=== PATIENT | male | born 1935 ===

== ENCOUNTER 2023-04-15 09:50 | Inpatient (IN) | payer MEDICARE, OTHER ==
--- NOTE | 2023-04-15 10:13 | ED Physician Documentation ---
PD HPI ABD PAIN - Stated complaint Stated Complaint: D/N/WEAK - Chief complaint Chief Complaint: Abd Pain - History obtained from History obtained from: Patient - History of Present Illness Timing - onset: How many days ago (2-3) Timing - duration: Days (2-3) Timing - details: Abrupt onset, Still present Quality: Cramping, Aching, Pain Location: Epigastric, Periumbilical Radiation: No: Chest, Lower back Improved by: No: Eating Worsened by: Eating. No: Moving, Breathing Associated symptoms: Nausea, Melena. No: Fever, Vomiting, Dysuria (has penaloza leg bag chronically), Near syncope / syncope (but feeling of generally weak this morning.) Similar symptoms before: Has not had sx before Recently seen: Not recently seen Review of Systems Constitutional: reports: Fatigue. denies: Fever, Chills Nose: denies: Rhinorrhea / runny nose, Congestion Cardiac: denies: Chest pain / pressure Respiratory: denies: Dyspnea, Cough GI: reports: Abdominal Pain (epigastric area), Nausea, Bloody / black stool (loose stool with dark black coloring.). denies: Vomiting, Constipation : denies: Dysuria Neurologic: reports: Generalized weakness, Near syncope (today was having lightheadedness.). denies: Syncope, Altered mental status Endocrine: denies: Easy bruising / bleeding PD PAST MEDICAL HISTORY - Past Medical History Cardiovascular: Hypertension Respiratory: None Neuro: None Endocrine/Autoimmune: None : Indwelling catheter Psych: None - Present Medications Home Medications: Ambulatory Orders Medication Instructions Recorded Confirmed Metoprolol Succinate 100 mg PO DAILY 04/15/23 04/15/23 Tamsulosin [Flomax] 0.4 mg PO DAILY 04/15/23 04/15/23 - Allergies Allergies/Adverse Reactions: Allergies Allergy/AdvReac Type Severity Reaction Status Date / Time No Known Drug Allergies Allergy Verified 04/15/23 10:13 PD ED PE NORMAL - Vitals Vital signs reviewed: Yes - General General: Alert and oriented X 3, Well developed/nourished, Other (pale) - HEENT HEENT: Pharynx benign - Neck Neck: Supple, no meningeal sign, No adenopathy - Cardiac Cardiac: RRR, No murmur - Respiratory Respiratory: No respiratory distress, Clear bilaterally - Abdomen Abdomen: Soft, Non distended, Other (Tender with some local guarding in the epigastric area. No percussion or rebound tenderness. Lower abdomen nontender. Liver does feel slightly enlarged to palpation.). No: Normal bowel sounds (decreased) - Male Male : Deferred - Rectal Rectal: Other (Dark odorous melena appearing stool at the rectum and in his underpants.) - Back Back: No CVA TTP - Derm Derm: Warm and dry. No: Normal color (pale) - Extremities Extremities: No edema, No calf tenderness / cord - Neuro Neuro: Alert and oriented X 3, No motor deficit, Normal speech Results - Vitals Vitals: Vital Signs - 24 hr 04/15/23 04/15/23 04/15/23 10:08 10:29 10:49 Temperature 36.4 C L Heart Rate 99 90 89 Respiratory 30 H 18 18 Rate Blood Pressure 60/34 L 97/55 L 81/50 L O2 Saturation 98 96 98 04/15/23 04/15/23 11:44 12:30 Temperature Heart Rate 99 104 H Respiratory 18 25 H Rate Blood Pressure 109/75 94/52 L O2 Saturation 97 97 Oxygen O2 Source Room air - Labs Labs: Microbiology 04/15/23 10:23 Occult Blood - Final Stool - Loose Consistency Laboratory Tests 04/15/23 04/15/23 04/15/23 10:16 10:16 10:16 WBC 17.0 H RBC 2.84 L Hgb 10.1 L Hct 30.8 L MCV 108.5 H MCH 35.6 H MCHC 32.8 RDW 13.6 Plt Count 249 MPV 9.2 Neut # (Auto) 13.8 H Lymph # (Auto) 0.9 L Page # (Auto) 1.9 H Eos # (Auto) 0.0 Baso # (Auto) 0.0 Absolute Nucleated RBC 0.00 Nucleated RBC % 0.0 PT 14.0 H INR 1.3 H APTT 28.0 Sodium 130 L Potassium 5.2 H Chloride 97 L Carbon Dioxide 22 Anion Gap 11.0 BUN 75 H Creatinine 1.2 Estimated GFR (MDRD) 57 L Glucose 132 H Calcium 9.6 Magnesium 1.9 Total Bilirubin 0.4 AST 14 ALT 8 L Alkaline Phosphatase 330 H B-Natriuretic Peptide Total Protein 5.2 L Albumin 2.9 L Globulin 2.3 Albumin/Globulin Ratio 1.3 Lipase 11 Carcinoembryonic Ag Free PSA % Free PSA Total PSA Nasal Adenovirus (PCR) Nasal B. parapertussis DNA (PCR) Nasal Coronavir 229E PCR Nasal Coronavir HKU1 PCR Nasal Coronavir NL63 PCR Nasal Coronavir OC43 PCR Nasal Enterovir/Rhinovir PCR Nasal Influenza B PCR Nasal Influenza A PCR Nasal Parainfluen 1 PCR Nasal Parainfluen 2 PCR Nasal Parainfluen 3 PCR Nasal Parainfluen 4 PCR Nasal RSV (PCR) Nasal B.pertussis DNA PCR Nasal C.pneumoniae (PCR) Graham Human Metapneumo PCR Nasal M.pneumoniae (PCR) Nasal SARS-CoV-2 (PCR) Ethyl Alcohol 40.3 Blood Type Blood Type Recheck Antibody Screen 04/15/23 04/15/23 04/15/23 10:16 10:16 10:16 WBC RBC Hgb Hct MCV MCH MCHC RDW Plt Count MPV Neut # (Auto) Lymph # (Auto) Page # (Auto) Eos # (Auto) Baso # (Auto) Absolute Nucleated RBC Nucleated RBC % PT INR APTT Sodium Potassium Chloride Carbon Dioxide Anion Gap BUN Creatinine Estimated GFR (MDRD) Glucose Calcium Magnesium Total Bilirubin AST ALT Alkaline Phosphatase B-Natriuretic Peptide 82 Total Protein Albumin Globulin Albumin/Globulin Ratio Lipase Carcinoembryonic Ag 32.5 Free PSA > 176.000 H % Free PSA TNP Total PSA 1240.000 H Nasal Adenovirus (PCR) Nasal B. parapertussis DNA (PCR) Nasal Coronavir 229E PCR Nasal Coronavir HKU1 PCR Nasal Coronavir NL63 PCR Nasal Coronavir OC43 PCR Nasal Enterovir/Rhinovir PCR Nasal Influenza B PCR Nasal Influenza A PCR Nasal Parainfluen 1 PCR Nasal Parainfluen 2 PCR Nasal Parainfluen 3 PCR Nasal Parainfluen 4 PCR Nasal RSV (PCR) Nasal B.pertussis DNA PCR Nasal C.pneumoniae (PCR) Graham Human Metapneumo PCR Nasal M.pneumoniae (PCR) Nasal SARS-CoV-2 (PCR) Ethyl Alcohol Blood Type Blood Type Recheck Antibody Screen 04/15/23 04/15/23 04/15/23 10:38 10:58 12:10 WBC RBC Hgb 9.3 L Hct 28.2 L MCV MCH MCHC RDW Plt Count MPV Neut # (Auto) Lymph # (Auto) Page # (Auto) Eos # (Auto) Baso # (Auto) Absolute Nucleated RBC Nucleated RBC % PT INR APTT Sodium Potassium Chloride Carbon Dioxide Anion Gap BUN Creatinine Estimated GFR (MDRD) Glucose Calcium Magnesium Total Bilirubin AST ALT Alkaline Phosphatase B-Natriuretic Peptide Total Protein Albumin Globulin Albumin/Globulin Ratio Lipase Carcinoembryonic Ag Free PSA % Free PSA Total PSA Nasal Adenovirus (PCR) NOT DETECTED Nasal B. parapertussis DNA (PCR) NOT DETECTED Nasal Coronavir 229E PCR NOT DETECTED Nasal Coronavir HKU1 PCR NOT DETECTED Nasal Coronavir NL63 PCR NOT DETECTED Nasal Coronavir OC43 PCR NOT DETECTED Nasal Enterovir/Rhinovir PCR NOT DETECTED Nasal Influenza B PCR NOT DETECTED Nasal Influenza A PCR NOT DETECTED Nasal Parainfluen 1 PCR NOT DETECTED Nasal Parainfluen 2 PCR NOT DETECTED Nasal Parainfluen 3 PCR NOT DETECTED Nasal Parainfluen 4 PCR NOT DETECTED Nasal RSV (PCR) NOT DETECTED Nasal B.pertussis DNA PCR NOT DETECTED Nasal C.pneumoniae (PCR) NOT DETECTED Graham Human Metapneumo PCR NOT DETECTED Nasal M.pneumoniae (PCR) NOT DETECTED Nasal SARS-CoV-2 (PCR) NOT DETECTED Ethyl Alcohol Blood Type O POSITIVE Blood Type Recheck Antibody Screen NEGATIVE 04/15/23 12:10 WBC RBC Hgb Hct MCV MCH MCHC RDW Plt Count MPV Neut # (Auto) Lymph # (Auto) Page # (Auto) Eos # (Auto) Baso # (Auto) Absolute Nucleated RBC Nucleated RBC % PT INR APTT Sodium Potassium Chloride Carbon Dioxide Anion Gap BUN Creatinine Estimated GFR (MDRD) Glucose Calcium Magnesium Total Bilirubin AST ALT Alkaline Phosphatase B-Natriuretic Peptide Total Protein Albumin Globulin Albumin/Globulin Ratio Lipase Carcinoembryonic Ag Free PSA % Free PSA Total PSA Nasal Adenovirus (PCR) Nasal B. parapertussis DNA (PCR) Nasal Coronavir 229E PCR Nasal Coronavir HKU1 PCR Nasal Coronavir NL63 PCR Nasal Coronavir OC43 PCR Nasal Enterovir/Rhinovir PCR Nasal Influenza B PCR Nasal Influenza A PCR Nasal Parainfluen 1 PCR Nasal Parainfluen 2 PCR Nasal Parainfluen 3 PCR Nasal Parainfluen 4 PCR Nasal RSV (PCR) Nasal B.pertussis DNA PCR Nasal C.pneumoniae (PCR) Graham Human Metapneumo PCR Nasal M.pneumoniae (PCR) Nasal SARS-CoV-2 (PCR) Ethyl Alcohol Blood Type Blood Type Recheck O POSITIVE Antibody Screen - Rads (name of study) chest xray Relevant Findings:: Prelim report reviewed, EMP independent interpretation of test (left effusion. cardiomegaly. No infiltrate per se.) Abdpelvic CT angio Relevant Findings:: Prelim report reviewed (prostate enlarged and irregular. Some wall thickening in rectal area. Bone lytic lesions spine and left 8th rib fracture. Left lower lung pneumonia versus tumor.), EMP independent interpretation of test PD Medical Decision Making - ED course Complexity details: reviewed results, re-evaluated patient (After 2 L of fluid his blood pressure is now normotensive at 109 systolic. Heart rate remains nontachycardic though he is on a beta-julianna. He is still having some moderate pain in the upper abd and I can give some medication for that at this point. His color is improve), considered differential (having initially low BP and has melena stools and epigastric pains for 2-3 days. Presume ulcer/gastritis, with GI bleed. Will get blood count, type and screen, chemistry panel. Will get CT angio of abd. ), d/w patient, d/w [employer] consultant (tomya cted dr mikie nieto, who will consult. Talked with Dr. Delgado - has GI bleed as immediate issue. Has apparent prostate issue or rectal, with spine bone mets and a lung pneumonia versus tumor. These will need evaluating. He has penaloza and Urologist at [facility]. Presume prostate biopsy outpt.) Reviewed Lab Results: Initial blood count shows a hemoglobin of 10. He does not need transfusing at this time. We will recheck it in 1 to 2 hours. ED course: BP improved to above 100 systolic with 1-2 liters NS fluid bolus. Given IV protonix. Also some pain meds IV dilaudid 0.5 mg once BP improved. His color improved from pale to better color. Initial Hgb was 10 so not needing transfusion yet. Will recheck blood count in 1-2 hours. Rectal exam was rory melena wihtout red blood. No noted mass. Sent card to lab. - Critical Care Time(min): 45 Comments: GI bleeding. Initially hypotensive. Time Includes: Direct patient care, Reassess patient, Coordinate care, Medical consult Data interpretation: Labs Procedures excluded from critical care time: EKG Departure - Departure Disposition: 66 [facility] DC/Xfer Clinical Impression: Transient hypotension, Acute GI bleeding, Enlarged prostate, Chronic indwelling Penaloza catheter, Lesion of lung, Bone lesion Condition: Serious Record reviewed to determine appropriate education?: Yes Discharge Date/Time: 04/15/23 14:06
[2023-04-15] MEDS ORDERED: SODIUM CHLORIDE 0.9% 1,000 ML IV STA ×4 (10:26→13:10)
[2023-04-15] MEDS ORDERED: PANTOPRAZOLE 40 MG VIAL IVP STA (10:27)
[2023-04-15 10:38] LABS: BASOPHILS % (AUTO) 0.2 %; HCT - HEMATOCRIT 30.8 % (42.0-52.0); HGB - HEMOGLOBIN 10.1 g/dL (14.0-18.0); LYMPHOCYTES # (AUTO) 0.9 10^3/uL (1.5-3.5); LYMPHOCYTES % (AUTO) 5.5 %; MEAN CORPUSCULAR HEMOGLOBIN 35.6 pg (27.0-31.0); MEAN CORPUSCULAR HGB CONC 32.8 g/dL (32.0-36.0); MEAN CORPUSCULAR VOLUME 108.5 fL (80.0-94.0); MEAN PLATELET VOLUME 9.2 fL (7.4-11.4); MONOCYTES # (AUTO) 1.9 10^3/uL (0.0-1.0); MONOCYTES % (AUTO) 11.3 %; NEUTROPHILS # (AUTO) 13.8 10^3/uL (1.5-6.6); NEUTROPHILS % (AUTO) 80.9 %; PLT - PLATELET COUNT 249 10^3/uL (130-450); RED BLOOD COUNT 2.84 10^6/uL (4.70-6.10); RED CELL DISTRIBUTION WIDTH 13.6 % (12.0-15.0)
[2023-04-15 10:48] LABS: ALBUMIN 2.9 g/dL (3.2-5.5); ALBUMIN/GLOBULIN RATIO 1.3 (1.0-2.2); BILIRUBIN,TOTAL 0.4 mg/dL (0.2-1.0); CALCIUM 9.6 mg/dL (8.5-10.3); CREATININE 1.2 mg/dL (0.6-1.3); ETOH - ETHANOL 40.3 mg/dL; MAGNESIUM 1.9 mg/dL (1.7-2.3); POTASSIUM 5.2 mmol/L (3.5-4.5); TOTAL PROTEIN 5.2 g/dL (6.4-8.9)
[2023-04-15 10:51] LABS: INR 1.3 (0.8-1.2)
--- NOTE | 2023-04-15 10:51 | XRAY Report ---
PROCEDURE: Chest 1 View X-Ray INDICATIONS: chest pain TECHNIQUE: One view of the chest was acquired. COMPARISON: None. FINDINGS: Surgical changes and devices: None. Lungs and pleura: No pneumothorax is seen. There is blunting of the left costophrenic angle. General ized prominence can be seen. No rory focal infiltrates are seen. Mediastinum: Mediastinal contours appear normal. Heart size is moderately enlarged. Calcification i s seen of the aortic arch. Bones and chest wall: No suspicious bony lesions. Age-appropriate degenerative changes are seen. Overlying soft tissues appear unremarkable. IMPRESSION: Cardiomegaly and interstitial prominence with a likely left-sided pleural effusion. CHF is suspected. Reviewed by: Carlos Mccarthy MD on 04/15/2023 9:49 AM AVELINA Approved by: Carlos Mccarthy MD on 04/15/2023 9:49 AM AVELINA Station ID: [id number]
[2023-04-15] MEDS ORDERED: HYDROmorphone 0.5 MG/0.5 ML SYRINGE IVP STA (11:47)
[2023-04-15 11:53] LABS: B. PARAPERTUSSIS- RESP PCR PAN NOT DETECTED; B. PERTUSSIS- RESP PCR PANEL NOT DETECTED; C. PNEUMONIAE- RESP PCR PANEL NOT DETECTED; CORONAVIRUS 229E-RESP PCR NOT DETECTED; CORONAVIRUS HKU1-RESP PCR NOT DETECTED; CORONAVIRUS NL63-RESP PCR NOT DETECTED; CORONAVIRUS OC43-RESP PCR NOT DETECTED; HUMAN METAPNEUMOVIRUS NOT DETECTED; INFLUENZA A- RESP PCR PANEL NOT DETECTED; INFLUENZA B - RESP PCR PANEL NOT DETECTED; M. PNEUMONIAE- RESP PCR PANEL NOT DETECTED; PARAINFLUENZA VIRUS 1 NOT DETECTED; PARAINFLUENZA VIRUS 2 NOT DETECTED; PARAINFLUENZA VIRUS 3 NOT DETECTED; PARAINFLUENZA VIRUS 4 NOT DETECTED; RHINOVIRUS/ENTEROVIRUS NOT DETECTED; RSV- RESP PCR PANEL NOT DETECTED; SARS-CoV-2 -RESP PCR PANEL NOT DETECTED
[2023-04-15] MEDS: MAG HYDROX/AL HYDROX/SIMETH 30 ML UDC PO STA (11:55)
[2023-04-15 12:14] LABS: HCT - HEMATOCRIT 28.2 % (42.0-52.0); HGB - HEMOGLOBIN 9.3 g/dL (14.0-18.0)
--- NOTE | 2023-04-15 12:27 | CT Report ---
PROCEDURE: ANGIO ABDOMEN/PELVIS W INDICATIONS: melena/GI bleeding CONTRAST: 100ml omni 300 TECHNIQUE: After the administration of intravenous contrast, 2.5 mm thick sections acquired from the diaphragm t o the symphysis. 10 mm maximum-intensity projection (MIP) reformats were then acquired. For radiati on dose reduction, the following was used: automated exposure control, adjustment of mA and/or kV ac cording to patient size. COMPARISON: Correlation is made with the accompanying chest radiograph. FINDINGS: Image quality: Excellent. Aorta: Atherosclerotic calcification is seen. 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 Mesenteric arteries: Celiac trunk, superior and inferior mesenteric arteries appear patent. Pelvic arteries: Generalized vascular calcification can be seen, without rory stenosis. Extravascular soft tissues: There is consolidation seen involving the left lower lobe, with internal gas and potential internal necrosis. There is a moderate to large hiatal hernia. The heart size is wi thin normal limits. Mild to moderate coronary artery calcification is seen. Heart size is normal. Li juan miguel is normal in size and enhancement. Water density anterior left renal cysts are seen. Gallbladder wall does not appear thickened. . Biliary system is non dilated. Pancreas enhances normally. No a drenal nodules. The spleen is small and irregular. Kidneys are normal in size and enhancement, withou t hydronephrosis. There is a simple left renal cysts measuring water density and 19 mm. No findings of active GI extravasation can be seen. Moderate wall thickening can be seen involving th e rectum. Non opacified bowel loops otherwise are normal in wall thickness and caliber. No free flui d or air. Diverticulosis can be seen, without rory findings of active diverticulitis. Enlarged retroperitoneal lymph nodes are seen. There is a left periaortic lymph node seen on series 2 image 35 measuring 22 x 20 mm in greatest axial dimension. Enlarged right pelvic lymph nodes are see n, including a lymph node on series 2 image 62 measuring 18 x 17 mm in greatest axial dimension. No ventral hernias. There is a mildly displaced left posterior eighth rib fracture. Remote appearing rib fractures are se en. Numerous sclerotic bony lesions are seen throughout the visualized bones. There is moderate levo convex lumbar scoliosis. There is a degree of bony fusion seen at L2-L3 level. Degenerative changes a re seen throughout. No vertebral body compression fractures. A Lopez catheter seen, which decompresses the bladder. The prostate is irregular. Mild fat-containing bilateral inguinal hernias are seen. IMPRESSION: There is moderate wall thickening seen involving the rectum. Please consider neoplasm in this patient with this given history. - Please consider lower endoscopy for further evaluation. No findings of active GI bleeding can be seen at the time of this study. Enlarged retroperitoneal and right iliac chain lymph nodes are seen, representing metastatic disease until proven otherwise. 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 There is a mildly displaced left posterior eighth rib frac ture. Remote appearing rib fractures are seen. The prostate is irregular. Please consider prostate cancer in this patient with sclerotic bony metast atic disease. 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 Left lower lobe pulmonary lesion, with internal gas and potential internal necrosis. Please consider neoplasm versus necrotizing pneumonia. Small and irregular spleen. 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 Additional findings: Moderate to large hiatal hernia Left anterior liver cysts Simple left renal cyst Diverticulosis, without findings of active diverticulitis. Levoconvex scoliosis Focal L2-L3 degenerative change with vertebral body fusion Lopez catheter Mild bilateral fat-containing inguinal hernias Reviewed by: Carlos Mccarthy MD on 04/15/2023 11:25 AM AVELINA Approved by: Carlos Mccarthy MD on 04/15/2023 11:25 AM AVELINA Station ID: [id number]
[2023-04-15] MEDS ORDERED: ACETAMINOPHEN 325 MG TABLET PO PRN (12:34)
[2023-04-15] MEDS ORDERED: ONDANSETRON 4 MG/2 ML VIAL IVP PRN (12:34)
[2023-04-15] MEDS ORDERED: ONDANSETRON ODT 4 MG TABLET TL PRN (12:34)
--- NOTE | 2023-04-15 12:42 | HISTORY & PHYSICAL EXAMINATION ---
Chief Complaint - Chief Complaint Chief Complaint: Right upper quadrant pain with weakness and diarrhea x3 days History of Present Illness - Admitted From Admitted From:: HOME - History Obtained From Records Reviewed: [facility] History obtained from: Dr. Paz, patient and son (son was on Phone) Exam Limitations: patient keeps falling asleep - History of Present Illness HPI Comment/Other: This is an 88-year-old male who lives alone in his own home. Son lives in a trailer on the same property. When I spoke to the son about dad's history, son was not able to really share very much. He says that dad is a very private person. Son does not know who dad's primary care provider is; how often is dad seen; what dad's medical problems are; or his medications. He does not take his dad to doctors visits. Dad is still independent and drives himself. The patient is very sleepy. Keeps on drifting off in my history. I have to shake his shoulder gently to wake him up. Tells me he sees the [employer] and sees Derek Henao. He has a past medical history of high blood pressure. He says he does not have any other medical problems but his son shared with me that dad had ulcers in his stomach in the past. The only other problem is has is a chronic indwelling Lopez catheter. But patient or son cannot tell me why he has an indwelling Lopez catheter. Patient just says "I cannot pee". When I ask the patient if he has a problem with a large prostate or history of prostate cancer, he says not that he is aware of. He still dresses himself, feeds himself. Drives his car to appointments or to the recycling center with his wine bottles. Son goes to the grocery store for him. According to son tara, 5 years ago patient began drinking heavily. The patient himself denies alcohol abuse. But he used to drink socially. With his . She would control his drinking but only serving him wine when she wanted him to drink. Or she would dilute his glass with ice. When she , he took it very hard and was drinking upwards of 4 to 8 glasses of wine a day. He was started around 3 in the afternoon. Take a break with dinner and TV watching. But then go back to drinking toward the end of his TV watching as he went to bed. He fell several times because he was inebriated. After 3 years he stopped drinking that much. 1 fall really scared him and embarrassed him because he broke a rib. He had to call his son to come get him. Son noticed that after that, he still drank but less so. Anywhere from 1 glass of wine to 3 glasses of wine in the afternoon. 5 weeks ago the patient started developing right rib cage pain. It felt a lot like a rib fracture that he had before. Pretty much that is when he started slowing down. The rib was really hurting him. He was taking Tylenol. Drinking wine to control the pain. He was not taking Motrin, Aleve, ibuprofen etc. The son had some leftover oxycodone and gave his dad 2 tablets and he has been using his son's oxycodone and the alcohol to control his pain. A year ago he was hospitalized at [facility] for urinary tract infection. He was in the hospital for 10 days. He recovered but ever since then he has had a Lopez catheter. He and his son described a procedure where they "stuck something in his lung to see what was behind the left side". But not much more was remembered. After that, he goes every month to get his Lopez change. At the [employer] [facility] with Dr. Derek Henao. Patient describes being "okay" with appetite. No unexpected weight loss. No fevers, chills, sweats. He wears glasses, and may have early cataracts. He is slightly deaf. He coughs every single day and brings up clear phlegm. Denies hemoptysis. He is always short of breath. But he does not wear oxygen. The shortness of breath is mainly when he tries to stand for too long or walk for too long. He does not define what "too long is". He denies chest pain, pleuritic chest pain, orthopnea other than the RL rib cage popping rib pain. Ankles are occasionally swollen but that is not new. He denies any abdominal pain or GI complaints until this last week. He noticed that he was having increasing bowel movements. Sometimes they were black, sometimes they were brown. In contrast to his son's history, he states that he drinks on a daily basis, but only 1 large glass of wine a day. He denies nonsteroidal therapy. He started smoking at the age of 18 and smoked until the age of 62. He denies current smoking. He does not remember having a colonoscopy. He has diffuse bony pain. Back has become more painful is lower T spine and L spine over the last few months. Hips and knees very stiff. In the last few weeks, he has noticed that his right lower rib cage is popping. Every time he takes a deep breath it is a sharp stabbing pain. He has fallen 3 times in the last 6 months because he has been losing his balance. Once he sat down but missed the chair and ended up on the floor. He was not inebriated with that. He denies memory loss, syncope, seizures. He lost his balance because "I am getting old, why do you think?". No new skin lesions. Denies suicidal ideation. Denies depression. In the last 24 to 48 hours the bowel movements have come with increasing frequency and more liquid in consistency. He is starting to become incontinent. He became weak, uncoordinated. Did not have any appetite. When he started feeling like he was having abdominal pain and he was brought in. The abdominal pain is in the upper abdomen, epigastric. Periumbilical. Nonradiating. Took away his appetite. But no emesis or vomiting of blood. In the ER temperature was 36.4. Heart rate 99. Blood pressure 60/34. Respirations 30. 98% on room air. He says abdominal pain was 8 out of a 10. He was alert and oriented and well-nourished well-developed but pale. He is lips had purpleish black discoloration that wipes off. He said that is from his daily wine. He had a soft, nondistended abdomen. Tender with some local guarding in the epigastric area. Lower abdomen was nontender. Liver felt slightly enlarged. On rectal exam he had a dark malodorous melena at the rectum and on his underpants. Hemoglobin was 10.1. White cell count 17. Platelet 249. Sodium 130, potassium 5.2. BUN 75. Creatinine 1.2. Glucose 132. Bili and liver enzymes were normal. Alk phos elevated at 330. Total protein is 5.2. Albumin 2.9. Alcohol was 40. Chest x-ray had cardiomegaly and interstitial prominence with a left-sided pleural effusion. CHF is suspected. Abdomen and pelvis CT angiogram had consolidation involving the left lower lobe with gas and potential internal necrosis. Moderate to large hiatal hernia. Moderate coronary artery calcification. Heart size normal. Bladder density left renal cyst seen. No adrenal nodules. Spleen small and irregular. No findings of active GI extravasation is seen. He has moderate wall thickening involving the rectum. No free fluid or air. Diverticulosis without diverticulitis. Enlarged retroperitoneal lymph nodes. Enlarged periaortic. Enlarged pelvic nodes. A mildly displaced left posterior eighth rib fracture. Other remote rib. Fractures are seen. Numerous sclerotic bony lesions throughout the visualized bones. Moderate levoconvex lumbar scoliosis. Lopez in place. Mild fat- containing bilateral inguinal hernias. The overall picture is enlarged nodes representing metastatic disease, sclerotic bony metastatic disease, one displaced left posterior rib fracture with other rib fractures. An irregular prostate. 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 There is a left lower lobe pulmonary lesion with internal gas and potential necrosis. Consider neoplasm versus necrotizing pneumonia. The patient was discussed with the ER provider. And I initially placed him in observation status thinking he was a simple GI bleed. The case had also been discussed with general surgery for possible endoscopy. I now realize that this patient is a much more complicated medical history with possible complication of tumor, possible future alcohol withdrawal, AND GI bleed. I may end up changing him to inpatient status sooner rather than later. History - Past Medical History Cardiovascular: reports: Hypertension Respiratory: reports: COPD Neuro: reports: Other (falls at home) Endocrine/Autoimmune: reports: None GI: reports: None : reports: Benign prostate hypertrophy, Indwelling catheter HEENT: reports: Chronic vision loss Psych: reports: None Musculoskeletal: reports: Osteoarthritis, Scoliosis, Chronic back pain Derm: reports: None MRSA Hx?: No - Family & Social History Family History Comment/Other: Mom and dad of heart disease respectively at the age of 78 and 80. 2 brothers are . 1 of prostate cancer. He does not know what the second 1 of. His sister is healthy. 2 sons. Both healthy. 1 daughter? is healthy. Living arrangement: At home Living Situation: Alone (Son lives on same property in his own trailer) Social History Notes: Born in [place]. Ended up at [facility] because his dad was in the [employer]. 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 Started smoking at the age of 18 and smoked until the age of 62. Sometimes 2 packs/day. Does not feel he has an alcohol problem. Does not really share with me how much he drinks on direct questioning. is for 5 years. Lives in his own home. Son has a separate trailer on the property nearby.. - Substance History Use: Uses substance without health or social issues: Alcohol Abuse: Recurrent use of substance despite neg consequences: Alcohol Dependence: Experiences withdrawal or developed tolerances: NONE - POLST Patient has POLST: No POLST Status: DNR Meds/Allgy - Home Medications Home Medications: Ambulatory Orders Medication Instructions Recorded Confirmed Metoprolol Succinate 100 mg PO DAILY 04/15/23 04/15/23 Tamsulosin [Flomax] 0.4 mg PO DAILY 04/15/23 04/15/23 - Allergies Allergies/Adverse Reactions: Allergies Allergy/AdvReac Type Severity Reaction Status Date / Time No Known Drug Allergies Allergy Verified 04/15/23 10:13 Review of Systems - Other Findings Other Findings: 13 point review of systems completed and noted in HPI Prior Level of Functionality: Still drives. Rarely. Maybe once or twice a month to get himself to his appointments. Son does the rest with regards to grocery shopping. Still dresses himself, cooks for himself, bathe without assistance. All of this until 2 weeks ago when he started getting weak for unknown reasons. About the same time as when his black stool started. Exam - Vital Signs Reviewed Vital Signs: Yes Vital Signs: Vital Signs x48h Temp Pulse Resp BP Pulse Ox 04/15/23 12:30 104 H 25 H 94/52 L 97 04/15/23 11:44 99 18 109/75 97 04/15/23 10:49 89 18 81/50 L 98 04/15/23 10:29 90 18 97/55 L 96 04/15/23 10:08 36.4 C L 99 30 H 60/34 L 98 - Physical Exam General Appearance: positive: Moderate distress (Some rib retraction, and use of abdominal wall musculature to breathe), Lethargic (Keeps on falling asleep in midsentence. Knows where he is and not understanding why he is here.He knows the date. Eyes close at half mast and not completely.) Eyes Bilateral: positive: PERRL, Other (Left lid drags lower than right lid) ENT: positive: Dry mucous membranes, Other (Blackish purple wine stains on his lower lips) Neck: positive: No JVD, Other (Shotty adenopathy and no stiffness) Respiratory: positive: Other (Tachypnea, appears to be in respiratory distress but denies it. Very quiet lung sounds with prolonged and exhalation phase but no wheezing, rales or rhonchi) Cardiovascular: positive: Regular rate & rhythm, Tachycardia, Systolic murmur Peripheral Pulses: positive: 1+ Abdomen: positive: Nml bowel sounds, Tenderness (Periumbilical and epigastric, mild. No rebound or guarding), Hepatomegaly Rectal: positive: Stool - heme POS, Other (Melanotic black stool at rectal vault and on underwear. Already tested and fecal occult blood positive) Skin: positive: Warm, Dry Extremities: positive: Full ROM, Pedal edema Neurologic/Psychiatric: positive: Oriented x3 (But going in and out of of either consciousness or falling asleep), CN's nml (2-12), Motor nml Conclusion/Plan - Problem List (1) Melena Conclusion/Plan: No previous history of colonoscopy. Patient states he drinks wine on a daily basis but protested is only 1 glass a day. MCV is 108. Differential diagnosis includes upper or lower GI bleed. Because of the possible drinking history he may have alcoholic gastritis. He may have peptic ulcer disease (Especially in view of the fact that he has a previous history of ulcer disease). He may have esophageal varices. There is also the question of the rectal anatomic abnormality seen on CT scan that may end up being prostate cancer. But he would be at risk for colorectal cancer. Plan: Observation status at this time but patient is getting more obtunded and anemic And hypotensive so I will change him to inpatient status Surgery consult for EGD and flex sig Serial hemograms and transfuse below 8 Give normal saline 1 L bolus (2) Acute blood loss anemia Conclusion/Plan: Start Protonix IV push daily Clear liquids until midnight and then make n.p.o. for endoscopy Enema for flex sig tomorrow Check serial hemograms every 6-8 hours and transfuse if below 8, Type and screen PRBC Surgery consult (3) Enlarged prostate Conclusion/Plan: Both the patient and his son state that he has no history of prostate cancer. Yet CT confirms a large prostate. He has a chronic indwelling Lopez catheter. I checked a PSA and his total PSA is 1240. Free PSA is greater than 176. CEA is 32.5. He has multiple bony sclerotic lesions compatible with diffuse metastatic disease. He has a broken rib. And he has possible tumor necrosis in the left upper lobe. Putting it altogether my suspicion is that of metastatic prostate cancer. Plan: I am going to ask [facility] to send me a copy of the admission history and physical and discharge summary from a year ago where he was hospitalized for a UTI. That is when he ended up with a chronic indwelling Lopez catheter. The son describes some type of biopsy procedure of the lung and I am hoping the discharge summary will give me some information there. I have shared my thought process with both the son and the patient. They are both shocked. They feel like they have been completely sideswipe. They never saw this coming. (4) Chronic indwelling Lopez catheter Conclusion/Plan: He reports going [facility] [place] [employer] [facility] to get changed once a month. He sees Dr. Derek Henao. The leg bag is very, very, very foul-smelling. We will provide him with a new 1 and I believe he is already had his Lopez changed out in the ER and I will verify that. I have also asked for records from [facility] to be sent to me to include admission history and physical and discharge summary from a year ago (5) Do not resuscitate status Conclusion/Plan: I asked the patient that if his heart were to stop or his lungs were to stop, did he want me to do all aggressive measures to keep him alive? Did he want me to intubate him and support him with a breathing machine and did he want me to do chest compressions? His answer was immediate and a No. He does not want to be resuscitated. But if he needs antibiotics or blood products or surgery he would like to be considered for those if they could improve the quality of his life. (6) COPD (chronic obstructive pulmonary disease) Conclusion/Plan: He has a widened AP diameter. Is a neck smoker. Has a prolonged and exhalation phase. No outright wheezing. But he is short of breath. I am a little bit alarmed about the tachypnea and the use of abdominal muscles to breathe. I ordered a blood gas and his pH is 7.435, PCO2 34, PO2 64.1. He is on room air. No acidosis and mild alkalosis. PO2 is greater than 60 so does not need o xygen. I was afraid that he was getting hypercapnic and that is why the sleepiness. He tells me he is just exhausted. I will order as needed DuoNeb Qualifiers: COPD type: unspecified COPD Qualified Code(s): J44.9 - Chronic obstructive pulmonary disease, unspecified (7) Macrocytosis Conclusion/Plan: I do not have any old records to see if his anemia is old. How long is his macrocytosis been present? But with wine stains on his lips, and an MCV of 108, and his stated history of an alcohol level of 40 today, with a past history of abuse, I have to suspect current alcohol abuse. I asked the patient point blank if he drank too much and he said no. But he was very cagey about how much he did drink and really could not give me a direct answer. I asked him to be clear with me because I worry about alcohol withdrawal. He said he is never gone through withdrawal. And it should not be a worry during this admission. However his son gave me a different story. Plan: Banana bag He is currently very sleepy. Not agitated. Not hypertensive. But I would start CIWA protocol if he starts getting anxious or irritable (8) Hyperkalemia Conclusion/Plan: Repeat potassium. He is not in acute renal failure. He is not on spironolactone. He is not on an CJ inhibitor. This may be simple cell lysis. - Lab Results Lab results reviewed: Yes Fish Bones: 04/15/23 12:10 04/15/23 10:16 - Diagnostic Imaging Results Diagnostic Imaging Results: positive: Final report reviewed Core Measures - Anticipated LOS I expect patient to be DC'd or transferred within 96 hours.: Yes - DVT/VTE - Prophylaxis VTE/DVT Device ordered at admit?: Yes
[2023-04-15] MEDS: oxyCODONE 5 MG TABLET PO PRN (12:53)
[2023-04-15] MEDS ORDERED: SODIUM CHLORIDE 0.9% 1,000 ML IV SCH (13:00)
--- NOTE | 2023-04-15 13:38 | PHARMACY PROGRESS NOTE ---
- Best Possible Medication History Admit Date and Time: 04/15/23 1234 Processed by: Nursing As the person ultimately responsible for medication therapy, providers are able to order a medication from an existing home medication list in [facility] via the "Reconcile Routine" prior to Confirmation of that medication by client technical support associate. Such practice is discouraged except when the physician, in their clinical judgment, deems that a medical need exists for a medication without regard to previous use.
--- NOTE | 2023-04-15 14:13 | CONSULTATION NOTE ---
Surgery Consult - Admit Date Hospital Admission Date: 04/15/23 - Consult Date Consult Date: 04/15/23 Requesting Provider: Dr. Delgado - Home Meds/Allergies Home Medications: Patient History Medication Instructions Recorded Confirmed Metoprolol Succinate 100 mg PO DAILY 04/15/23 04/15/23 Tamsulosin [Flomax] 0.4 mg PO DAILY 04/15/23 04/15/23 Allergies/Adverse Reactions: Allergies Allergy/AdvReac Type Severity Reaction Status Date / Time No Known Drug Allergies Allergy Verified 04/15/23 10:13 - Vital Signs Vital Signs: Last Vital Signs Temp 97.5 F L 04/15/23 13:17 Pulse 107 H 04/15/23 13:17 Resp 27 H 04/15/23 13:17 BP 110/59 L 04/15/23 13:17 Pulse Ox 98 04/15/23 13:17 O2 Flow Rate Intake & Output: Intake & Output 04/12/23 04/13/23 04/14/23 04/15/23 23:59 23:59 23:59 23:59 Intake Total 3000 Output Total 700 Balance 2300 - Lab Results Result Diagrams: 04/15/23 12:10 04/15/23 10:16 - Consultation Note Consultation Note: General Surgery Consultation Note Assessment: 1) Anemia, suspect due to recent UGI bleed; The melena suggests a likely UGI source 2) Abnormal prostate, sclerotic bone mets, and retroperitoneal and iliac lymphadenopathy on CT scan, suspicious for prostate neoplasm with mets 3) LLL necrosis on CT - etiology unknown 4) History of PUD (1950's) 5) Hyperkalemia 6) Frailty 7) Protein/calorie malnutrition Recommendation: 1) IV fluids 2) IV PPI, oral mylanta prn 3) May have clears; NPO after midnight. 4) Serial H&H, transfuse as indicated 5) EGD and flexible sigmoidoscopy tomorrow. Fleets enema tonight and tomorrow morning. 6) PSA 7) Obtain more information regarding past medical history especially regarding treatment of previous prostate disease. <><><><><><><><><><> Reason for Consultation Melena, anemia Chief Complaint Fatigue, weakness, SOB HPI Mathieu is an 88 year old male who hasn't been feeling well for several weeks. He has lost his appetite and has occasional RUQ discomfort. He tried using Tylenol for the abdominal pain and this helped. Three days ago he became very weak and fatigued. Walking about his home was exhausting and brought on SOB. He started to pass black, liquid stool and experienced dizziness. His son brought him into the ED today where he was found to have melena and anemia. He was admitted to the Medical Hospitalist Service and I was asked to assist in his evaluation and management. Benitez had a prior episode of melena in the 1950's that he thinks was due to a stomach ulcer. He has not been on antacid medication recently and denies the use of ASA or NSAID's. He has never had a colonoscopy and denies a FH of intestinal malignancy. He denies hematemesis, coffee-ground emesis, or hematochezia. Benitez does admit to a dry, non-productive cough that has been present for several weeks. He denies fevers or chills. Past Medical History PUD by history. There are no medical records that document prior treatment. Treated at [facility] one year ago for infection (? doesn't know why). Also doesn't know why bladder catheter was placed. Past Surgical History Right shoulder surgery, age 14, (fracture) T&A Family History Negative for colorectal issues [place] Current Home Medications Metoprolol Tamsulosin Allergies None ROS Pertinent positives Anorexia, melena, RUQ pain, diarrhea, dry, productive cough All other reviewed systems negative Physical Examination Vital Signs: T 97.5, P 107, BP 110/59, RR 27, O2sat 98% (RA) BMI: 27 GENERAL APPEARANCE: Normal development, normal body habitus PSYCHIATRIC: AAO; Comfortable EYES: Pupils equal, round and reactive to light, sclera anicteric EARS, NOSE, MOUTH, THROAT: Hearing normal, Oral mucous membranes moist and without lesions; NECK: No crepitus, lymphadenopathy, or thyromegaly LUNGS: Clear to auscultation without wheezing; No use of accessory muscles to breathe; No pain with deep breath CARDIOVASCULAR: Heart-NSR without murmurs; Palpable carotid arteries - no bruits; ABD: Soft, distended but soft and no tenderness; no ventral hernia; No palpable mass LYMPHATIC: Neck, Axillae, Groin: No palpable adenopathy GENITALIA- Lopez catheter in place RECTAL: Normal sphincter tone, Black stool, Prostate enlarged and firm, No palpable intra-luminal rectal mass on digital exam Labs Hgb 9.3, Hct 28.2, Plt 249K INR 1.3 T.P 5.2; Alb 2.9; ALK Phos 330 Imaging CXR - Poor visualization of the LLL with non-visualization of the left hemidiaphragm CTA ABD/Pelvis - Rectal fullness, enlarged pelvic and retroperitoneal lymph nodes, irregular prostate gland with calcifications, sclerotic bone lesions consistent with mets, multiple old rib fractures, diverticulosis, hiatal hernia, Consolidated left lower lobe of the lung with associated gas (necrosis), No CTA evidence of an active GI bleed All images were personally reviewed by me for this encounter. Sawyer West MD, [facility] General Surgery Service [phone]
[2023-04-15] MEDS: PANTOPRAZOLE 40 MG VIAL IVP SCH (14:38)
[2023-04-15] MEDS ORDERED: SODIUM CHLORIDE 0.9% 1,000 ML IV ONE (15:45)
[2023-04-15 15:54] LABS: ABG PH 7.44 (7.35-7.45)
[2023-04-15 15:55] LABS: ABG BASE EXCESS -1.5 mmol/L (-2.0-3.0); ABG HCO3 22.3 mmol/L (22.0-26.0); ABG OXYGEN SATURATION 92 % (94-98); ABG PCO2 34 mmHg (34-45); ABG PO2 64 mmHg (80-100); ABG TCO2 23.4 MMOL/L (21.0-29.0); ALLEN TEST POSITIVE
[2023-04-15] MEDS: SODIUM CHLORIDE FLUSH 0.9% 10 ML SYRINGE IVP SCH (16:14)
[2023-04-15 16:17] LABS: HCT - HEMATOCRIT 25.9 % (42.0-52.0); HGB - HEMOGLOBIN 8.6 g/dL (14.0-18.0); MEAN CORPUSCULAR HEMOGLOBIN 36.3 pg (27.0-31.0); MEAN CORPUSCULAR HGB CONC 33.2 g/dL (32.0-36.0); MEAN CORPUSCULAR VOLUME 109.3 fL (80.0-94.0); MEAN PLATELET VOLUME 9.2 fL (7.4-11.4); RED BLOOD COUNT 2.37 10^6/uL (4.70-6.10); RED CELL DISTRIBUTION WIDTH 13.9 % (12.0-15.0); WHITE BLOOD COUNT 14.8 x10^3/uL (4.8-10.8)
[2023-04-15] MEDS ORDERED: ZINC OXIDE 20% OINT 30 GM TUBE TOP PRN (16:17)
[2023-04-15] MEDS ORDERED: iohexoL-300 100 ML VIAL IVP ONE (19:23)
[2023-04-15] MEDS: METOPROLOL TARTRATE 25 MG TABLET PO SCH (20:27)
[2023-04-15] MEDS: TAMSULOSIN 0.4 MG CAPSULE PO SCH (20:28)
[2023-04-15 22:16] LABS: HCT - HEMATOCRIT 25.5 % (42.0-52.0); HGB - HEMOGLOBIN 8.3 g/dL (14.0-18.0); MEAN CORPUSCULAR HEMOGLOBIN 35.9 pg (27.0-31.0); MEAN CORPUSCULAR HGB CONC 32.5 g/dL (32.0-36.0); MEAN CORPUSCULAR VOLUME 110.4 fL (80.0-94.0); MEAN PLATELET VOLUME 9.2 fL (7.4-11.4); RED BLOOD COUNT 2.31 10^6/uL (4.70-6.10); RED CELL DISTRIBUTION WIDTH 13.8 % (12.0-15.0); WHITE BLOOD COUNT 13.9 x10^3/uL (4.8-10.8)
[2023-04-16] MEDS: SODIUM CHLORIDE FLUSH 0.9% 10 ML SYRINGE IVP SCH ×4 (00:27→23:38)
[2023-04-16 05:23] LABS: BASOPHILS % (AUTO) 0.2 %; EOSINOPHILS % (AUTO) 0.2 %; HCT - HEMATOCRIT 24.7 % (42.0-52.0); HGB - HEMOGLOBIN 7.9 g/dL (14.0-18.0); LYMPHOCYTES # (AUTO) 0.7 10^3/uL (1.5-3.5); LYMPHOCYTES % (AUTO) 5.6 %; MEAN CORPUSCULAR HEMOGLOBIN 35.4 pg (27.0-31.0); MEAN CORPUSCULAR VOLUME 110.8 fL (80.0-94.0); MEAN PLATELET VOLUME 9.4 fL (7.4-11.4); MONOCYTES # (AUTO) 1.6 10^3/uL (0.0-1.0); MONOCYTES % (AUTO) 12.3 %; NEUTROPHILS # (AUTO) 10.5 10^3/uL (1.5-6.6); NEUTROPHILS % (AUTO) 80.1 %; NRBC ABSOLUTE COUNT (AUTO) 0.03 x10^3/uL; NUCLEATED RED BLOOD CELLS AUTO 0.2 /100WBC; PLT - PLATELET COUNT 199 10^3/uL (130-450); RED BLOOD COUNT 2.23 10^6/uL (4.70-6.10); RED CELL DISTRIBUTION WIDTH 14.1 % (12.0-15.0); WHITE BLOOD COUNT 13.2 x10^3/uL (4.8-10.8)
[2023-04-16 05:32] LABS: SLIDE REVIEW? Indicated
[2023-04-16 05:46] LABS: CALCIUM 9.2 mg/dL (8.5-10.3); CREATININE 0.8 mg/dL (0.6-1.3); POTASSIUM 4.2 mmol/L (3.5-4.5)
[2023-04-16 05:54] LABS: PLATELET ESTIMATE, MANUAL NORMAL (130-450,000) (NORMAL); PLATELET MORPHOLOGY NORMAL APPEARANCE (NORMAL)
[2023-04-16 05:55] LABS: RBC MORPHOLOGY (MULTIPLE) 1+ MACROCYTOSIS (NORMAL); WBC MORPHOLOGY (MULTIPLE) NORMAL APPEARANCE (NORMAL)
[2023-04-16] MEDS: PANTOPRAZOLE 40 MG VIAL IVP SCH (06:25)
[2023-04-16] MEDS ORDERED: SALINE ENEMA 133 ML BOTTLE RC SCH (07:00)
[2023-04-16] MEDS ORDERED: IPRATROPIUM/ALBUTEROL 3 ML NEB INH PRN (07:56)
--- NOTE | 2023-04-16 08:02 | ANESTHESIA ---
Pre-Anesthesia VS, & Labs - Diagnosis anemia - Procedure EGDm flex sig Vital Signs: Temp Pulse Resp BP Pulse Ox O2 Flow Rate 36.5 C 111 H 28 H 96/51 L 94 04/16/23 05:08 04/16/23 05:08 04/16/23 05:08 04/16/23 05:08 04/16/23 05:08 Height: 5 ft 10 in Weight (kg): 84 kg Body Mass Index: 26.5 BMI Classification: Overweight - NPO >8 hours - Lab Results Current Lab Results: Laboratory Tests 04/16/23 04:57: Sodium 134 L, Potassium 4.2, Chloride 105, Carbon Dioxide 25, Anion Gap 4.0 L, BUN 50 H, Creatinine 0.8, Estimated GFR (MDRD) 92, Glucose 116 H, Calcium 9.2 04/16/23 04:57: WBC 13.2 H, RBC 2.23 L, Hgb 7.9 L, Hct 24.7 L, MCV 110.8 H, MCH 35.4 H, MCHC 32.0, RDW 14.1, Plt Count 199, MPV 9.4, Neut # (Auto) 10.5 H, Lymph # (Auto) 0.7 L, Teller # (Auto) 1.6 H, Eos # (Auto) 0.0, Baso # (Auto) 0.0, Absolute Nucleated RBC 0.03, Nucleated RBC % 0.2, Manual Slide Review Indicated, WBC Morphology NORMAL APPEARANCE, Platelet Estimate NORMAL (130-450,000), Platelet Morphology NORMAL APPEARANCE, RBC Morph Micro Appear 1+ MACROCYTOSIS 04/15/23 22:10: WBC 13.9 H, RBC 2.31 L, Hgb 8.3 L, Hct 25.5 L, MCV 110.4 H, MCH 35.9 H, MCHC 32.5, RDW 13.8, Plt Count 205, MPV 9.2 04/15/23 16:06: WBC 14.8 H, RBC 2.37 L, Hgb 8.6 L, Hct 25.9 L, MCV 109.3 H, MCH 36.3 H, MCHC 33.2, RDW 13.9, Plt Count 207, MPV 9.2 04/15/23 15:45: Bld Gas Analysis Time 1555, Sample Site RIGHT RADIAL, ABG pH 7.44, ABG pCO2 34, ABG pO2 64 L, ABG HCO3 22.3, ABG Total CO2 23.4, ABG O2 Saturation 92 L, ABG Base Excess -1.5, [place] Test POSITIVE, Room Air YES 04/15/23 12:10: Blood Type Recheck O POSITIVE 04/15/23 12:10: Hgb 9.3 L, Hct 28.2 L 04/15/23 10:38: Blood Type O POSITIVE, Antibody Screen NEGATIVE 04/15/23 10:16: Free PSA > 176.000 H, % Free PSA TNP, Total PSA 1240.000 H 04/15/23 10:16: Carcinoembryonic Ag 32.5 04/15/23 10:16: B-Natriuretic Peptide 82 04/15/23 10:16: Sodium 130 L, Potassium 5.2 H, Chloride 97 L, Carbon Dioxide 22, Anion Gap 11.0, BUN 75 H, Creatinine 1.2, Estimated GFR (MDRD) 57 L, Glucose 132 H, Calcium 9.6, Magnesium 1.9, Total Bilirubin 0.4, AST 14, ALT 8 L, Alkaline Phosphatase 330 H, Total Protein 5.2 L, Albumin 2.9 L, Globulin 2.3, Albumin/Globulin Ratio 1.3, Lipase 11, Ethyl Alcohol 40.3 04/15/23 10:16: PT 14.0 H, INR 1.3 H, APTT 28.0 04/15/23 10:16: WBC 17.0 H, RBC 2.84 L, Hgb 10.1 L, Hct 30.8 L, MCV 108.5 H, MCH 35.6 H, MCHC 32.8, RDW 13.6, Plt Count 249, MPV 9.2, Neut # (Auto) 13.8 H, Lymph # (Auto) 0.9 L, Teller # (Auto) 1.9 H, Eos # (Auto) 0.0, Baso # (Auto) 0.0, Absolute Nucleated RBC 0.00, Nucleated RBC % 0.0 Fish Bones: 04/16/23 04:57 04/16/23 04:57 Home Medications and Allergies Home Medications: Ambulatory Orders Metoprolol Succinate 100 mg PO DAILY 04/15/23 Tamsulosin [Flomax] 0.4 mg PO DAILY 04/15/23 Active Medications Acetaminophen (Acetaminophen 325 Mg Tablet) 650 mg PO Q4HR PRN PRN Reason: Pain 1 to 4, or Fever Last Admin: 04/15/23 12:53 Dose: 650 mg Albuterol/Ipratropium (Ipratropium/Albuterol 3 Ml Neb) 3 ml INH RTQID PRN PRN Reason: Shortness of Air/Wheezing Multivitamins 10 ml/ Thiamine HCl 100 mg/ Magnesium Sulfate 2 gm/ Folic Acid 1 mg/ Sodium Chloride 1,015.2 mls @ 100 mls/hr IV DAILY [facility] Methylprednisolone (Methylprednisolone Succinate 40 Mg/Ml Vial) 40 mg IVP TID [facility] Metoprolol Tartrate (Metoprolol Tartrate 25 Mg Tablet) 25 mg PO BID [facility] Last Admin: 04/15/23 20:27 Dose: Not Given Multi-Ingredient Ointment (Zinc Oxide 20% Oint 30 Gm Tube) 1 applic TOP PRN PRN PRN Reason: Skin Care Ondansetron HCl (Ondansetron Odt 4 Mg Tablet) 4 mg TL Q6HR PRN PRN Reason: Nausea / Vomiting Ondansetron HCl (Ondansetron 4 Mg/2 Ml Vial) 4 mg IVP Q6HR PRN PRN Reason: Nausea / Vomiting Oxycodone HCl (Oxycodone 5 Mg Tablet) 5 mg PO Q4HR PRN PRN Reason: Pain 5 to 7 Last Admin: 04/15/23 12:53 Dose: 5 mg Pantoprazole Sodium (Pantoprazole 40 Mg Vial) 40 mg IVP QDAC [facility] Last Admin: 04/16/23 06:25 Dose: 40 mg Sodium Biphosphate/Sodium Phosphate (Saline Enema 133 Ml Bottle) 133 ml RC ONCE [facility] Stop: 04/16/23 09:00 Last Admin: 04/16/23 06:38 Dose: 133 ml Sodium Chloride (Sodium Chloride Flush 0.9% 10 Ml Syringe) 10 ml IVP PRN PRN PRN Reason: NEEDED PER PROVIDER ORDERS Sodium Chloride (Sodium Chloride Flush 0.9% 10 Ml Syringe) 10 ml IVP 0100,0900,1700 [facility] Last Admin: 04/16/23 00:27 Dose: 10 ml Tamsulosin HCl (Tamsulosin 0.4 Mg Capsule) 0.4 mg PO QPM [facility] Last Admin: 04/15/23 20:28 Dose: 0.4 mg Metoprolol Succinate 100 mg PO DAILY 04/15/23 Tamsulosin [Flomax] 0.4 mg PO DAILY 04/15/23 Allergies/Adverse Reactions: Allergies Allergy/AdvReac Type Severity Reaction Status Date / Time No Known Drug Allergies Allergy Verified 04/15/23 10:13 Anes History & Medical History - Anesthetic History Anesthesia Complications: reports: No previous complications Family history of Anesthesia Complications: Denies Family history of Malignant Hyperthermia: Denies - Medical History Cardiovascular: reports: Hypertension Pulmonary: reports: COPD, Shortness of breath, Other Gastrointestinal: reports: GI bleed Urinary: reports: Benign prostate hypertrophy, Indwelling catheter Neuro: reports: None Musculoskeletal: reports: Osteoarthritis, Scoliosis, Chronic back pain Endocrine/Autoimmune: reports: None Skin: reports: None Smoking Status: Former smoker Psychosocial: reports: Alcohol (heavy ETOH) Exam General: Alert, Moderate distress Dental: Poor dentition Mouth Openin Fingerbreadth Neck Mobility: Normal Mallampati classification: II Thyromental Distance: 4-6 cm Respiratory: Accessory muscle use, Rhonchi, Wheezing, Expiration Cardiovascular: Regular rate Plan Anesthesia Type: General, Total IV Consent for Procedure(s) Verified and Reviewed: Yes Code Status: Attempt Resuscitation ASA classification: 4-Incapacitating disease Is this case an emergency?: No
[2023-04-16] MEDS: methylPREDNISolone SUCCINATE 40 MG/ML VIAL IVP SCH ×3 (08:29→21:43)
[2023-04-16] MEDS ORDERED: MORPHINE 2 MG/ML CARPUJECT IVP PRN (08:29)
[2023-04-16] MEDS ORDERED: MULTIVITAMIN 10 ML, THIAMINE INJ 100 MG, MAGNESIUM SULFATE 2 GM, FOLIC ACID INJ 1 MG in... IV SCH ×5 (09:00)
[2023-04-16] MEDS ORDERED: PROPOFOL 200 MG/20 ML VIAL IVP ONE (09:23)
[2023-04-16] MEDS ORDERED: PHENYLEPHRINE 10 MG/ML VIAL ONE (10:04)
--- NOTE | 2023-04-16 10:23 | OPERATIVE REPORT ---
Operative Report - General Admit Date: 04/15/23 - Other Other Information/Narrative: General Surgery Brief Procedure Note - See Provation for details EGD - Distal esophageal erosions, not actively bleeding; Esophageal varices, Intra-thoracic stomach without evidence of gastritis or ulceration, Normal antrum and pylorus, normal duodenum (1,2), No old or fresh blood in the UGI tract Flex Sig - Normal anus, normal rectal mucosa to 28 cm; melena present. Sawyer West MD General Surgery
--- NOTE | 2023-04-16 10:35 | ANESTHESIA POST OP EVALUATION ---
Anesthesia Post Eval - Post Anesthesia Eval Vitals: Last Vital Signs Temp 37.1 C 04/16/23 10:15 Pulse 116 H 04/16/23 10:31 Resp 28 H 04/16/23 10:15 BP 120/61 04/16/23 10:31 Pulse Ox 92 04/16/23 10:31 O2 Flow Rate CV Function Including HR & BP: Stable Pain Control: Satisfactory Nausea & Vomiting: Negative Mental Status: Baseline Respiratory Status: Airway Patent Hydration Status: Satisfactory Anesthesia Complications: None
[2023-04-16] MEDS: oxyCODONE 5 MG TABLET PO PRN ×2 (10:39→21:43)
[2023-04-16] MEDS: METOPROLOL TARTRATE 25 MG TABLET PO SCH ×2 (10:40→21:41)
[2023-04-16] MEDS ORDERED: LORazepam 2 MG/ML VIAL IVP PRN (11:07)
--- NOTE | 2023-04-16 11:12 | PROVIDER PROGRESS NOTE ---
Subjective - Prog Note Date Prog Note Date: 04/16/23 Prog Note Time: 11:10 - Subjective Pt reports feeling: No change Subjective: Very cranky. His right rib hurts from where it keeps on "popping". At one point he said that it hurt too much and he did not want to do the EGD. I ordered morphine 2 mg every 2 hours as needed. That was able to control the pain for him to go to EGD. General surgery discussed the findings with me. He has distal esophageal erosions, they are not actively bleeding. He does not have esophageal varices. His stomach is in his chest with a hiatal hernia and there is no evidence of gastritis or ulceration. He has a normal antrum and pylorus. Normal duodenum. No blood was identified in the upper GI tract. As for the flex sig, he went up to 28 cm and there was melena present but it was a normal anus and normal rectum with no lesions seen. The patient is getting increasingly tachycardic, tachypneic and agitated as the morning has gone on. I explained to him that I think he starting alcohol withdrawal. Both sons were at the bedside this morning. Michael and Edy. They asked to speak to me. Nurse let them know that I would be there as soon as they could finish my morning rounds and when I went to the room, both sons were gone. Linn, daughter, was also at the bedside later. I fully updated her on her dad's problems of 1 alcohol abuse, 2 mild alcohol withdrawal, 3 probable metastatic prostate cancer. This resulted in a 45-minute conversation. With the patient and with Linn. At 1 point Linn did leave the room to give her dad privacy and to allow him independent decision thought process. Please see separate dictation under advance care planning. He tells me he is just really tired. The morphine is helping with the rib pain but he says that it makes him sleepy. Current Medications - Current Medications Current Medications: Active Medications Acetaminophen (Acetaminophen 325 Mg Tablet) 650 mg PO Q4HR PRN PRN Reason: Pain 1 to 4, or Fever Last Admin: 04/15/23 12:53 Dose: 650 mg Albuterol/Ipratropium (Ipratropium/Albuterol 3 Ml Neb) 3 ml INH RTQID PRN PRN Reason: Shortness of Air/Wheezing Last Admin: 04/16/23 08:50 Dose: 3 ml Chlordiazepoxide HCl (Chlordiazepoxide 5 Mg Capsule) 10 mg PO Q6HR [facility] Last Admin: 04/16/23 11:28 Dose: 10 mg Multivitamins 10 ml/ Thiamine HCl 100 mg/ Magnesium Sulfate 2 gm/ Folic Acid 1 mg/ Sodium Chloride 1,015.2 mls @ 100 mls/hr IV DAILY [facility] Last Admin: 04/16/23 10:40 Dose: 100 mls/hr Ceftriaxone Sodium 2 gm/ (Sodium Chloride) 100 mls @ 200 mls/hr IV DAILY [facility] Last Infusion: 04/16/23 12:00 Dose: Infused Lorazepam (Lorazepam 2 Mg/Ml Vial) 1 mg IVP Q30M PRN; Protocol PRN Reason: CIWA >8 Methylprednisolone (Methylprednisolone Succinate 40 Mg/Ml Vial) 40 mg IVP TID [facility] Last Admin: 04/16/23 14:05 Dose: 40 mg Metoprolol Tartrate (Metoprolol Tartrate 25 Mg Tablet) 25 mg PO BID [facility] Last Admin: 04/16/23 10:40 Dose: 25 mg Morphine Sulfate (Morphine 2 Mg/Ml Carpuject) 2 mg IVP Q2HR PRN PRN Reason: Severe Pain (Level 7-10) Last Admin: 04/16/23 09:01 Dose: 2 mg Multi-Ingredient Ointment (Zinc Oxide 20% Oint 30 Gm Tube) 1 applic TOP PRN PRN PRN Reason: Skin Care Nicotine (Nicotine 14 Mg Patch) 1 patch TOP DAILY [facility] Last Admin: 04/16/23 14:38 Dose: 1 patch Ondansetron HCl (Ondansetron Odt 4 Mg Tablet) 4 mg TL Q6HR PRN PRN Reason: Nausea / Vomiting Ondansetron HCl (Ondansetron 4 Mg/2 Ml Vial) 4 mg IVP Q6HR PRN PRN Reason: Nausea / Vomiting Oxycodone HCl (Oxycodone 5 Mg Tablet) 5 mg PO Q4HR PRN PRN Reason: Pain 5 to 7 Last Admin: 04/16/23 10:39 Dose: 5 mg Pantoprazole Sodium (Pantoprazole 40 Mg Vial) 40 mg IVP BID [facility] Sodium Chloride (Sodium Chloride Flush 0.9% 10 Ml Syringe) 10 ml IVP PRN PRN PRN Reason: NEEDED PER PROVIDER ORDERS Sodium Chloride (Sodium Chloride Flush 0.9% 10 Ml Syringe) 10 ml IVP 0100,0900,1700 [facility] Last Admin: 04/16/23 09:02 Dose: 10 ml Tamsulosin HCl (Tamsulosin 0.4 Mg Capsule) 0.4 mg PO QPM [facility] Last Admin: 04/15/23 20:28 Dose: 0.4 mg Metoprolol Succinate 100 mg PO DAILY 04/15/23 Tamsulosin [Flomax] 0.4 mg PO DAILY 04/15/23 Objective - Vital Signs/Intake & Output Reviewed Vital Signs: Yes Vital Signs: Vital Signs x48h Temp Pulse Pulse Resp BP BP Pulse Ox 04/16/23 10:51 119 H 30 H 118/63 91 L 04/16/23 10:40 118/63 04/16/23 10:31 116 H 120/61 92 04/16/23 10:15 37.1 C 117 H 28 H 117/57 L 94 04/16/23 08:51 110 H 22 04/16/23 08:04 36.6 C 114 H 26 H 105/52 L 92 04/16/23 05:08 36.5 C 111 H 28 H 96/51 L 94 Intake & Output: Intake & Output 04/13/23 04/14/23 04/15/23 04/16/23 23:59 23:59 23:59 23:59 Intake Total 4830 Output Total 1475 600 Balance 3355 -600 - Objective General Appearance: positive: No acute distress, Moderate distress (From rib pain. And he is short of breath.), Other (Oriented to person, place, time and situation. Intermittently sleepy due to morphine. When I spoke to him he had not yet received an injection.) Eyes Bilateral: positive: PERRL, EOMI ENT: positive: No signs of dehydration Neck: positive: No JVD. negative: Stiff neck Respiratory: positive: Wheezes, Other (He is exhausted. He tells me that he just gets short of breath talking. He will have slight rib retraction and use of abdominal wall muscles to breathe when he has a bunch of sentences strung together. But if at rest, listening to the conversation, he is much more comfortable.). negative: Rales, Rhonchi Cardiovascular: positive: Regular rate & rhythm Abdomen: positive: Non-tender, No organomegaly, Nml bowel sounds, No distention Skin: positive: Warm (He will hold onto my hand and tells me "your hands are too cold"), Dry Extremities: positive: Full ROM, Other (Thick legs with "cankles" , nonpitting. onychomycosis.) Neurologic/Psychiatric: positive: Oriented x3, CN's nml (2-12), Motor nml (but severely fatigued.) - Lab Results Fish Bones: 04/16/23 04:57 04/16/23 04:57 Other Labs: Lab Results x24hrs 04/16/23 04/16/23 04/15/23 Range/Units 04:57 04:57 22:10 WBC 13.2 H 13.9 H (4.8-10.8) x10^3/uL RBC 2.23 L 2.31 L (4.70-6.10) 10^6/uL Hgb 7.9 L 8.3 L (14.0-18.0) g/dL Hct 24.7 L 25.5 L (42.0-52.0) % MCV 110.8 H 110.4 H (80.0-94.0) fL MCH 35.4 H 35.9 H (27.0-31.0) pg MCHC 32.0 32.5 (32.0-36.0) g/dL RDW 14.1 13.8 (12.0-15.0) % Plt Count 199 205 (130-450) 10^3/uL MPV 9.4 9.2 (7.4-11.4) fL Neut # (Auto) 10.5 H (1.5-6.6) 10^3/uL Lymph # (Auto) 0.7 L (1.5-3.5) 10^3/uL [place] # (Auto) 1.6 H (0.0-1.0) 10^3/uL Eos # (Auto) 0.0 (0.0-0.7) 10^3/uL Baso # (Auto) 0.0 (0.0-0.1) 10^3/uL Absolute Nucleated RBC 0.03 x10^3/uL Nucleated RBC % 0.2 /100WBC Manual Slide Review Indicated WBC Morphology NORMAL APPEARANCE (NORMAL) Platelet Estimate NORMAL (130-450,000) (NORMAL) Platelet Morphology NORMAL APPEARANCE (NORMAL) RBC Morph Micro Appear 1+ MACROCYTOSIS (NORMAL) Bld Gas Analysis Time Sample Site ABG pH (7.35-7.45) ABG pCO2 (34-45) mmHg ABG pO2 (80-100) mmHg ABG HCO3 (22.0-26.0) mmol/L ABG Total CO2 (21.0-29.0) MMOL/L ABG O2 Saturation (94-98) % ABG Base Excess (-2.0-3.0) mmol/L J[place]quin Test Room Air Sodium 134 L (135-145) mmol/L Potassium 4.2 (3.5-4.5) mmol/L Chloride 105 (101-111) mmol/L Carbon Dioxide 25 (21-32) mmol/L Anion Gap 4.0 L (6-13) BUN 50 H (6-20) mg/dL Creatinine 0.8 (0.6-1.3) mg/dL Estimated GFR (MDRD) 92 (>89) Glucose 116 H (74-104) mg/dL Calcium 9.2 (8.5-10.3) mg/dL B-Natriuretic Peptide (5-100) pg/mL Carcinoembryonic Ag ng/mL Free PSA (0.16-2.81) ng/mL % Free PSA Total PSA (0.000-2.000) ng/mL Nasal Adenovirus (PCR) Nasal B. parapertussis DNA (PCR) Nasal Coronavir 229E PCR Nasal Coronavir HKU1 PCR Nasal Coronavir NL63 PCR Nasal Coronavir OC43 PCR Nasal Enterovir/Rhinovir PCR Nasal Influenza B PCR Nasal Influenza A PCR Nasal Parainfluen 1 PCR Nasal Parainfluen 2 PCR Nasal Parainfluen 3 PCR Nasal Parainfluen 4 PCR Nasal RSV (PCR) Nasal B.pertussis DNA PCR Nasal C.pneumoniae (PCR) Graham Human Metapneumo PCR Nasal M.pneumoniae (PCR) Nasal SARS-CoV-2 (PCR) Blood Type Blood Type Recheck Antibody Screen 04/15/23 04/15/23 04/15/23 Range/Units 16:06 15:45 12:10 WBC 14.8 H (4.8-10.8) x10^3/uL RBC 2.37 L (4.70-6.10) 10^6/uL Hgb 8.6 L (14.0-18.0) g/dL Hct 25.9 L (42.0-52.0) % MCV 109.3 H (80.0-94.0) fL MCH 36.3 H (27.0-31.0) pg MCHC 33.2 (32.0-36.0) g/dL RDW 13.9 (12.0-15.0) % Plt Count 207 (130-450) 10^3/uL MPV 9.2 (7.4-11.4) fL Neut # (Auto) (1.5-6.6) 10^3/uL Lymph # (Auto) (1.5-3.5) 10^3/uL [place] # (Auto) (0.0-1.0) 10^3/uL Eos # (Auto) (0.0-0.7) 10^3/uL Baso # (Auto) (0.0-0.1) 10^3/uL Absolute Nucleated RBC x10^3/uL Nucleated RBC % /100WBC Manual Slide Review WBC Morphology (NORMAL) Platelet Estimate (NORMAL) Platelet Morphology (NORMAL) RBC Morph Micro Appear (NORMAL) Bld Gas Analysis Time 1555 Sample Site RIGHT RADIAL ABG pH 7.44 (7.35-7.45) ABG pCO2 34 (34-45) mmHg ABG pO2 64 L (80-100) mmHg ABG HCO3 22.3 (22.0-26.0) mmol/L ABG Total CO2 23.4 (21.0-29.0) MMOL/L ABG O2 Saturation 92 L (94-98) % ABG Base Excess -1.5 (-2.0-3.0) mmol/L J[place]quin Test POSITIVE Room Air YES Sodium (135-145) mmol/L Potassium (3.5-4.5) mmol/L Chloride (101-111) mmol/L Carbon Dioxide (21-32) mmol/L Anion Gap (6-13) BUN (6-20) mg/dL Creatinine (0.6-1.3) mg/dL Estimated GFR (MDRD) (>89) Glucose (74-104) mg/dL Calcium (8.5-10.3) mg/dL B-Natriuretic Peptide (5-100) pg/mL Carcinoembryonic Ag ng/mL Free PSA (0.16-2.81) ng/mL % Free PSA Total PSA (0.000-2.000) ng/mL Nasal Adenovirus (PCR) Nasal B. parapertussis DNA (PCR) Nasal Coronavir 229E PCR Nasal Coronavir HKU1 PCR Nasal Coronavir NL63 PCR Nasal Coronavir OC43 PCR Nasal Enterovir/Rhinovir PCR Nasal Influenza B PCR Nasal Influenza A PCR Nasal Parainfluen 1 PCR Nasal Parainfluen 2 PCR Nasal Parainfluen 3 PCR Nasal Parainfluen 4 PCR Nasal RSV (PCR) Nasal B.pertussis DNA PCR Nasal C.pneumoniae (PCR) Graham Human Metapneumo PCR Nasal M.pneumoniae (PCR) Nasal SARS-CoV-2 (PCR) Blood Type Blood Type Recheck O POSITIVE Antibody Screen 04/15/23 04/15/23 04/15/23 Range/Units 12:10 10:58 10:38 WBC (4.8-10.8) x10^3/uL RBC (4.70-6.10) 10^6/uL Hgb 9.3 L (14.0-18.0) g/dL Hct 28.2 L (42.0-52.0) % MCV (80.0-94.0) fL MCH (27.0-31.0) pg MCHC (32.0-36.0) g/dL RDW (12.0-15.0) % Plt Count (130-450) 10^3/uL MPV (7.4-11.4) fL Neut # (Auto) (1.5-6.6) 10^3/uL Lymph # (Auto) (1.5-3.5) 10^3/uL [place] # (Auto) (0.0-1.0) 10^3/uL Eos # (Auto) (0.0-0.7) 10^3/uL Baso # (Auto) (0.0-0.1) 10^3/uL Absolute Nucleated RBC x10^3/uL Nucleated RBC % /100WBC Manual Slide Review WBC Morphology (NORMAL) Platelet Estimate (NORMAL) Platelet Morphology (NORMAL) RBC Morph Micro Appear (NORMAL) Bld Gas Analysis Time Sample Site ABG pH (7.35-7.45) ABG pCO2 (34-45) mmHg ABG pO2 (80-100) mmHg ABG HCO3 (22.0-26.0) mmol/L ABG Total CO2 (21.0-29.0) MMOL/L ABG O2 Saturation (94-98) % ABG Base Excess (-2.0-3.0) mmol/L J[place]quin Test Room Air Sodium (135-145) mmol/L Potassium (3.5-4.5) mmol/L Chloride (101-111) mmol/L Carbon Dioxide (21-32) mmol/L Anion Gap (6-13) BUN (6-20) mg/dL Creatinine (0.6-1.3) mg/dL Estimated GFR (MDRD) (>89) Glucose (74-104) mg/dL Calcium (8.5-10.3) mg/dL B-Natriuretic Peptide (5-100) pg/mL Carcinoembryonic Ag ng/mL Free PSA (0.16-2.81) ng/mL % Free PSA Total PSA (0.000-2.000) ng/mL Nasal Adenovirus (PCR) NOT DETECTED Nasal B. parapertussis DNA (PCR) NOT DETECTED Nasal Coronavir 229E PCR NOT DETECTED Nasal Coronavir HKU1 PCR NOT DETECTED Nasal Coronavir NL63 PCR NOT DETECTED Nasal Coronavir OC43 PCR NOT DETECTED Nasal Enterovir/Rhinovir PCR NOT DETECTED Nasal Influenza B PCR NOT DETECTED Nasal Influenza A PCR NOT DETECTED Nasal Parainfluen 1 PCR NOT DETECTED Nasal Parainfluen 2 PCR NOT DETECTED Nasal Parainfluen 3 PCR NOT DETECTED Nasal Parainfluen 4 PCR NOT DETECTED Nasal RSV (PCR) NOT DETECTED Nasal B.pertussis DNA PCR NOT DETECTED Nasal C.pneumoniae (PCR) NOT DETECTED Graham Human Metapneumo PCR NOT DETECTED Nasal M.pneumoniae (PCR) NOT DETECTED Nasal SARS-CoV-2 (PCR) NOT DETECTED Blood Type O POSITIVE Blood Type Recheck Antibody Screen NEGATIVE 04/15/23 04/15/23 04/15/23 Range/Units 10:16 10:16 10:16 WBC (4.8-10.8) x10^3/uL RBC (4.70-6.10) 10^6/uL Hgb (14.0-18.0) g/dL Hct (42.0-52.0) % MCV (80.0-94.0) fL MCH (27.0-31.0) pg MCHC (32.0-36.0) g/dL RDW (12.0-15.0) % Plt Count (130-450) 10^3/uL MPV (7.4-11.4) fL Neut # (Auto) (1.5-6.6) 10^3/uL Lymph # (Auto) (1.5-3.5) 10^3/uL [place] # (Auto) (0.0-1.0) 10^3/uL Eos # (Auto) (0.0-0.7) 10^3/uL Baso # (Auto) (0.0-0.1) 10^3/uL Absolute Nucleated RBC x10^3/uL Nucleated RBC % /100WBC Manual Slide Review WBC Morphology (NORMAL) Platelet Estimate (NORMAL) Platelet Morphology (NORMAL) RBC Morph Micro Appear (NORMAL) Bld Gas Analysis Time Sample Site ABG pH (7.35-7.45) ABG pCO2 (34-45) mmHg ABG pO2 (80-100) mmHg ABG HCO3 (22.0-26.0) mmol/L ABG Total CO2 (21.0-29.0) MMOL/L ABG O2 Saturation (94-98) % ABG Base Excess (-2.0-3.0) mmol/L J[place]quin Test Room Air Sodium (135-145) mmol/L Potassium (3.5-4.5) mmol/L Chloride (101-111) mmol/L Carbon Dioxide (21-32) mmol/L Anion Gap (6-13) BUN (6-20) mg/dL Creatinine (0.6-1.3) mg/dL Estimated GFR (MDRD) (>89) Glucose (74-104) mg/dL Calcium (8.5-10.3) mg/dL B-Natriuretic Peptide 82 (5-100) pg/mL Carcinoembryonic Ag 32.5 ng/mL Free PSA > 176.000 H (0.16-2.81) ng/mL % Free PSA TNP Total PSA 1240.000 H (0.000-2.000) ng/mL Nasal Adenovirus (PCR) Nasal B. parapertussis DNA (PCR) Nasal Coronavir 229E PCR Nasal Coronavir HKU1 PCR Nasal Coronavir NL63 PCR Nasal Coronavir OC43 PCR Nasal Enterovir/Rhinovir PCR Nasal Influenza B PCR Nasal Influenza A PCR Nasal Parainfluen 1 PCR Nasal Parainfluen 2 PCR Nasal Parainfluen 3 PCR Nasal Parainfluen 4 PCR Nasal RSV (PCR) Nasal B.pertussis DNA PCR Nasal C.pneumoniae (PCR) Graham Human Metapneumo PCR Nasal M.pneumoniae (PCR) Nasal SARS-CoV-2 (PCR) Blood Type Blood Type Recheck Antibody Screen ABX Reporting Has patient been on IV antibiotics over the past 48 hours?: Yes Assessment/Plan - Problem List (1) Melena Impression: (1) Melena Conclusion/Plan: No esophageal varices in the face of alcohol abuse. Distal esophagus with changes that indicate he may have bled from there. Not actively bleeding at this time. He does have a hiatal hernia. Plan: Change to inpatient status Increase Protonix from daily to twice daily Advised patient that he can no longer drink, and to avoid nonsteroidals (2) Acute blood loss anemia Conclusion/Plan: I am monitoring need for transfusion. Laboratory Tests 04/15/23 04/15/23 04/15/23 10:16 12:10 16:06 Hgb 10.1 L 9.3 L 8.6 L 04/15/23 04/16/23 22:10 04:57 Hgb 8.3 L 7.9 L I will change Protonix to 40 mg p.o. twice daily. He will need to do this for a month. Start a regular diet I will change the serial hemogram frequency from every 6 to every 12. There is no fresh bleeding in his stomach and there is old blood in his bowel. If his hemoglobin stays stable between today and tomorrow, and he is eating food, I may discharge him depending on his alcohol withdrawal status. (3) Enlarged prostate Conclusion/Plan: Both the patient and his son state that he has no history of prostate cancer. Yet CT confirms a large prostate. He has a chronic indwelling Lopez catheter. I checked a PSA and his total PSA is 1240. Free PSA is greater than 176. CEA is 32.5. He has multiple bony sclerotic lesions compatible with diffuse metastatic disease. He has a broken rib. And he has possible tumor necrosis in the left upper lobe. Putting it altogether my suspicion is that of metastatic prostate cancer. As I spoke to him during his advance care planning conversation. He reluctantly admits that he suspected this. "I am 88 years old, what did you expect". Plan: I have asked [facility] to send me a copy of the admission history and physical and discharge summary from a year ago where he was hospitalized for a UTI. That is when he ended up with a chronic indwelling Lopez catheter. The son describes some type of biopsy procedure of the lung and I am hoping the discharge summary will give me some information there. I have shared my thought process with both the son and the patient. They are both shocked. They feel like they have been completely sideswipe. They never saw this coming. As of this morning, the records have not arrived. I will ask our health [employer]original community council member to reask for those records. In any case, the patient will need to follow- up with his outpatient primary care provider, Dr. Derek Henao, from there he needs to be referred for biopsy and then options for treatment should be discussed. His cancer appears to have metastasized to bony areas. Including a rib. He also has fallen recently. The rib fracture is really bothering him. I have ordered morphine 2 mg every 4 hours as needed because Tylenol was not helping. I needed something quickly before he went to the OR. And he will not be allowed to take nonsteroidals. (4) Chronic indwelling Lopez catheter Conclusion/Plan: [facility] [place] get changed once a month. He sees Dr. Derek Henao. The leg bag is very, very, very foul-smelling. We will provide him with a new 1 and he has already had his Lopez changed out in the ER. I have also asked for records from [facility] to be sent to me to include admission history and physical and discharge summary from a year ago However he did not have a UA submitted. White cell count is elevated. He was 17 on admission, and 13.2 today. No fever.His urine is red in his Lopez bag. I ordered a Urinalysis and it has proteinuria, large amount of occult blood, moderate leukocyte Estrace, 11-25 red cells, 11-25 white cells, few squamous cells, and many bacteria. Plan: I ordered Rocephin 1 gram daily and transition to po when WBc normal (5) Do not resuscitate status Conclusion/Plan: I asked the patient that if his heart were to stop or his lungs were to stop, did he want me to do all aggressive measures to keep him alive? Did he want me to intubate him and support him with a breathing machine and did he want me to do chest compressions? His answer was immediate and a No. He does not want to be resuscitated. But if he needs antibiotics or blood products or surgery he would like to be considered for those if they could improve the quality of his life. Plan: I will have him sign a POLST form today and put that on our EMR. (6) COPD (chronic obstructive pulmonary disease) Conclusion/Plan: He has a widened AP diameter. Is a smoker. Had a prolonged and exhalation phase on exam and today has new wheezing. He has chronic short of breath and tachypnea. . On the evening of admission, I was concerned about the tachypnea and the use of abdominal muscles to breathe. I ordered a blood gas and his pH is 7.435, PCO2 34, PO2 64.1. He is on room air. No acidosis and mild alkalosis. PO2 is greater than 60 so does not need oxygen. I was afraid that ayla chisholm was getting hypercapnic and that is why the sleepiness. He tells me he is just exhausted. He is already on DuoNeb as needed. I will add Solu-Medrol 40 mg IV push every 8 hours. Qualifiers: COPD type: unspecified COPD Qualified Code(s): J44.9 - Chronic obstructive pulmonary disease, unspecified (7) Macrocytosis Conclusion/Plan: I do not have any old records to see if his anemia is old. How long is his macrocytosis been present? But with wine stains on his lips, and an MCV of 108, and his stated history of an alcohol level of 40 today, with a past history of abuse, I have to suspect current alcohol abuse. I asked the patient point blank if he drank too much and he said no. But he was very cagey about how much he did drink and really could not give me a direct answer. I asked him to be clear with me because I worry about alcohol withdrawal. He said he is never gone through withdrawal. And it should not be a worry during this admission. However his son gave me a different story. He is very irritated today. Did not want to do the endoscopy and finally did it. Now this afternoon we are all talking too much and he wants to be left alone. But no tachycardia, sweats, tremors, hallucinations. Plan: Banana bag Librium 10 mg p.o. 4 times daily CIWA protocol (8) Hyperkalemia Conclusion/Plan: Potassium is 4.2 today (9) Generalized weakness I will have PT and OT see him tomorrow. Assess if this patient is strong enough to go home with home health RN/PT. Or will he need to be in temporary rehab at a facility. He raises his eyebrows when I see them. He tells me he is not going to any facility. I was very noncommittal and said we will just wait for physical therapy to give me an assessment tomorrow
[2023-04-16] MEDS: cefTRIAXone 2 GM in SODIUM CHLORIDE 0.9% MINIBAG 100 ML IV SCH (11:28)
[2023-04-16] MEDS: chlordiazePOXIDE 5 MG CAPSULE PO SCH ×3 (11:28→23:38)
[2023-04-16 11:42] LABS: BILIRUBIN,URINE NEGATIVE (NEGATIVE); GLUCOSE, URINE (UA) NEGATIVE (NEGATIVE); KETONES,URINE (UA) NEGATIVE (NEGATIVE); LEUKOCYTE ESTERASE, URINE MODERATE (NEGATIVE); NITRITE,URINE NEGATIVE (NEGATIVE); OCCULT BLOOD,URINE LARGE (NEGATIVE); PH,URINE 6.5 PH (5.0-7.5); PROTEIN,URINE 30 mg/dL (NEGATIVE); UROBILINOGEN,URINE 0.2 (NORMAL) E.U./dL (NORMAL)
[2023-04-16 11:51] LABS: BACTERIA,URINE Many /HPF (None Seen); CLARITY,URINE CLOUDY (CLEAR); SQUAMOUS EPITHELIAL CELL,UR FEW Squamous (<= Few)
[2023-04-16] MEDS: NICOTINE 14 MG PATCH TOP SCH (14:38)
--- NOTE | 2023-04-16 15:54 | ADVANCE CARE PLANNING NOTE ---
Advance Care Planning - Planning Encounter Date: 04/16/23 Time: 13:00 Purpose: Establish care goals with possibility of prostate cancer that is metastatic Parties in Attendance: Patient, his daughter Linn, and hospitalist Decisional Capacity of the Patient: Alert and oriented to person, place, time and situation. 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 He was hospitalized a year ago for UTI and urinary retention. He was told that he needed a prostate biopsy and a TURP. He declined both. He reluctantly shares that he pretty much thought it was prostate cancer but did not really want to do anything about it. The year has now gone by. He has had a relatively stable status with regards to mobility, diet. However he has been drinking too much. Has had a few falls. 3 in the last couple of months. Right rib cage has been "popping". And now with melena. CT scan done to evaluate bladder shows him to have diffuse osseous metastatic disease. Broken rib. A large prostate. PSA is 1240. He now has blood in the Lopez catheter - Encounter Subjective/Patient's Story: Born in [place]. Ended up at [facility] because his dad was in the [employer]. 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 Started smoking at the age of 18 and smoked until the age of 62. Sometimes 2 packs/day. Does not feel he has an alcohol problem. But his son Edy tells me that dad drank very heavily when the patient's 5 years ago. Was drinking up to 8 maybe 10 glasses of wine a day. Would get inebriated enough to fall down. With the rib fracture and a fall and embarrassment where he had to call his son to pick him up off the floor, the patient cut back on his drinking about 2 years ago. Now down to about 4 glasses of wine a day. Patient stated he is fallen about 3 times in the last few weeks. Has had painful right rib cage with "popping" in that time. A year ago he was hospitalized for urinary retention. He has had a chronic indwelling Lopez catheter since then. He was told that he needed a TURP and biopsy. But he just did not want to do it. He was feeling like surgery would kill him and he just wanted to see how he would feel if he ran time out. He feels that he is done well. It is only been the last couple of months that he has noticed something wrong. He still drives once or twice a month. Gets himself to his doctor's office on the [employer]. Gets his Lopez changed once a month. Bathes himself, feeds himself. One of his sons lives in a trailer nearby. He says that his son may have autism. On admission the patient stated he wanted to be DO NOT RESUSCITATE. He would like to fill out a POLST form to make sure that I follow through on that. He states that he does not have a DURABLE POWER OF UNCLAIMED PROPERTY MANAGER. His daughter asked if she could leave the room because she wanted him to make this decision on his own. When I discussed if he wanted a brother, in-law, or child to be his DPOA he requested that his daughter Linn be the DPOA. With regards to the POLST form, I reiterated his request. He had expressed his request to be DO NOT RESUSCITATE. He still wants to be treated. Still wants to discuss options for treatment. But if he were to after we have exhausted our treatment measures, and he does not have a pulse or pressure, DO NOT RESUSCITATE and DO NOT INTUBATE. He is very fatalistic about this new diagnosis. He does not have much hope that he will survive this. But he does want to discuss getting a work-up, and that includes a biopsy. And he would like to see a cancer specialist to see what his options are. Objective/Medical Story: 88-year-old male who lives in his own home after the of his 5 years ago. Medical problems include peptic ulcer disease in his 40s when he was transfused 5 units. Alcoholism with alcohol abuse in the last 5 years. Remote smoker of 2 packs/day. Benign prostatic hypertrophy with chronic indwelling Lopez catheter for urinary retention. He most likely has undiagnosed COPD according to his exam and wheezing during the stay. He presented as weakness and fatigue getting worse over the last couple of weeks. Stool started turning black a few days ago. Increasing in frequency. Then 2 days ago became incontinent of stool. Finally so weak that he almost could not get off the toilet so son called and brought him into ER. We have diagnosed him as an upper GI bleed. Endoscopy confirms hiatal hernia with the stomach in his chest. Probable reflux into the esophagus giving erosions. But no varices. No stomach ulcers. He has not required blood transfusions. Will be started on a proton pump inhibitor. He is getting increasingly irritated as the admission goes on. I do worry that he may be having early or mild alcohol withdrawal. He is on a banana bag. I will be starting him on Librium. Bony pain is moderate to severe. Tylenol is not working, and oxycodone was helping but not taking the pain away. Son was giving him oxycodone at home in the last week. As such I am starting morphine as well. Other problem identified is that of a UTI. He is started on antibiotics today. Goals of Care: He does not know what his goals of care are yet. He just knows he wants to be DO NOT RESUSCITATE. He would like to discuss his diagnosis and prognosis with oncology before making any decisions. He does note that he never wants to be placed in a nursing facility. He wants to at home when the time comes. Plan: 1. POLST form filled out. Patient is DO NOT RESUSCITATE. Selective tr eatments. 2. Although he has verbally told me that he wants his daughter Linn to be the DPOA, he really does have to fill out some paperwork. I will have social work work with him tomorrow morning to sign that paperwork. 3. I have advised him that a DPOA is not the same thing is a POA. He will need to decide who will work on his finances for him when he cannot do them on his own. He thinks he may be using his son Michael and will let us know later. Or will take care of it when he leaves the hospital. Code Status: Do Not Attempt Resuscitation Time spent on advance care plannin minutes
[2023-04-16] MEDS ORDERED: PANTOPRAZOLE 40 MG VIAL IVP SCH (21:00)
[2023-04-16] MEDS: TAMSULOSIN 0.4 MG CAPSULE PO SCH (21:41)
[2023-04-16] MEDS: PANTOPRAZOLE 40 MG TABLET PO SCH (21:42)
[2023-04-16] MEDS: SODIUM CHLORIDE FLUSH 0.9% 10 ML SYRINGE IVP PRN (21:43)
[2023-04-16] MEDS: SODIUM CHLORIDE 0.65% NASAL SPRAY NAS PRN (22:27)
[2023-04-17 05:34] LABS: HCT - HEMATOCRIT 23.9 % (42.0-52.0); HGB - HEMOGLOBIN 7.8 g/dL (14.0-18.0); LYMPHOCYTES # (AUTO) 0.4 10^3/uL (1.5-3.5); LYMPHOCYTES % (AUTO) 2.9 %; MEAN CORPUSCULAR HEMOGLOBIN 36.3 pg (27.0-31.0); MEAN CORPUSCULAR HGB CONC 32.6 g/dL (32.0-36.0); MEAN CORPUSCULAR VOLUME 111.2 fL (80.0-94.0); MEAN PLATELET VOLUME 9.5 fL (7.4-11.4); MONOCYTES # (AUTO) 0.8 10^3/uL (0.0-1.0); MONOCYTES % (AUTO) 6.2 %; NEUTROPHILS # (AUTO) 11.2 10^3/uL (1.5-6.6); NEUTROPHILS % (AUTO) 89.2 %; NRBC ABSOLUTE COUNT (AUTO) 0.04 x10^3/uL; NUCLEATED RED BLOOD CELLS AUTO 0.3 /100WBC; PLT - PLATELET COUNT 205 10^3/uL (130-450); RED BLOOD COUNT 2.15 10^6/uL (4.70-6.10); RED CELL DISTRIBUTION WIDTH 14.4 % (12.0-15.0); WHITE BLOOD COUNT 12.6 x10^3/uL (4.8-10.8)
[2023-04-17] MEDS: methylPREDNISolone SUCCINATE 40 MG/ML VIAL IVP SCH ×3 (05:41→21:37)
[2023-04-17] MEDS: chlordiazePOXIDE 5 MG CAPSULE PO SCH ×2 (05:41→12:08)
[2023-04-17 05:49] LABS: CALCIUM 9.6 mg/dL (8.5-10.3); CREATININE 0.8 mg/dL (0.6-1.3); POTASSIUM 4.2 mmol/L (3.5-4.5)
[2023-04-17] MEDS: NICOTINE 14 MG PATCH TOP SCH (08:56)
[2023-04-17] MEDS: PANTOPRAZOLE 40 MG TABLET PO SCH ×2 (08:57→21:36)
[2023-04-17] MEDS: cefTRIAXone 2 GM in SODIUM CHLORIDE 0.9% MINIBAG 100 ML IV SCH (09:08)
[2023-04-17] MEDS: METOPROLOL TARTRATE 25 MG TABLET PO SCH ×2 (09:11→21:37)
[2023-04-17] MEDS: SODIUM CHLORIDE FLUSH 0.9% 10 ML SYRINGE IVP SCH ×2 (12:10→21:37)
[2023-04-17] MEDS: SODIUM CHLORIDE FLUSH 0.9% 10 ML SYRINGE IVP PRN (14:09)
--- NOTE | 2023-04-17 17:12 | PROVIDER PROGRESS NOTE ---
Subjective - Prog Note Date Prog Note Date: 04/17/23 Prog Note Time: 17:21 - Subjective Subjective: He is very sleepy today. While he wakes up and will speak to me, he drifts right back to sleep within moments. The only new thing I have done is started h im on Librium for possible early withdrawal yesterday. And he is also on morphine for pain from his ribs. Daughter was able to come in this morning and spend some time with him but she has a doctor's appointment in [place] and needs to get going. Before she left I asked her to please make sure Michael, the older brother, will speak to me about helping what to do for disposition. Current Medications - Current Medications Current Medications: Active Medications Acetaminophen (Acetaminophen 325 Mg Tablet) 650 mg PO Q4HR PRN PRN Reason: Pain 1 to 4, or Fever Last Admin: 04/15/23 12:53 Dose: 650 mg Albuterol/Ipratropium (Ipratropium/Albuterol 3 Ml Neb) 3 ml INH RTQID PRN PRN Reason: Shortness of Air/Wheezing Last Admin: 04/16/23 08:50 Dose: 3 ml Ceftriaxone Sodium 2 gm/ (Sodium Chloride) 100 mls @ 200 mls/hr IV DAILY [facility] Last Infusion: 04/17/23 11:06 Dose: Infused Lorazepam (Lorazepam 2 Mg/Ml Vial) 1 mg IVP Q30M PRN; Protocol PRN Reason: CIWA >8 Methylprednisolone (Methylprednisolone Succinate 40 Mg/Ml Vial) 40 mg IVP TID [facility] Last Admin: 04/17/23 14:08 Dose: 40 mg Metoprolol Tartrate (Metoprolol Tartrate 25 Mg Tablet) 25 mg PO BID [facility] Last Admin: 04/17/23 09:11 Dose: 25 mg Multi-Ingredient Ointment (Zinc Oxide 20% Oint 30 Gm Tube) 1 applic TOP PRN PRN PRN Reason: Skin Care Last Admin: 04/16/23 22:22 Dose: 1 bag Nicotine (Nicotine 14 Mg Patch) 1 patch TOP DAILY [facility] Last Admin: 04/17/23 08:56 Dose: 1 patch Ondansetron HCl (Ondansetron Odt 4 Mg Tablet) 4 mg TL Q6HR PRN PRN Reason: Nausea / Vomiting Ondansetron HCl (Ondansetron 4 Mg/2 Ml Vial) 4 mg IVP Q6HR PRN PRN Reason: Nausea / Vomiting Oxycodone HCl (Oxycodone 5 Mg Tablet) 5 mg PO Q4HR PRN PRN Reason: Pain 5 to 7 Last Admin: 04/17/23 17:17 Dose: 5 mg Pantoprazole Sodium (Pantoprazole 40 Mg Tablet) 40 mg PO BID [facility] Last Admin: 04/17/23 08:57 Dose: 40 mg Sodium Chloride (Sodium Chloride Flush 0.9% 10 Ml Syringe) 10 ml IVP PRN PRN PRN Reason: NEEDED PER PROVIDER ORDERS Last Admin: 04/17/23 14:09 Dose: 10 ml Sodium Chloride (Sodium Chloride Flush 0.9% 10 Ml Syringe) 10 ml IVP 0100,0900,1700 [facility] Last Admin: 04/17/23 12:10 Dose: 10 ml Sodium Chloride (Sodium Chloride 0.65% Nasal [place]) 2 sprays TOMMY Q4HR PRN PRN Reason: Nasal Congestion Last Admin: 04/16/23 22:27 Dose: 1 spr Tamsulosin HCl (Tamsulosin 0.4 Mg Capsule) 0.4 mg PO QPM [facility] Last Admin: 04/16/23 21:41 Dose: 0.4 mg Metoprolol Succinate 100 mg PO DAILY 04/15/23 Tamsulosin [Flomax] 0.4 mg PO DAILY 04/15/23 Objective - Vital Signs/Intake & Output Reviewed Vital Signs: Yes Vital Signs: Vital Signs x48h Temp Pulse Pulse Pulse Pulse Resp BP 04/17/23 15:35 36.4 C L 87 24 04/17/23 11:23 99 104 H 97 04/17/23 09:11 105/40 L BP BP BP BP Pulse Ox Pulse Ox Pulse Ox 04/17/23 15:35 106/55 L 93 04/17/23 11:23 110/54 L 121/64 109/59 L 90 L 92 04/17/23 09:11 Pulse Ox 04/17/23 15:35 04/17/23 11:23 93 04/17/23 09:11 Intake & Output: Intake & Output 04/14/23 04/15/23 04/16/23 04/17/23 23:59 23:59 23:59 23:59 Intake Total 4830 1265.2 1140 Output Total 1475 1600 1225 Balance 3355 -334.8 -85 - Objective General Appearance: positive: Mild distress (Breathing is slightly labored and he has to use his abdominal wall muscles. Snoring.), Lethargic Eyes Bilateral: positive: PERRL, EOMI ENT: positive: No signs of dehydration Neck: positive: No JVD. negative: Stiff neck Respiratory: positive: Other (But breathing a little fast, and prefers to set). negative: Wheezes, Rales, Rhonchi Cardiovascular: positive: Regular rate & rhythm Abdomen: positive: Non-tender, No organomegaly, Nml bowel sounds, No distention Skin: positive: Warm, Dry Extremities: positive: Full ROM, No pedal edema Neurologic/Psychiatric: positive: CN's nml (2-12), Motor nml (Generalized weakness eating two-person contact-guard assist), Disoriented to time - Lab Results Fish Bones: 04/17/23 05:07 04/17/23 05:07 Other Labs: Lab Results x24hrs 04/17/23 04/17/23 04/17/23 Range/Units 05:07 05:07 05:07 WBC 12.6 H (4.8-10.8) x10^3/uL RBC 2.15 L (4.70-6.10) 10^6/uL Hgb 7.8 L (14.0-18.0) g/dL Hct 23.9 L (42.0-52.0) % MCV 111.2 H (80.0-94.0) fL MCH 36.3 H (27.0-31.0) pg MCHC 32.6 (32.0-36.0) g/dL RDW 14.4 (12.0-15.0) % Plt Count 205 (130-450) 10^3/uL MPV 9.5 (7.4-11.4) fL Neut # (Auto) 11.2 H (1.5-6.6) 10^3/uL Lymph # (Auto) 0.4 L (1.5-3.5) 10^3/uL [place] # (Auto) 0.8 (0.0-1.0) 10^3/uL Eos # (Auto) 0.0 (0.0-0.7) 10^3/uL Baso # (Auto) 0.0 (0.0-0.1) 10^3/uL Absolute Nucleated RBC 0.04 x10^3/uL Nucleated RBC % 0.3 /100WBC Sodium 135 (135-145) mmol/L Potassium 4.2 (3.5-4.5) mmol/L Chloride 107 (101-111) mmol/L Carbon Dioxide 24 (21-32) mmol/L Anion Gap 4.0 L (6-13) BUN 41 H (6-20) mg/dL Creatinine 0.8 (0.6-1.3) mg/dL Estimated GFR (MDRD) 92 (>89) Glucose 143 H (74-104) mg/dL Calcium 9.6 (8.5-10.3) mg/dL Vitamin B12 525 (180-914) pg/mL Folate 22.7 (5.90 - >24.8) ng/mL ABX Reporting Has patient been on IV antibiotics over the past 48 hours?: Yes Assessment/Plan - Problem List (1) Melena Impression: Melena with presumed GI bleed was the reason this gentleman was admitted.Over the last few days a clear history has come together. He lives in his own home. 1 son lives next door in his trailer. The patient is an alcohol abuser. 5 years ago began drinking at the of his and was probably drinking 8 to 10 glasses of wine. 2 years ago cut down to about 4 or 5 glasses of wine. He has been failing with regards to no appetite. Prefers to drink is 1, and likes his tomato juice but no real solid food. Does not really note any weight loss. Recently, skeletal pain has become severe. Son was giving him his oxycodone that he had at home. He then began having melena. EGD was done. No esophageal varices in the face of alcohol abuse. Distal esophagus with changes that indicate he may have bled from there. Not actively bleeding at this time. He does have a hiatal hernia.Initial hemoglobin was 10.1. He dropped to the sevens yesterday. Today was 7.9, today 7.8. So his blood loss appears to have stabilized. He is being treated with Protonix twice daily. I spoken to his daughter at length yesterday and today about the need to make sure that he never takes nonsteroidal therapy. Plan: I think from a GI perspective, he is now considered medically stable. His other issues of generalized weakness, skeletal pain from osseous metastatic disease, and presumed prostate cancer have come to the front of the line with regards to what we need to do (2) Acute blood loss anemia Conclusion/Plan: I am monitoring need for transfusion. Laboratory Tests 04/15/23 04/15/23 04/15/23 10:16 12:10 16:06 Hgb 10.1 L 9.3 L 8.6 L 04/15/23 04/16/23 22:10 04:57 Hgb 8.3 L 7.9 L Laboratory Tests 04/17/23 05:07 Hgb 7.8 L On Protonix to 40 mg p.o. twice daily. He will need to do this for a month. Not much of an appetite. We have started him on a regular diet but he is not eating more than a few bites Daily hemogram. I have opened up the issue of discharge to his daughter who is now his DPOA. She will need to discuss this with her brother Michael and Duncan. She is hoping that Michael will meet with me this afternoon to guide the family conversation. (3) Enlarged prostate Conclusion/Plan: Both the patient and his son Duncan state that he has no history of prostate cancer. Yet CT confirms a large prostate. He has a chronic indwelling Lopez catheter. I checked a PSA and his total PSA is 1240. Free PSA is greater than 176. CEA is 32.5. He has multiple bony sclerotic lesions compatible with diffuse metastatic disease. He has a broken rib. And he has possible tumor necrosis in the left upper lobe. Putting it altogether my suspicion is that of metastatic prostate cancer. As I spoke to him during his advance care planning conversation. He reluctantly admits that he suspected this. "I am 88 years old, what did you expect". Plan: I have asked [facility] to send me a copy of the admission history and physical and discharge summary from a year ago where he was hospitalized for a UTI. That is when he ended up with a chronic indwelling Lopez catheter. The son describes some type of biopsy procedure of the lung and I am hoping the discharge summary will give me some information there. I have shared my thought process with both the son and the patient. They are both shocked. They feel like they have been completely sideswipe. They never saw this coming. As of 04/16, the records have not arrived. I asked health community relations officer to reask for those records yesterday and today. In any case, the patient will need to follow-up with his outpatient primary care provider, Dr. Derek Henao, from there he needs to be referred for biopsy and then options for treatment should be discussed. His cancer appears to have metastasized to bony areas. Including a rib. He also has fallen recently. The rib fracture is really bothering him. I had ordered morphine 2 mg every 4 hours as needed because Tylenol was not helping. I needed something quickly before he went to the OR. He was refusing to go to the OR yesterday for the EGD and less his pain was handled.. Because of sedation today, I am stopping the morphine IV. (4) Chronic indwelling Lopez catheter Conclusion/Plan: He reports going to the [facility] to get changed once a month. He sees Dr. Derek Henao. The leg bag is very, very, very foul-smelling. We will provide him with a new 1 and he has already had his Lopez changed out in the ER. I have also asked for records from [facility] to be sent to me to include admission history and physical and discharge summary from a year ago However he did not have a UA submitted. White cell count is elevated. White cell count was 17 on admission. 12.6 today. No fever. His urine is red in his Lopez bag. When I ordered a Urinalysis, it had proteinuria, large amount of occult blood, moderate leukocyte Estrace, 11-25 red cells, 11-25 white cells, few squamous cells, and many bacteria. Plan: Rocephin 1 g daily. Today is day 2/7. When his white cell count is normal, changed to p.o. depending on the sensitivities of the bacteria. Today the preliminary readings are gram-negative omaira and Proteus. (5) Do not resuscitate status Conclusion/Plan: I asked the patient that if his heart were to stop or his lungs were to stop, did he want me to do all aggressive measures to keep him alive? Did he want me to intubate him and support him with a breathing machine and did he want me to do chest compressions? His answer was immediate and a No. He does not want to be resuscitated. But if he needs antibiotics or blood products or surgery he would like to be considered for those if they could improve the quality of his life. This was discussed with his daughter and DPOA yesterday. We reiterated the POLST form again this morning. He is to receive full treatment with blood, transfusion, antibiotics and necessary surgeries. If he wants to be treated for cancer he will be treated. It is only if his heart were to stop and his lungs were to stop that he does not want to be intubated or receive CPR. That was reiterated again this morning when she had a question about the POLST form. (6) COPD (chronic obstructive pulmonary disease) Conclusion/Plan: He has a widened AP diameter. Is a smoker. Had a prolonged and exhalation phase on exam and today has new wheezing. He has chronic short of breath and tachypnea. . On the evening of admission, I was concerned about the tachypnea and the use of abdominal muscles to breathe. I ordered a blood gas and his pH is 7.435, PCO2 34, PO2 64.1. He is on room air. No acidosis and mild alkalosis. PO2 is greater than 60 so does not need oxygen. I was afraid that he was getting hypercapnic and that is why the sleepiness. He tells me he is just exhausted. He is already on DuoNeb as needed. He was sleepy yesterday. This is when I added Librium and morphine. Today continues to be sleepy. I will stop the Librium and morphine. Continue DuoNeb. Qualifiers: COPD type: unspecified COPD Qualified Code(s): J44.9 - Chronic obstructive pulmonary disease, unspecified (7) Macrocytosis Conclusion/Plan: I do not have any old records to see if his anemia is old. How long is his macrocytosis been present? But with wine stains on his lips, and an MCV of 108, and his stated history of an alcohol level of 40 today, with a past history of abuse, I have to suspect current alcohol abuse. I asked the patient point blank if he drank too much and he said no. But he was very cagey about how much he did drink and really could not give me a direct answer. I asked him to be clear with me because I worry about alcohol withdrawal. He said he is never gone through withdrawal. And it should not be a worry during this admission. However his son gave me a different story. He was very irritated 04/16. Did not want to do the endoscopy and finally did it. In the afternoon we are all talking too much and he wanted to be left alone. But no tachycardia, sweats, tremors, hallucinations. I added Librium but it may be too sedated. Plan:CIWA protocol not needed. I will discontinue banana bag and change to p.o. vitamins Discontinue Librium (8) Hyperkalemia Conclusion/Plan: Potassium is 4.2 today (9) Generalized weakness Physical therapy was able to see him. He lives in a multilevel house. 4 steps to get in. 11 steps to the second level. Uses a cane and a front wheel walker occasionally. He is usually independent with these. Today he was very distractible. Forgetful. Was not very motivated to work with PT. Was contact- guard assist for bed mobility, contact-guard assist for transfers. He needed to when he went from sit to stand. And he is min assist with a front wheel walker. Was able to walk 5 feet. They do feel he has generalized weakness and mobility deficits and would benefit from acute PT services during the hospital stay. They also think that he would benefit from postacute services at a [facility]p facility to return to baseline level of function. His daughter states that he would never agree to that. And I said that I so understood that. So I asked her does not mean that the family would like to take him home and they take care of him. She says that she cannot take care of her father. She does not think that Edy would be able to take care of her father. Maybe Michael could. So I asked her to please make sure Michael speaks to me today so we can do discharge planning for dad.
[2023-04-17] MEDS: oxyCODONE 5 MG TABLET PO PRN ×2 (17:17→21:36)
[2023-04-17] MEDS: TAMSULOSIN 0.4 MG CAPSULE PO SCH (21:37)
[2023-04-18] MEDS: SODIUM CHLORIDE FLUSH 0.9% 10 ML SYRINGE IVP SCH ×3 (00:20→16:44)
[2023-04-18] MEDS: oxyCODONE 5 MG TABLET PO PRN ×3 (02:56→21:27)
[2023-04-18] MEDS: BENZOCAINE/MENTHOL LOZENGE MM PRN ×6 (02:56→20:30)
[2023-04-18] MEDS: BENZONATATE 100 MG CAPSULE PO PRN ×3 (04:09→21:27)
[2023-04-18 05:27] LABS: BASOPHILS % (AUTO) 0.1 %; HCT - HEMATOCRIT 24.4 % (42.0-52.0); HGB - HEMOGLOBIN 7.8 g/dL (14.0-18.0); LYMPHOCYTES # (AUTO) 0.4 10^3/uL (1.5-3.5); LYMPHOCYTES % (AUTO) 2.7 %; MEAN CORPUSCULAR HEMOGLOBIN 35.6 pg (27.0-31.0); MEAN CORPUSCULAR VOLUME 111.4 fL (80.0-94.0); MEAN PLATELET VOLUME 9.3 fL (7.4-11.4); MONOCYTES # (AUTO) 1.4 10^3/uL (0.0-1.0); MONOCYTES % (AUTO) 9.9 %; NEUTROPHILS # (AUTO) 12.1 10^3/uL (1.5-6.6); NEUTROPHILS % (AUTO) 85.6 %; NRBC ABSOLUTE COUNT (AUTO) 0.06 x10^3/uL; NUCLEATED RED BLOOD CELLS AUTO 0.4 /100WBC; PLT - PLATELET COUNT 227 10^3/uL (130-450); RED BLOOD COUNT 2.19 10^6/uL (4.70-6.10); RED CELL DISTRIBUTION WIDTH 14.4 % (12.0-15.0); WHITE BLOOD COUNT 14.1 x10^3/uL (4.8-10.8)
[2023-04-18 05:33] LABS: SLIDE REVIEW? Indicated
[2023-04-18 05:41] LABS: CALCIUM 10.1 mg/dL (8.5-10.3); POTASSIUM 4.4 mmol/L (3.5-4.5)
[2023-04-18] MEDS: methylPREDNISolone SUCCINATE 40 MG/ML VIAL IVP SCH ×2 (05:59→17:41)
[2023-04-18 06:07] LABS: PLATELET ESTIMATE, MANUAL NORMAL (130-450,000) (NORMAL)
[2023-04-18] MEDS: NICOTINE 14 MG PATCH TOP SCH (08:07)
[2023-04-18] MEDS: METOPROLOL TARTRATE 25 MG TABLET PO SCH ×2 (08:26→21:23)
[2023-04-18] MEDS: PANTOPRAZOLE 40 MG TABLET PO SCH ×2 (08:26→21:23)
[2023-04-18] MEDS: cefTRIAXone 2 GM in SODIUM CHLORIDE 0.9% MINIBAG 100 ML IV SCH (08:26)
[2023-04-18] MEDS: SODIUM CHLORIDE 0.65% NASAL SPRAY NAS PRN (13:42)
--- NOTE | 2023-04-18 19:42 | PROVIDER PROGRESS NOTE ---
Assessment/Plan - Problem List (1) COPD (chronic obstructive pulmonary disease) Assessment/Plan: He has a widened AP diameter, is a smoker, has a prolonged and exhalation phase and has scattered wheezing. He has chronic short of breath and tachypnea. He was apparently on no inhalers or COPD meds before this admission. Plan: He is already on DuoNeb as needed. Will cont this Cont TID iv Solumedrol Cont Tessalon Namrata Will add Montelukast qpm Qualifiers: COPD type: unspecified COPD Qualified Code(s): J44.9 - Chronic obstructive pulmonary disease, unspecified (2) Generalized weakness PT and OT evaluated him. He lives in a multilevel house, has 4 steps to get in, then 11 steps up to the second level. He uses a cane and a front wheel walker occasionally. He is usually independent with these. They do feel he has generalized weakness and mobility deficits and would benefit from acute PT services and would benefit from postacute services at a [facility] facility to return to baseline level of function. Plan: We are awaiting for arrangements for discharge to an accepting SNF for rehab. (3) Chronic pain His cancer appears to have metastasized to bony areas, including a rib. He also has fallen recently. The rib fracture is really bothering him. He is noticeably splinting. He forgets to ask for pain meds Plan: Will order scheduled Tylenol TID (4) BPH with elevated PSA Conclusion/Plan: Both the patient and his son Duncan stated that he has no history of prostate cancer. Yet CT confirms a large prostate. He has a chronic indwelling Lopez catheter. I checked a PSA and his total PSA is 1240. Free PSA is greater than 176. CEA is 32.5. He has multiple bony sclerotic lesions compatible with diffuse metastatic disease. He has a broken rib. And he has possible tumor necrosis in the left upper lobe of his lung. 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 When the last Hospitalist shared her thought process with both the son and the patient, they were both shocked. They feel like they have been completely sideswipe. They never saw this coming. We have [facility] resords from a year ago where he was hospitalized but the records have not arrived. Plan: The patient will need to have follow-up with his outpatient primary care provider, Dr. Derek Henao, from there he needs to be referred for biopsy and then options for treatment should be discussed. (5) Chronic indwelling Lopez catheter Conclusion/Plan: He reports going to the [facility] clinic to get this changed once a month. He sees Dr. Derek Henao. The leg bag is very, very, very foul-smelling. Plan: We will provide him with a new leg bag and he has already had his Lopez changed out in the ER. (6) CAUTI Conclusion/Plan: Urinalysis had proteinuria, large amount of occult blood, moderate leukocyte Estrace, 11-25 red cells, 11-25 white cells, few squamous cells, and many bacteria. The culture has grown out Proteus and Klebsiella. Ceftriaxone is an appropriate antibiotic for this. Plan: Rocephin iv originally planned for a 7 day course. When his white cell count is normal, change to p.o. depending on the sensitivities of the bacteria. Today WBC 13 He will be discharging to the SNF to take several more days of iv Ceftriaxone, then change to po antibx for another 7 days. 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 He has a broken rib. And he has possible tumor necrosis in the left upper lobe of his lung. 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 When the last Hospitalist shared her thought process with both the son and the patient, they were both shocked. They feel like they have been completely sideswipe. His cancer appears to have metastasized to bony areas, including a rib. Plan: The patient will need to have follow-up with his outpatient primary care provider, Dr. Derek Henao, from there he needs to be referred for biopsy and then options for treatment should be discussed. (8) Melena Melena with presumed GI bleed since he began having melena. EGD was done. No esophageal varices, even with Hx of alcohol abuse. Distal esophagus with changes that indicate he may have bled from there. Not actively bleeding at this time. He does have a hiatal hernia. Initial hemoglobin was 10.1. He dropped to the sevens where it appears to have stabilized. He is being treated with Protonix twice daily. He shoiuld never takes nonsteroidal therapy. Plan: From a GI perspective, he is now considered medically stable. His other issues of generalized weakness, skeletal pain from osseous metastatic disease, and presumed prostate cancer have come to the front of the line with regards to what we need to do (9) Acute blood loss anemia Conclusion/Plan: Plan: On Protonix to 40 mg p.o. twice daily. He will need to stay on this for a month. (10) Alcohol abuse Conclusion/Plan: As per Hx. He said he has never gone through withdrawal. He was on Banana bag earlier this admission, and on a CIWA protocol. Librium has been stopped Plan: CIWA protocol not needed. Cont p.o. vitamins (11) Macrocytosis Conclusion/Plan: This is presumably from alcohol abuse. Plan: Cont MOV and Thiamine - Current Meds Current Meds: Current Medications Generic Name Dose Route Start Last Admin Trade Name Freq PRN Reason Stop Dose Admin Acetaminophen 650 mg 04/15/23 12:34 04/15/23 12:53 Acetaminophen 325 Mg Tablet PO 650 mg Q4HR PRN Administration Pain 1 to 4, or Fever Albuterol/Ipratropium 3 ml 04/16/23 07:56 04/16/23 08:50 Ipratropium/Albuterol 3 Ml Neb INH 3 ml RTQID PRN Administration Shortness of Air/Wheezing Benzonatate 100 mg 04/18/23 04:01 04/18/23 16:44 Benzonatate 100 Mg Capsule PO 100 mg TID PRN Administration Cough Ceftriaxone Sodium 2 gm/ 100 mls @ 200 mls/hr 04/16/23 12:00 04/18/23 09:49 Sodium Chloride IV Infused DAILY MICHELLE Infusion Methylprednisolone 40 mg 04/18/23 18:00 04/18/23 17:41 Methylprednisolone Succinate 40 Mg/Ml Vial IVP 40 mg BID MICHELLE Administration Metoprolol Tartrate 25 mg 04/15/23 21:00 04/18/23 08:26 Metoprolol Tartrate 25 Mg Tablet PO 25 mg BID MICHELLE Administration Multi-Ingredient Ointment 1 applic 04/15/23 16:17 04/16/23 22:22 Zinc Oxide 20% Oint 30 Gm Tube TOP 1 bag PRN PRN Administration Skin Care Nicotine 1 patch 04/16/23 15:00 04/18/23 08:07 Nicotine 14 Mg Patch TOP 1 patch DAILY MICHELLE Administration Oxycodone HCl 5 mg 04/15/23 12:34 04/18/23 16:44 Oxycodone 5 Mg Tablet PO 5 mg Q4HR PRN Administration Pain 5 to 7 Pantoprazole Sodium 40 mg 04/16/23 21:00 04/18/23 08:26 Pantoprazole 40 Mg Tablet PO 40 mg BID MICHELLE Administration Sodium Chloride 10 ml 04/15/23 12:34 04/17/23 14:09 Sodium Chloride Flush 0.9% 10 Ml Syringe IVP 10 ml PRN PRN Administration NEEDED PER PROVIDER ORDERS Sodium Chloride 10 ml 04/15/23 17:00 04/18/23 16:44 Sodium Chloride Flush 0.9% 10 Ml Syringe IVP 10 ml 0100,0900,1700 MICHELLE Administration Sodium Chloride 2 sprays 04/16/23 22:15 04/18/23 13:42 Sodium Chloride 0.65% Nasal [place] TOMMY 2 spr Q4HR PRN Administration Nasal Congestion Tamsulosin HCl 0.4 mg 04/15/23 21:00 04/17/23 21:37 Tamsulosin 0.4 Mg Capsule PO 0.4 mg QPM MICHELLE Administration Throat Lozenges 1 lozenge 04/18/23 02:33 04/18/23 18:49 Benzocaine/Menthol Lozenge MM 1 lozenge Q2HR PRN Administration Throat pain - Lab Result Fish Bone Diagrams: 04/19/23 04:53 04/19/23 04:53 - Additional Planning My Orders: My Active Orders 04/18/23 18:00 methylPREDNISolone SUCCINATE [SOLU-Medrol (40MG VIAL)] 40 mg IVP BID 04/18/23 22:00 Acetaminophen [Tylenol] 650 mg PO TID Subjective - Subjective Patient Reports: Shortness of Breath (with any minimal activity. Also reports being very weak, and is interested in rehab at a SNF.) Objective Vital Signs: Vital Signs - 24 hr 04/17/23 04/17/23 04/18/23 21:37 23:50 07:45 Temperature 36.4 C L 36.5 C Heart Rate [ 89 100 Brachial] Respiratory 24 20 Rate Blood Pressure 109/62 Blood Pressure 108/63 131/82 H [Right Brachial artery] O2 Saturation 92 92 04/18/23 04/18/23 08:26 15:45 Temperature 36.9 C Heart Rate [ 92 Brachial] Respiratory 24 Rate Blood Pressure 131/82 H Blood Pressure 109/61 [Right Brachial artery] O2 Saturation 93 Oxygen O2 Source Room air I&O (Last 24 Hrs): Intake and Output Totals x24h 04/16/23 04/17/23 04/18/23 23:59 23:59 23:59 Intake Total 1265.2 1940 965 Output Total 1600 1600 750 Balance -334.8 340 215 General: Alert, Mild distress (Is SOB while talking), Other (Disheveled) HEENT: Mucous membr. moist/pink, Other (wearing O2 per n.c.) Neuro: Alert, Non Focal Cardiovascular: No murmurs (distant heart sounds due to COPD, increased AP diameter) Respiratory: Other (. No wheezingPoor air movement and shallow breaths) Abdomen: Normal bowel sounds, Soft Extremities: No clubbing, No edema, No tenderness/swelling - Results Results: Laboratory Results WBC 14.1 x10^3/uL (4.8-10.8) H 04/18/23 05:19 RBC 2.19 10^6/uL (4.70-6.10) L 04/18/23 05:19 Hgb 7.8 g/dL (14.0-18.0) L 04/18/23 05:19 Hct 24.4 % (42.0-52.0) L 04/18/23 05:19 MCV 111.4 fL (80.0-94.0) H 04/18/23 05:19 MCH 35.6 pg (27.0-31.0) H 04/18/23 05:19 MCHC 32.0 g/dL (32.0-36.0) 04/18/23 05:19 RDW 14.4 % (12.0-15.0) 04/18/23 05:19 Plt Count 227 10^3/uL (130-450) 04/18/23 05:19 MPV 9.3 fL (7.4-11.4) 04/18/23 05:19 Neut # (Auto) 12.1 10^3/uL (1.5-6.6) H 04/18/23 05:19 Lymph # (Auto) 0.4 10^3/uL (1.5-3.5) L 04/18/23 05:19 [place] # (Auto) 1.4 10^3/uL (0.0-1.0) H 04/18/23 05:19 Eos # (Auto) 0.0 10^3/uL (0.0-0.7) 04/18/23 05:19 Baso # (Auto) 0.0 10^3/uL (0.0-0.1) 04/18/23 05:19 Absolute Nucleated RBC 0.06 x10^3/uL 04/18/23 05:19 Nucleated RBC % 0.4 /100WBC 04/18/23 05:19 Manual Slide Review Indicated 04/18/23 05:19 WBC Morphology NORMAL APPEARANCE (NORMAL) 04/16/23 04:57 Platelet Estimate NORMAL (130-450,000) (NORMAL) 04/18/23 05:19 Platelet Morphology NORMAL APPEARANCE (NORMAL) 04/16/23 04:57 RBC Morph Micro Appear 2+ MACROCYTOSIS (NORMAL) 1+ HYPOCHROMASIA (NORMAL) 04/18/23 05:19 RBC Morph Micro Appear 2+ MACROCYTOSIS (NORMAL) 1+ HYPOCHROMASIA (NORMAL) 04/18/23 05:19 PT 14.0 secs (9.9-12.6) H 04/15/23 10:16 INR 1.3 (0.8-1.2) H 04/15/23 10:16 APTT 28.0 secs (24.9-33.3) 04/15/23 10:16 Bld Gas Analysis Time 1555 04/15/23 15:45 Sample Site RIGHT RADIAL 04/15/23 15:45 ABG pH 7.44 (7.35-7.45) 04/15/23 15:45 ABG pCO2 34 mmHg (34-45) 04/15/23 15:45 ABG pO2 64 mmHg (80-100) L 04/15/23 15:45 ABG HCO3 22.3 mmol/L (22.0-26.0) 04/15/23 15:45 ABG Total CO2 23.4 MMOL/L (21.0-29.0) 04/15/23 15:45 ABG O2 Saturation 92 % (94-98) L 04/15/23 15:45 ABG Base Excess -1.5 mmol/L (-2.0-3.0) 04/15/23 15:45 [place] Test POSITIVE 04/15/23 15:45 Room Air YES 04/15/23 15:45 Sodium 134 mmol/L (135-145) L 04/18/23 05:19 Potassium 4.4 mmol/L (3.5-4.5) 04/18/23 05:19 Chloride 104 mmol/L (101-111) 04/18/23 05:19 Carbon Dioxide 25 mmol/L (21-32) 04/18/23 05:19 Anion Gap 5.0 (6-13) L 04/18/23 05:19 BUN 47 mg/dL (6-20) H 04/18/23 05:19 Creatinine 1.0 mg/dL (0.6-1.3) 04/18/23 05:19 Estimated GFR (MDRD) 71 (>89) L 04/18/23 05:19 Glucose 147 mg/dL (74-104) H 04/18/23 05:19 Calcium 10.1 mg/dL (8.5-10.3) 04/18/23 05:19 Magnesium 1.9 mg/dL (1.7-2.3) 04/15/23 10:16 Total Bilirubin 0.4 mg/dL (0.2-1.0) 04/15/23 10:16 AST 14 IU/L (10-42) 04/15/23 10:16 ALT 8 IU/L (10-60) L 04/15/23 10:16 Alkaline Phosphatase 330 IU/L (42-121) H 04/15/23 10:16 B-Natriuretic Peptide 82 pg/mL (5-100) 04/15/23 10:16 Total Protein 5.2 g/dL (6.4-8.9) L 04/15/23 10:16 Albumin 2.9 g/dL (3.2-5.5) L 04/15/23 10:16 Globulin 2.3 g/dL (2.1-4.2) 04/15/23 10:16 Albumin/Globulin Ratio 1.3 (1.0-2.2) 04/15/23 10:16 Lipase 11 U/L (11-82) 04/15/23 10:16 Carcinoembryonic Ag 32.5 ng/mL 04/15/23 10:16 Free PSA > 176.000 ng/mL (0.16-2.81) H 04/15/23 10:16 % Free PSA TNP 04/15/23 10:16 Total PSA 1240.000 ng/mL (0.000-2.000) H 04/15/23 10:16 Vitamin B12 525 pg/mL (180-914) 04/17/23 05:07 Folate 22.7 ng/mL (5.90 - >24.8) 04/17/23 05:07 Urine Color LT RED 04/16/23 11:00 Urine Clarity CLOUDY (CLEAR) 04/16/23 11:00 Urine pH 6.5 PH (5.0-7.5) 04/16/23 11:00 Ur Specific Josephine 1.015 (1.002-1.030) 04/16/23 11:00 Urine Protein 30 mg/dL (NEGATIVE) H 04/16/23 11:00 Urine Glucose (UA) NEGATIVE mg/dL (NEGATIVE) 04/16/23 11:00 Urine Ketones NEGATIVE mg/dL (NEGATIVE) 04/16/23 11:00 Urine Occult Blood LARGE (NEGATIVE) H 04/16/23 11:00 Urine Nitrite NEGATIVE (NEGATIVE) 04/16/23 11:00 Urine Bilirubin NEGATIVE (NEGATIVE) 04/16/23 11:00 Urine Urobilinogen 0.2 (NORMAL) E.U./dL (NORMAL) 04/16/23 11:00 Ur Leukocyte Esterase MODERATE (NEGATIVE) H 04/16/23 11:00 Urine RBC 11-25 /HPF (0-5) H 04/16/23 11:00 Urine WBC 11-25 /HPF (0-3) H 04/16/23 11:00 Ur Squamous Epith Cells FEW Squamous (<= Few) 04/16/23 11:00 Urine Bacteria Many /HPF (None Seen) H 04/16/23 11:00 Urine Culture Comments INDICATED 04/16/23 11:00 Nasal Adenovirus (PCR) NOT DETECTED 04/15/23 10:58 Nasal B. parapertussis DNA (PCR) NOT DETECTED 04/15/23 10:58 Nasal Coronavir 229E PCR NOT DETECTED 04/15/23 10:58 Nasal Coronavir HKU1 PCR NOT DETECTED 04/15/23 10:58 Nasal Coronavir NL63 PCR NOT DETECTED 04/15/23 10:58 Nasal Coronavir OC43 PCR NOT DETECTED 04/15/23 10:58 Nasal Enterovir/Rhinovir PCR NOT DETECTED 04/15/23 10:58 Nasal Influenza B PCR NOT DETECTED 04/15/23 10:58 Nasal Influenza A PCR NOT DETECTED 04/15/23 10:58 Nasal Parainfluen 1 PCR NOT DETECTED 04/15/23 10:58 Nasal Parainfluen 2 PCR NOT DETECTED 04/15/23 10:58 Nasal Parainfluen 3 PCR NOT DETECTED 04/15/23 10:58 Nasal Parainfluen 4 PCR NOT DETECTED 04/15/23 10:58 Nasal RSV (PCR) NOT DETECTED 04/15/23 10:58 Nasal B.pertussis DNA PCR NOT DETECTED 04/15/23 10:58 Nasal C.pneumoniae (PCR) NOT DETECTED 04/15/23 10:58 Tommy Human Metapneumo PCR NOT DETECTED 04/15/23 10:58 Nasal M.pneumoniae (PCR) NOT DETECTED 04/15/23 10:58 Nasal SARS-CoV-2 (PCR) NOT DETECTED 04/15/23 10:58 Ethyl Alcohol 40.3 mg/dL 04/15/23 10:16 Blood Type O POSITIVE 04/15/23 10:38 Blood Type Recheck O POSITIVE 04/15/23 12:10 Antibody Screen NEGATIVE 04/15/23 10:38
[2023-04-18] MEDS: TAMSULOSIN 0.4 MG CAPSULE PO SCH (21:24)
[2023-04-18] MEDS: ACETAMINOPHEN 325 MG TABLET PO SCH (21:24)
[2023-04-19] MEDS: SODIUM CHLORIDE FLUSH 0.9% 10 ML SYRINGE IVP SCH ×3 (00:29→15:59)
[2023-04-19] MEDS: BENZOCAINE/MENTHOL LOZENGE MM PRN (02:48)
[2023-04-19] MEDS: oxyCODONE 5 MG TABLET PO PRN ×2 (05:12→12:42)
[2023-04-19 05:21] LABS: BASOPHILS % (AUTO) 0.2 %; HCT - HEMATOCRIT 24.4 % (42.0-52.0); HGB - HEMOGLOBIN 7.8 g/dL (14.0-18.0); LYMPHOCYTES # (AUTO) 0.5 10^3/uL (1.5-3.5); LYMPHOCYTES % (AUTO) 3.8 %; MEAN CORPUSCULAR HEMOGLOBIN 36.3 pg (27.0-31.0); MEAN CORPUSCULAR VOLUME 113.5 fL (80.0-94.0); MEAN PLATELET VOLUME 9.3 fL (7.4-11.4); MONOCYTES # (AUTO) 1.5 10^3/uL (0.0-1.0); MONOCYTES % (AUTO) 10.9 %; NEUTROPHILS # (AUTO) 10.9 10^3/uL (1.5-6.6); NEUTROPHILS % (AUTO) 82.2 %; NRBC ABSOLUTE COUNT (AUTO) 0.12 x10^3/uL; NUCLEATED RED BLOOD CELLS AUTO 0.9 /100WBC; PLT - PLATELET COUNT 225 10^3/uL (130-450); RED BLOOD COUNT 2.15 10^6/uL (4.70-6.10); RED CELL DISTRIBUTION WIDTH 14.8 % (12.0-15.0); WHITE BLOOD COUNT 13.3 x10^3/uL (4.8-10.8)
[2023-04-19 05:26] LABS: SLIDE REVIEW? Indicated
[2023-04-19 05:42] LABS: CALCIUM 9.9 mg/dL (8.5-10.3); POTASSIUM 4.5 mmol/L (3.5-4.5)
[2023-04-19 05:51] LABS: PLATELET ESTIMATE, MANUAL NORMAL (130-450,000) (NORMAL)
[2023-04-19] MEDS: ACETAMINOPHEN 325 MG TABLET PO SCH ×3 (05:53→21:33)
[2023-04-19] MEDS: cefTRIAXone 2 GM in SODIUM CHLORIDE 0.9% MINIBAG 100 ML IV SCH (08:48)
[2023-04-19] MEDS: methylPREDNISolone SUCCINATE 40 MG/ML VIAL IVP SCH ×2 (08:48→20:46)
[2023-04-19] MEDS: PANTOPRAZOLE 40 MG TABLET PO SCH ×2 (08:49→20:46)
[2023-04-19] MEDS: NICOTINE 14 MG PATCH TOP SCH (08:49)
[2023-04-19] MEDS: METOPROLOL TARTRATE 25 MG TABLET PO SCH ×2 (08:49→20:46)
[2023-04-19] MEDS: TAMSULOSIN 0.4 MG CAPSULE PO SCH (20:46)
[2023-04-19] MEDS ORDERED: MONTELUKAST 10 MG TABLET PO SCH (21:07)
--- NOTE | 2023-04-19 21:33 | PROVIDER PROGRESS NOTE ---
Assessment/Plan - Problem List (1) COPD (chronic obstructive pulmonary disease) Assessment/Plan: He has a widened AP diameter, is a smoker, has a prolonged and exhalation phase and has scattered wheezing. He has chronic short of breath and tachypnea. He was apparently on no inhalers or COPD meds before this admission. Plan: He is already on DuoNeb as needed. Will cont this Will taper his TID iv Solumedrol to BID today. I will probably send him out on a quick Medrol oral tapering down dosing schedule, if he is discharged tomorrow to SNF Cont Erinn Ott Will add Montelukast qpm Qualifiers: COPD type: unspecified COPD Qualified Code(s): J44.9 - Chronic obstructive pulmonary disease, unspecified (2) Generalized weakness PT and OT evaluated him. He lives in a multilevel house, has 4 steps to get in, then 11 steps up to the second level. He uses a cane and a front wheel walker occasionally. He is usually independent with these. They do feel he has generalized weakness and mobility deficits and would benefit from acute PT services and would benefit from postacute services at a [place] [facility] [place] to return to baseline level of function. Plan: We are awaiting for arrangements for discharge to an accepting SNF for rehab. SW has said he may be [facility] tomorrow 04/20 (3) Chronic pain His cancer appears to have metastasized to bony areas, including a rib. He also has fallen recently. The rib fracture is really bothering him. He is noticeably splinting. He forgets to ask for pain meds Plan: Cont with scheduled Tylenol TID (4) BPH with elevated PSA Conclusion/Plan: Both the patient and his son Duncan stated that he has no history of prostate cancer. Yet CT confirms a large prostate. He has a chronic indwelling Lopez catheter. I checked a PSA and his total PSA is 1240. Free PSA is greater than 176. CEA is 32.5. He has multiple bony sclerotic lesions compatible with diffuse metastatic disease. He has a broken rib. And he has possible tumor necrosis in the left upper lobe of his lung. 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 When the last Hospitalist shared her thought process with both the son and the patient, they were both shocked. They feel like they have been comp letely sideswipe. They never saw this coming. We have asked [facility] to send resords from a year ago where he was hospitalized but the records have not arrived. Plan: The patient will need to have follow-up with his outpatient primary care provider, Dr. Derek Henao, from there he needs to be referred for biopsy and then options for treatment should be discussed. (5) Chronic indwelling Lopez catheter Conclusion/Plan: He reports going to the [facility] clinic to get this changed once a month. He sees Dr. Derek Henao. The leg bag is very, very, very foul-smelling. Plan: We will provide him with a new leg bag and he has already had his Lopez changed out in the ER. (6) CAUTI Conclusion/Plan: Urinalysis had proteinuria, large amount of occult blood, moderate leukocyte Estrace, 11-25 red cells, 11-25 white cells, few squamous cells, and many bacteria. The culture has grown out Proteus and Klebsiella. Ceftriaxone is an appropriate antibiotic for this. Plan: Rocephin iv originally planned for a 7 day course. When his white cell count is normal, change to p.o. depending on the sensitivities of the bacteria. Today WBC 13 He will be discharging to the SNF to take several a day of iv Ceftriaxone, then change to po antibx for another 7 days. 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 He has a broken rib. And he has possible tumor necrosis in the left upper lobe of his lung. 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 When the last Hospitalist shared her thought process with both the son and the patient, they were both shocked. They feel like they have been completely sideswipe. His cancer appears to have metastasized to bony areas, including a rib. Plan: The patient will need to have follow-up with his outpatient primary care provider, Dr. Derek Henao, from there he needs to be referred for biopsy and then options for treatment should be discussed. (8) Melena Melena with presumed GI bleed since he began having melena. EGD was done. No esophageal varices, even with Hx of alcohol abuse. Distal esophagus with changes that indicate he may have bled from there. Not actively bleeding at this time. He does have a hiatal hernia. Initial hemoglobin was 10.1. He dropped to the sevens where it appears to have stabilized. He is being treated with Protonix twice daily. He joeiuld never takes nonsteroidal therapy. Plan: From a GI perspective, he is now considered medically stable. His other issues of generalized weakness, skeletal pain from osseous metastatic disease, and presumed prostate cancer have come to the front of the line with regards to what we need to do (9) Acute blood loss anemia Conclusion/Plan: Plan: On Protonix to 40 mg p.o. twice daily. He will need to stay on this for a month. (10) Alcohol abuse Conclusion/Plan: As per Hx. He said he has never gone through withdrawal. He was on Banana bag earlier this admission, and on a CIWA protocol. The CIWA protocol and scheduled Librium have been stopped Plan: Cont p.o. vitamins (11) Macrocytosis Conclusion/Plan: This is presumably from alcohol abuse. Plan: Cont MOV and Thiamine - Current Meds Current Meds: Current Medications Generic Name Dose Route Start Last Admin Trade Name Freq PRN Reason Stop Dose Admin Acetaminophen 650 mg 04/15/23 12:34 04/15/23 12:53 Acetaminophen 325 Mg Tablet PO 650 mg Q4HR PRN Administration Pain 1 to 4, or Fever Acetaminophen 650 mg 04/18/23 22:00 04/19/23 15:46 Acetaminophen 325 Mg Tablet PO 650 mg TID MICHELLE Administration Albuterol/Ipratropium 3 ml 04/16/23 07:56 04/16/23 08:50 Ipratropium/Albuterol 3 Ml Neb INH 3 ml RTQID PRN Administration Shortness of Air/Wheezing Benzonatate 100 mg 04/18/23 04:01 04/18/23 21:27 Benzonatate 100 Mg Capsule PO 100 mg TID PRN Administration Cough Ceftriaxone Sodium 2 gm/ 100 mls @ 200 mls/hr 04/16/23 12:00 04/19/23 12:36 Sodium Chloride IV Infused DAILY MICHELLE Infusion Methylprednisolone 40 mg 04/18/23 18:00 04/19/23 20:46 Methylprednisolone Succinate 40 Mg/Ml Vial IVP 40 mg BID MICHELLE Administration Metoprolol Tartrate 25 mg 04/15/23 21:00 04/19/23 20:46 Metoprolol Tartrate 25 Mg Tablet PO 25 mg BID MICHELLE Administration Montelukast Sodium 10 mg 04/19/23 21:07 04/19/23 21:30 Montelukast 10 Mg Tablet PO 10 mg QPM MICHELLE Administration Multi-Ingredient Ointment 1 applic 04/15/23 16:17 04/16/23 22:22 Zinc Oxide 20% Oint 30 Gm Tube TOP 1 bag PRN PRN Administration Skin Care Nicotine 1 patch 04/16/23 15:00 04/19/23 08:49 Nicotine 14 Mg Patch TOP 1 patch DAILY MICHELLE Administration Oxycodone HCl 5 mg 04/15/23 12:34 04/19/23 12:42 Oxycodone 5 Mg Tablet PO 5 mg Q4HR PRN Administration Pain 5 to 7 Pantoprazole Sodium 40 mg 04/16/23 21:00 04/19/23 20:46 Pantoprazole 40 Mg Tablet PO 40 mg BID MICHELLE Administration Sodium Chloride 10 ml 04/15/23 12:34 04/17/23 14:09 Sodium Chloride Flush 0.9% 10 Ml Syringe IVP 10 ml PRN PRN Administration NEEDED PER PROVIDER ORDERS Sodium Chloride 10 ml 04/15/23 17:00 04/19/23 15:59 Sodium Chloride Flush 0.9% 10 Ml Syringe IVP 10 ml 0100,0900,1700 MICHELLE Administration Sodium Chloride 2 sprays 04/16/23 22:15 04/18/23 13:42 Sodium Chloride 0.65% Nasal Adams TOMMY 2 spr Q4HR PRN Administration Nasal Congestion Tamsulosin HCl 0.4 mg 04/15/23 21:00 04/19/23 20:46 Tamsulosin 0.4 Mg Capsule PO 0.4 mg QPM MICHELLE Administration Throat Lozenges 1 lozenge 04/18/23 02:33 04/19/23 02:48 Benzocaine/Menthol Lozenge MM 1 lozenge Q2HR PRN Administration Throat pain - Lab Result Fish Bone Diagrams: 04/19/23 04:53 04/19/23 04:53 - Additional Planning My Orders: My Active Orders 04/18/23 22:00 Acetaminophen [Tylenol] 650 mg PO TID 04/19/23 21:03 Code Status [OTHERS] Routine 04/19/23 21:07 Montelukast [Singulair] 10 mg PO QPM Subjective - Subjective Patient Reports: Feeling Better (Did not need O2 temprarily. Was able to sit up in a chair for several hours and felt good, was on O2 then), No Complaints Objective Vital Signs: Vital Signs - 24 hr 04/19/23 04/19/23 04/19/23 00:00 07:57 08:49 Temperature 36.5 C 36.6 C Heart Rate [ 85 80 Brachial] Respiratory 20 20 Rate Blood Pressure 111/64 Blood Pressure 105/60 111/64 [Right Brachial artery] O2 Saturation 95 91 L If not protocol : Oxygen Flow, liters/minute 04/19/23 04/19/23 15:40 20:46 Temperature 36.4 C L Heart Rate [ 86 Brachial] Respiratory 24 Rate Blood Pressure 118/68 Blood Pressure 133/66 H [Right Brachial artery] O2 Saturation 94 If not protocol 1 : Oxygen Flow, liters/minute Oxygen O2 Source Nasal cannula I&O (Last 24 Hrs): Intake and Output Totals x24h 04/17/23 04/18/23 04/19/23 23:59 23:59 23:59 Intake Total 1940 1505 1000 Output Total 1600 1100 800 Balance 340 405 200 General: Alert, Oriented x3 HEENT: Mucous membr. moist/pink Neck: Supple Neuro: Alert, Non Focal Cardiovascular: No murmurs (Distant heart sounds due to COPD) Respiratory: Other (Shallow breaths and poor air movement, no wheezing to) Abdomen: Soft, No tenderness Extremities: No clubbing, No edema, Other (Trace pretibial edema) - Results Results: Laboratory Results WBC 13.3 x10^3/uL (4.8-10.8) H 04/19/23 04:53 RBC 2.15 10^6/uL (4.70-6.10) L 04/19/23 04:53 Hgb 7.8 g/dL (14.0-18.0) L 04/19/23 04:53 Hct 24.4 % (42.0-52.0) L 04/19/23 04:53 MCV 113.5 fL (80.0-94.0) H 04/19/23 04:53 MCH 36.3 pg (27.0-31.0) H 04/19/23 04:53 MCHC 32.0 g/dL (32.0-36.0) 04/19/23 04:53 RDW 14.8 % (12.0-15.0) 04/19/23 04:53 Plt Count 225 10^3/uL (130-450) 04/19/23 04:53 MPV 9.3 fL (7.4-11.4) 04/19/23 04:53 Neut # (Auto) 10.9 10^3/uL (1.5-6.6) H 04/19/23 04:53 Lymph # (Auto) 0.5 10^3/uL (1.5-3.5) L 04/19/23 04:53 Mcnairy # (Auto) 1.5 10^3/uL (0.0-1.0) H 04/19/23 04:53 Eos # (Auto) 0.0 10^3/uL (0.0-0.7) 04/19/23 04:53 Baso # (Auto) 0.0 10^3/uL (0.0-0.1) 04/19/23 04:53 Absolute Nucleated RBC 0.12 x10^3/uL 04/19/23 04:53 Nucleated RBC % 0.9 /100WBC 04/19/23 04:53 Manual Slide Review Indicated 04/19/23 04:53 WBC Morphology NORMAL APPEARANCE (NORMAL) 04/16/23 04:57 Platelet Estimate NORMAL (130-450,000) (NORMAL) 04/19/23 04:53 Platelet Morphology NORMAL APPEARANCE (NORMAL) 04/16/23 04:57 RBC Morph Micro Appear 2+ MACROCYTOSIS (NORMAL) 1+ HYPOCHROMASIA (NORMAL) 1+ POLYCHROMASIA (NORMAL) 04/19/23 04:53 RBC Morph Micro Appear 2+ MACROCYTOSIS (NORMAL) 1+ HYPOCHROMASIA (NORMAL) 1+ POLYCHROMASIA (NORMAL) 04/19/23 04:53 RBC Morph Micro Appear 2+ MACROCYTOSIS (NORMAL) 1+ HYPOCHROMASIA (NORMAL) 1+ POLYCHROMASIA (NORMAL) 04/19/23 04:53 PT 14.0 secs (9.9-12.6) H 04/15/23 10:16 INR 1.3 (0.8-1.2) H 04/15/23 10:16 APTT 28.0 secs (24.9-33.3) 04/15/23 10:16 Bld Gas Analysis Time 1555 04/15/23 15:45 Sample Site RIGHT RADIAL 04/15/23 15:45 ABG pH 7.44 (7.35-7.45) 04/15/23 15:45 ABG pCO2 34 mmHg (34-45) 04/15/23 15:45 ABG pO2 64 mmHg (80-100) L 04/15/23 15:45 ABG HCO3 22.3 mmol/L (22.0-26.0) 04/15/23 15:45 ABG Total CO2 23.4 MMOL/L (21.0-29.0) 04/15/23 15:45 ABG O2 Saturation 92 % (94-98) L 04/15/23 15:45 ABG Base Excess -1.5 mmol/L (-2.0-3.0) 04/15/23 15:45 Juaquin Test POSITIVE 04/15/23 15:45 Room Air YES 04/15/23 15:45 Sodium 135 mmol/L (135-145) 04/19/23 04:53 Potassium 4.5 mmol/L (3.5-4.5) 04/19/23 04:53 Chloride 106 mmol/L (101-111) 04/19/23 04:53 Carbon Dioxide 26 mmol/L (21-32) 04/19/23 04:53 Anion Gap 3.0 (6-13) L 04/19/23 04:53 BUN 46 mg/dL (6-20) H 04/19/23 04:53 Creatinine 1.0 mg/dL (0.6-1.3) 04/19/23 04:53 Estimated GFR (MDRD) 71 (>89) L 04/19/23 04:53 Glucose 122 mg/dL (74-104) H 04/19/23 04:53 Calcium 9.9 mg/dL (8.5-10.3) 04/19/23 04:53 Magnesium 1.9 mg/dL (1.7-2.3) 04/15/23 10:16 Total Bilirubin 0.4 mg/dL (0.2-1.0) 04/15/23 10:16 AST 14 IU/L (10-42) 04/15/23 10:16 ALT 8 IU/L (10-60) L 04/15/23 10:16 Alkaline Phosphatase 330 IU/L (42-121) H 04/15/23 10:16 B-Natriuretic Peptide 82 pg/mL (5-100) 04/15/23 10:16 Total Protein 5.2 g/dL (6.4-8.9) L 04/15/23 10:16 Albumin 2.9 g/dL (3.2-5.5) L 04/15/23 10:16 Globulin 2.3 g/dL (2.1-4.2) 04/15/23 10:16 Albumin/Globulin Ratio 1.3 (1.0-2.2) 04/15/23 10:16 Lipase 11 U/L (11-82) 04/15/23 10:16 Carcinoembryonic Ag 32.5 ng/mL 04/15/23 10:16 Free PSA > 176.000 ng/mL (0.16-2.81) H 04/15/23 10:16 % Free PSA TNP 04/15/23 10:16 Total PSA 1240.000 ng/mL (0.000-2.000) H 04/15/23 10:16 Vitamin B12 525 pg/mL (180-914) 04/17/23 05:07 Folate 22.7 ng/mL (5.90 - >24.8) 04/17/23 05:07 Urine Color LT RED 04/16/23 11:00 Urine Clarity CLOUDY (CLEAR) 04/16/23 11:00 Urine pH 6.5 PH (5.0-7.5) 04/16/23 11:00 Ur Specific [place] 1.015 (1.002-1.030) 04/16/23 11:00 Urine Protein 30 mg/dL (NEGATIVE) H 04/16/23 11:00 Urine Glucose (UA) NEGATIVE mg/dL (NEGATIVE) 04/16/23 11:00 Urine Ketones NEGATIVE mg/dL (NEGATIVE) 04/16/23 11:00 Urine Occult Blood LARGE (NEGATIVE) H 04/16/23 11:00 Urine Nitrite NEGATIVE (NEGATIVE) 04/16/23 11:00 Urine Bilirubin NEGATIVE (NEGATIVE) 04/16/23 11:00 Urine Urobilinogen 0.2 (NORMAL) E.U./dL (NORMAL) 04/16/23 11:00 Ur Leukocyte Esterase MODERATE (NEGATIVE) H 04/16/23 11:00 Urine RBC 11-25 /HPF (0-5) H 04/16/23 11:00 Urine WBC 11-25 /HPF (0-3) H 04/16/23 11:00 Ur Squamous Epith Cells FEW Squamous (<= Few) 04/16/23 11:00 Urine Bacteria Many /HPF (None Seen) H 04/16/23 11:00 Urine Culture Comments INDICATED 04/16/23 11:00 Nasal Adenovirus (PCR) NOT DETECTED 04/15/23 10:58 Nasal B. parapertussis DNA (PCR) NOT DETECTED 04/15/23 10:58 Nasal Coronavir 229E PCR NOT DETECTED 04/15/23 10:58 Nasal Coronavir HKU1 PCR NOT DETECTED 04/15/23 10:58 Nasal Coronavir NL63 PCR NOT DETECTED 04/15/23 10:58 Nasal Coronavir OC43 PCR NOT DETECTED 04/15/23 10:58 Nasal Enterovir/Rhinovir PCR NOT DETECTED 04/15/23 10:58 Nasal Influenza B PCR NOT DETECTED 04/15/23 10:58 Nasal Influenza A PCR NOT DETECTED 04/15/23 10:58 Nasal Parainfluen 1 PCR NOT DETECTED 04/15/23 10:58 Nasal Parainfluen 2 PCR NOT DETECTED 04/15/23 10:58 Nasal Parainfluen 3 PCR NOT DETECTED 04/15/23 10:58 Nasal Parainfluen 4 PCR NOT DETECTED 04/15/23 10:58 Nasal RSV (PCR) NOT DETECTED 04/15/23 10:58 Nasal B.pertussis DNA PCR NOT DETECTED 04/15/23 10:58 Nasal C.pneumoniae (PCR) NOT DETECTED 04/15/23 10:58 Tommy Human Metapneumo PCR NOT DETECTED 04/15/23 10:58 Nasal M.pneumoniae (PCR) NOT DETECTED 04/15/23 10:58 Nasal SARS-CoV-2 (PCR) NOT DETECTED 04/15/23 10:58 Ethyl Alcohol 40.3 mg/dL 04/15/23 10:16 Blood Type O POSITIVE 04/15/23 10:38 Blood Type Recheck O POSITIVE 04/15/23 12:10 Antibody Screen NEGATIVE 04/15/23 10:38
[2023-04-20] MEDS: SODIUM CHLORIDE 0.65% NASAL SPRAY NAS PRN (00:06)
[2023-04-20] MEDS: SODIUM CHLORIDE FLUSH 0.9% 10 ML SYRINGE IVP SCH ×2 (00:07→08:43)
[2023-04-20] MEDS: ACETAMINOPHEN 325 MG TABLET PO SCH (06:08)
[2023-04-20 06:16] LABS: BASOPHILS % (AUTO) 0.2 %; HCT - HEMATOCRIT 24.5 % (42.0-52.0); HGB - HEMOGLOBIN 7.6 g/dL (14.0-18.0); LYMPHOCYTES % (AUTO) 3.8 %; MEAN CORPUSCULAR HEMOGLOBIN 35.2 pg (27.0-31.0); MEAN CORPUSCULAR VOLUME 113.4 fL (80.0-94.0); MEAN PLATELET VOLUME 9.6 fL (7.4-11.4); MONOCYTES % (AUTO) 12.2 %; PLT - PLATELET COUNT 248 10^3/uL (130-450); RED BLOOD COUNT 2.16 10^6/uL (4.70-6.10); RED CELL DISTRIBUTION WIDTH 14.7 % (12.0-15.0); WHITE BLOOD COUNT 12.1 x10^3/uL (4.8-10.8)
[2023-04-20 06:27] LABS: CALCIUM 9.7 mg/dL (8.5-10.3); POTASSIUM 4.6 mmol/L (3.5-4.5)
[2023-04-20 06:42] LABS: SLIDE REVIEW? Indicated
[2023-04-20 07:11] LABS: ABNORMAL LYMPHS % (MANUAL) 0 %
[2023-04-20 07:13] LABS: BAND NEUTROPHILS % (MANUAL) 5 %; LYMPHOCYTES # (MANUAL) 0.4 10^3/uL (1.5-3.5); LYMPHOCYTES % (MANUAL) 3 %; METAMYELOCYTES % (MANUAL) 1 %; MONOCYTES # (MANUAL) 0.8 10^3/uL (0.0-1.0); MYELOCYTES % (MANUAL) 2 %; NEUTROPHILS # (MANUAL) 10.5 10^3/uL (1.5-6.6); NUCLEATED RBC (MANUAL) 3 %
[2023-04-20 07:16] LABS: DIFFERENTIAL COMMENT MANUAL DIFFERENTIAL
[2023-04-20 08:31] VITALS: O2SAT 93
[2023-04-20] MEDS: METOPROLOL TARTRATE 25 MG TABLET PO SCH (08:42)
[2023-04-20] MEDS: methylPREDNISolone SUCCINATE 40 MG/ML VIAL IVP SCH (08:42)
[2023-04-20] MEDS: cefTRIAXone 2 GM in SODIUM CHLORIDE 0.9% MINIBAG 100 ML IV SCH (08:42)
[2023-04-20] MEDS: PANTOPRAZOLE 40 MG TABLET PO SCH (08:43)
[2023-04-20] MEDS: NICOTINE 14 MG PATCH TOP SCH (08:43)
[2023-04-20 08:50] VITALS: BP 111/64
[2023-04-20] MEDS ORDERED: MULTIVITAMIN W/MINERALS TABLET PO SCH (10:00)
[2023-04-20] MEDS ORDERED: polyethylene glycoL 3350 17 GM PACKET PO SCH (10:00)
--- NOTE | 2023-04-20 13:21 | Discharge Plan ---
"Discharge Plan for SNF / LANCE - Discharge Plan And Transition Orders Problem Reviewed?: Yes Disposition: 03 [facility] DC/Xfer Condition: Fair Allergies and Adverse Reactions: Allergies Allergy/AdvReac Type Severity Reaction Status Date / Time No Known Drug Allergies Allergy Verified 04/15/23 10:13 Health Concerns: The patient was hospitalized to manage shortness of breath, hypoxia, melena and anemia. He underwent EGD that showed no source of bleeding. He had a Hx of alcohol abuse and was put on a CIWA protocol and managed on prn Ativan and oral Librium which have been tapered to off. He was put on meds for COPD. He was found to have a catheter-associated UTI. He needs to finish 1 more day of IV ceftriaxone on 04/21/2023. Following that he needs to transition to 7 days of oral antibiotic. He is keeping his chronic Lopez in place. He is being discharged to SNF for PT and OT rehab. Plan of Treatment: As above. Care Goals: Improvement in symptoms and stabilization are the goals. Assessment: The patient understands and is agreeable with the plan. - SNF / LANCE Transition Orders Admit to (Facility): [facility] ED Under the care of (Name): Dr Derek Henao Discharge Diagnosis: (1) Melena Improved (2) Acute blood loss anemia Remain on Protonix 40 mg p.o. BID for a month. (3) Macrocytosis This is presumably from alcohol abuse. (4) Alcohol abuse As per Hx (5) COPD (chronic obstructive pulmonary disease) Unknown if he has ever had PFTs but he is being discharged on bronchodilators and a Medrol dose pack (6) Chronic pain (7) BPH with elevated PSA (8) Chronic indwelling Lopez catheter His Lopez was changed out in the ER. (9) CAUTI He is being discharged to the SNF to take one more day of iv Ceftriaxone, then change to po for another 7 days. 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 He needs referral to his PCP or oncologist to evaluate and offer options for treatment (11) Generalized weakness He requires more PT and OT rehab Medicare Certification Statement: I certify that Post Hospital chcf care is medically necessary on a continuing basis for any of the conditions for which she/he is receiving care during hospitalization. Notify PCP of admission and forward orders to primary provider for signature. Weight on admission and: Monthly Other Notification Orders: Call PCP immediately if patient develops dyspnea, chest pain/tightness or edema. House Bowel Program: Yes Additional Bowel Program Orders: If no BM after 2 days, nurse may give M.O.M. 30ml PO PRN and/or ducolax Supp 1 IN and/or MICHAEL 250mg P.O., and/or senna 1-2 tabs PO. On day 3 nurse may give repeat above order until residents constipation is resolved. Annual Influenza Vaccine (between Mar 03 and September 30): Yes Two-step PPD per [facility] [phone] or approved exception documents: Yes Oxygen Orders: Room air at rest, but he needs 2 L/min supplemental O2 via nasal cannula with any exertion Medication Orders: PLEASE REFER TO THE DISCHARGE MEDICATION LIST. Insulin Orders?: No - Medications New Prescriptions: oxyCODONE [Roxicodone] 5 mg PO Q6HR PRN #10 tab PRN Reason: Severe Pain (Level 7-10) Ipratropium/Albuterol [Duoneb] 3 ml INH RTQID PRN #60 ea PRN Reason: Shortness Of Air/Wheezing levoFLOXacin [Levofloxacin] 750 mg PO DAILY #7 tablet Metoprolol Tartrate [Lopressor] 25 mg PO BID #60 tab methylPREDNISolone [Medrol Dose Pack] 1 each PO .PACKAGEINSTRUCTIONS 6 Days #1 e ach Pantoprazole [Protonix] 40 mg PO BID #60 tab cefTRIAXone [Rocephin 2 gram] 2 gm IV ONCE #1 each Montelukast [Singulair] 10 mg PO QPM #30 tab Benzonatate [Tessalon] 100 mg PO TID PRN #30 cap PRN Reason: Cough Multivitamin W/Minerals [Theragran M] 1 tab PO DAILYWM #30 tab Acetaminophen [Tylenol] 650 mg PO TID #90 tab Thiamine [Vitamin B-1] 100 mg PO DAILY #30 tablet - Diet Type: Geriatric Texture: Regular Liquids: Thin May have monthly special meal: Yes - Therapies | Activity Therapy: Evaluation | Treat if indicated: PT, OT Rehabilitation Potential: Maximize functional status Activity: Activity as Tolerated Weight Bearing: Full Weight Assistance Devices: Walker Follow Up: See PCP after discharge from SNF"
--- NOTE | 2023-04-20 13:36 | DISCHARGE SUMMARY ---
Discharge Summary Admit Date: 04/15/23 Discharge Date: 04/20/23 Discharging Provider: Dr Elisa Crabtree Primary Care Provider: Dr Derek Henao Condition at Discharge: Fair Discharge Disposition: 03 SNF DC/Xfer - HPI History of Present Illness: This is an 88-year-old male who lives alone in his own home. Son lives in a trailer on the same property. When I spoke to the son about dad's history, son was not able to really share very much. He says that dad is a very private pe rson. Son does not know who dad's primary care provider is; how often is dad seen; what dad's medical problems are; or his medications. He does not take his dad to doctors visits. Dad is still independent and drives himself. The patient is very sleepy. Keeps on drifting off in my history. I have to shake his shoulder gently to wake him up. Tells me he sees the [facility] and sees Derek Henao. He has a past medical history of high blood pressure. He says he does not have any other medical problems but his son shared with me that dad had ulcers in his stomach in the past. The only other problem is has is a chronic indwelling Lopez catheter. But patient or son cannot tell me why he has an indwelling Lopez catheter. Patient just says "I cannot pee". When I ask the patient if he has a problem with a large prostate or history of prostate cancer, he says not that he is aware of. He still dresses himself, feeds himself. Drives his car to appointments or to the recycling center with his wine bottles. Son goes to the grocery store for him. According to michelle pacheco, 5 years ago patient began drinking heavily. The patient himself denies alcohol abuse. But he used to drink socially. With his . She would control his drinking but only serving him wine when she wanted him to drink. Or she would dilute his glass with ice. When she , he took it very hard and was drinking upwards of 4 to 8 glasses of wine a day. He was started around 3 in the afternoon. Take a break with dinner and TV watching. But then go back to drinking toward the end of his TV watching as he went to bed. He fell several times because he was inebriated. After 3 years he stopped drinking that much. 1 fall really scared him and embarrassed him because he broke a rib. He had to call his son to come get him. Son noticed that after that, he still drank but less so. Anywhere from 1 glass of wine to 3 glasses of wine in the afternoon. 5 weeks ago the patient started developing right rib cage pain. It felt a lot like a rib fracture that he had before. Pretty much that is when he started slowing down. The rib was really hurting him. He was taking Tylenol. Drinking wine to control the pain. He was not taking Motrin, Aleve, ibuprofen etc. The son had some leftover oxycodone and gave his dad 2 tablets and he has been using his son's oxycodone and the alcohol to control his pain. A year ago he was hospitalized at [facility] for urinary tract infection. He was in the hospital for 10 days. He recovered but ever since then he has had a Lopez catheter. He and his son described a procedure where they "stuck something in his lung to see what was behind the left side". But not much more was remembered. After that, he goes every month to get his Lopez change. At the [employer] [facility] with Dr. Derek Henao. Patient describes being "okay" with appetite. No unexpected weight loss. No fevers, chills, sweats. He wears glasses, and may have early cataracts. He is slightly deaf. He coughs every single day and brings up clear phlegm. Denies hemoptysis. He is always short of breath. But he does not wear oxygen. The shortness of breath is mainly when he tries to stand for too long or walk for too long. He does not define what "too long is". He denies chest pain, pleuritic chest pain, orthopnea other than the RL rib cage popping rib pain. Ankles are occasionally swollen but that is not new. He denies any abdominal pain or GI complaints until this last week. He noticed that he was having increasing bowel movements. Sometimes they were black, sometimes they were brown. In contrast to his son's history, he states that he drinks on a daily basis, but only 1 large glass of wine a day. He denies nonsteroidal therapy. He started smoking at the age of 18 and smoked until the age of 62. He denies current smoking. He does not remember having a colonoscopy. He has diffuse bony pain. Back has become more painful is lower T spine and L spine over the last few months. Hips and knees very stiff. In the last few weeks, he has noticed that his right lower rib cage is popping. Every time he takes a deep breath it is a sharp stabbing pain. He has fallen 3 times in the last 6 months because he has been losing his balance. Once he sat down but missed the chair and ended up on the floor. He was not inebriated with that. He denies memory loss, syncope, seizures. He lost his balance because "I am getting old, why do you think?". No new skin lesions. Denies suicidal ideation. Denies depression. In the last 24 to 48 hours the bowel movements have come with increasing frequency and more liquid in consistency. He is starting to become incontinent. He became weak, uncoordinated. Did not have any appetite. When he started feeling like he was having abdominal pain and he was brought in. The abdominal pain is in the upper abdomen, epigastric. Periumbilical. Nonradiating. Took away his appetite. But no emesis or vomiting of blood. In the ER temperature was 36.4. Heart rate 99. Blood pressure 60/34. R espirations 30. 98% on room air. He says abdominal pain was 8 out of a 10. He was alert and oriented and well-nourished well-developed but pale. He is lips had purpleish black discoloration that wipes off. He said that is from his daily wine. He had a soft, nondistended abdomen. Tender with some local guarding in the epigastric area. Lower abdomen was nontender. Liver felt slightly enlarged. On rectal exam he had a dark malodorous melena at the rectum and on his underpants. Hemoglobin was 10.1. White cell count 17. Platelet 249. Sodium 130, potassium 5.2. BUN 75. Creatinine 1.2. Glucose 132. Bili and liver enzymes were normal. Alk phos elevated at 330. Total protein is 5.2. Albumin 2.9. Alcohol was 40. Chest x-ray had cardiomegaly and interstitial prominence with a left-sided pleural effusion. CHF is suspected. Abdomen and pelvis CT angiogram had consolidation involving the left lower lobe with gas and potential internal necrosis. Moderate to large hiatal hernia. Moderate coronary artery calcification. Heart size normal. Bladder density left renal cyst seen. No adrenal nodules. Spleen small and irregular. No findings of active GI extravasation is seen. He has moderate wall thickening involving the rectum. No free fluid or air. Diverticulosis without diverticulitis. Enlarged retroperitoneal lymph nodes. Enlarged periaortic. Enlarged pelvic nodes. A mildly displaced left posterior eighth rib fracture. Other remote rib. Fractures are seen. Numerous sclerotic bony lesions throughout the visualized bones. Moderate levoconvex lumbar scoliosis. Lopez in place. Mild fat- containing bilateral inguinal hernias. The overall picture is enlarged nodes representing metastatic disease, sclerotic bony metastatic disease, one displaced left posterior rib fracture with other rib fractures. An irregular prostate. 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 There is a left lower lobe pulmonary lesion with internal gas and potential necrosis. Consider neoplasm versus necrotizing pneumonia. The patient was discussed with the ER provider. And I initially placed him in Observation status thinking he was a simple GI bleed. The case had also been discussed with general surgery for possible endoscopy. I now realize that this patient is a much more complicated medical history with possible complication of tumor, possible future alcohol withdrawal, AND GI bleed. I may end up changing him to Inpatient status sooner rather than later. - HOSPITAL COURSE Hospital Course: (1) Melena Improved as bleeding ceased. (2) Acute blood loss anemia He was started on empiric Protonix and should remain on Protonix 40 mg p.o. BID for a month. (3) Macrocytosis This is presumably from alcohol abuse. (4) Alcohol abuse As per Hx (5) COPD (chronic obstructive pulmonary disease) Unknown if he has ever had PFTs but he is being discharged on bronchodilators and a Medrol dose pack (6) Chronic pain He did require pain meds. (7) BPH with elevated PSA This needs further W/U. (8) Chronic indwelling Lopez catheter His Lopez was changed out in the ER. (9) CAUTI He is being discharged to the SNF to take one more day of iv Ceftriaxone, then change to po for another 7 days. 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 He needs referral to his PCP or oncologist to evaluate and offer options for treatment (11) Generalized weakness He was deconditioned and required more PT and OT rehab, and was dsicharged to a SNF. - ALLERGIES Allergies/Adverse Reactions: Allergies Allergy/AdvReac Type Severity Reaction Status Date / Time No Known Drug Allergies Allergy Verified 04/28/23 14:50 - MEDICATIONS Home Medications: Ambulatory Orders Medication Instructions Recorded Confirmed Tamsulosin [Flomax] 0.4 mg PO DAILY 04/15/23 04/29/23 Acetaminophen [Tylenol] 650 mg PO TID #90 tab 04/20/23 04/29/23 Benzonatate [Tessalon] 100 mg PO TID PRN #30 cap 04/20/23 04/29/23 Ipratropium/Albuterol [Duoneb] 3 ml INH RTQID PRN #60 ea 04/20/23 04/29/23 Metoprolol Tartrate [Lopressor] 25 mg PO BID #60 tab 04/20/23 04/29/23 Montelukast [Singulair] 10 mg PO QPM #30 tab 04/20/23 04/29/23 Multivitamin W/Minerals [Theragran 1 tab PO DAILYWM #30 tab 04/20/23 04/29/23 M] Pantoprazole [Protonix] 40 mg PO BID #60 tab 04/20/23 04/29/23 Thiamine [Vitamin B-1] 100 mg PO DAILY #30 tablet 04/20/23 04/29/23 oxyCODONE [Roxicodone] 5 mg PO Q6HR PRN #10 tab 04/20/23 04/29/23 - PHYSICAL EXAM AT DISCHARGE General Appearance: positive: No acute distress, Alert Eyes Bilateral: positive: Normal inspection, EOMI ENT: positive: ENT inspection nml, No signs of dehydration Neck: positive: Nml inspection, No JVD Respiratory: positive: No respiratory distress, Breath sounds nml Cardiovascular: positive: Regular rate & rhythm, No murmur (distant heart sounds due to COPD) Abdomen: positive: Non-tender, Nml bowel sounds, No distention Skin: positive: Warm, Dry Extremities: positive: Non-tender, Other (2+ edema to above ankles) Neurologic/Psychiatric: positive: Oriented x3, Motor nml - LABS Result Diagrams: 04/20/23 05:13 04/20/23 05:13 - DIAGNOSTIC IMAGING Diagnostic Imaging Results: Final report reviewed - FOLLOW UP Follow Up: See PCP in 1-2 weeks for a hospital follow-up visit. - TIME SPENT Time Spent in Discharge (Minutes): 40
== END 2023-04-20 13:40 | DRG 380 ==
LOC: ED 09:50 → MS2 12:34 → OBSVTOIN 04-16 11:15
PROVIDERS: ADMIT Specialist; ATTEND Internal Medicine
PROC: 0DJ08ZZ Inspection of Upper Intestinal Tract, Via Natural or Artificial Opening Endoscopic (ICD-10-PCS; principal; 2023-04-16 09:00)
PROC: 0DJD8ZZ Inspection of Lower Intestinal Tract, Via Natural or Artificial Opening Endoscopic (ICD-10-PCS; 2023-04-16 09:00)
DX: K92.2 Gastrointestinal hemorrhage, unspecified (principal); I95.89 Other hypotension; K22.11 Ulcer of esophagus with bleeding; R91.1 Solitary pulmonary nodule; M89.9 Disorder of bone, unspecified; I10 Essential (primary) hypertension; J85.0 Gangrene and necrosis of lung; T83.511A Infection and inflammatory reaction due to indwelling urethral catheter, initial encounter; J90 Pleural effusion, not elsewhere classified; N39.0 Urinary tract infection, site not specified; C77.9 Secondary and unspecified malignant neoplasm of lymph node, unspecified; S22.32XA Fracture of one rib, left side, initial encounter for closed fracture; C79.51 Secondary malignant neoplasm of bone; D62 Acute posthemorrhagic anemia; I85.00 Esophageal varices without bleeding; E46 Unspecified protein-calorie malnutrition; F10.139 Alcohol abuse with withdrawal, unspecified; K44.9 Diaphragmatic hernia without obstruction or gangrene; Y90.2 Blood alcohol level of 40-59 mg/100 ml; D75.89 Other specified diseases of blood and blood-forming organs; J44.9 Chronic obstructive pulmonary disease, unspecified; G89.29 Other chronic pain; N40.0 Benign prostatic hyperplasia without lower urinary tract symptoms; R97.20 Elevated prostate specific antigen [PSA]; R53.1 Weakness; Z87.891 Personal history of nicotine dependence; I11.0 Hypertensive heart disease with heart failure; I50.9 Heart failure, unspecified; I25.10 Atherosclerotic heart disease of native coronary artery without angina pectoris; K57.31 Diverticulosis of large intestine without perforation or abscess with bleeding; W19.XXXA Unspecified fall, initial encounter; Z91.81 History of falling; Z66 Do not resuscitate; E87.5 Hyperkalemia; C61 Malignant neoplasm of prostate; Z68.26 Body mass index [BMI] 26.0-26.9, adult; Z87.11 Personal history of peptic ulcer disease; R15.9 Full incontinence of feces; K40.20 Bilateral inguinal hernia, without obstruction or gangrene, not specified as recurrent; I95.9 Hypotension, unspecified; R63.0 Anorexia; R31.9 Hematuria, unspecified; B96.1 Klebsiella pneumoniae [K. pneumoniae] as the cause of diseases classified elsewhere; B96.4 Proteus (mirabilis) (morganii) as the cause of diseases classified elsewhere
CPT/HCPCS: 36415; 36600; 71045; 74174; 80048; 80053; 81001; 82272; 82378; 82607; 82746; 82803; 83690; 83735; 83880; 84153; 84154; 85014; 85018; 85025; 85027; 85610; 85730; 86850; 86900; 86901; 87077; 87086; 87181; 87633; 93005; 94640; 96361; 96374; 96375; 96376; 97162; 97166; 97530; 97535; 99285; 99291; A9270; G0378; G0480; J1170; J3411; Q9967; 80320; 86920; 87338

== ENCOUNTER 2023-04-26 15:41 | Outpatient (CLI) | payer MEDICARE, OTHER | END 2023-04-26 15:42 | disposition home or self-care (01) | LOC: LAB.R 15:41 | PROVIDERS: ATTEND Registered Nurse | DX: K92.1 Melena (principal); I10 Essential (primary) hypertension | CPT/HCPCS: 80053; 85025 ==

== ENCOUNTER 2023-04-27 10:19 | Outpatient (CLI) | payer MEDICARE, OTHER ==
--- NOTE | 2023-04-27 13:26 | XRAY Report ---
PROCEDURE: Chest 2 View X-Ray INDICATIONS: PNEUMONIA TECHNIQUE: 2 views of the chest were acquired. COMPARISON: Chest x-ray, 04/15/2023. FINDINGS: Surgical changes and devices: None. Lungs and pleura: There is a masslike density in the retrocardiac area, likely secondary to left low er lobe consolidation. No pleural effusions or pneumothorax. Bilateral interstitial edema consistent with superimposed pulmonary edema. Mediastinum: Mediastinal contours appear normal. Heart is moderately enlarged. Bones and chest wall: No suspicious bony lesions. Overlying soft tissues appear unremarkable. IMPRESSION: 1. Left lower lobe consolidation consistent with pneumonia. Recommend follow-up to resolution. If cli nically indicated, consider chest CT for further evaluation. 2. Suspect superimposed CHF. Reviewed by: Shagufta Vera MD on 04/27/2023 1:24 PM PDT Approved by: Shagufta Vera MD on 04/27/2023 1:24 PM PDT Station ID: [id number]
[2023-04-27 15:47] LABS: BASOPHILS % (AUTO) 0.2 %; EOSINOPHILS # (AUTO) 0.2 10^3/uL (0.0-0.7); EOSINOPHILS % (AUTO) 1.2 %; HCT - HEMATOCRIT 26.2 % (42.0-52.0); LYMPHOCYTES # (AUTO) 0.5 10^3/uL (1.5-3.5); MEAN CORPUSCULAR HEMOGLOBIN 35.1 pg (27.0-31.0); MEAN CORPUSCULAR HGB CONC 30.5 g/dL (32.0-36.0); MEAN CORPUSCULAR VOLUME 114.9 fL (80.0-94.0); MEAN PLATELET VOLUME 9.5 fL (7.4-11.4); MONOCYTES # (AUTO) 1.3 10^3/uL (0.0-1.0); NEUTROPHILS # (AUTO) 10.4 10^3/uL (1.5-6.6); NEUTROPHILS % (AUTO) 82.4 %; NRBC ABSOLUTE COUNT (AUTO) 0.08 x10^3/uL; NUCLEATED RED BLOOD CELLS AUTO 0.6 /100WBC; PLT - PLATELET COUNT 211 10^3/uL (130-450); RED BLOOD COUNT 2.28 10^6/uL (4.70-6.10); RED CELL DISTRIBUTION WIDTH 15.4 % (12.0-15.0); WHITE BLOOD COUNT 12.6 x10^3/uL (4.8-10.8)
[2023-04-27 16:00] LABS: ALBUMIN 2.7 g/dL (3.2-5.5); ALBUMIN/GLOBULIN RATIO 1.4 (1.0-2.2); BILIRUBIN,TOTAL 0.4 mg/dL (0.2-1.0); CALCIUM 10.3 mg/dL (8.5-10.3); POTASSIUM 3.7 mmol/L (3.5-4.5); TOTAL PROTEIN 4.7 g/dL (6.4-8.9)
[2023-04-27 16:21] LABS: PLATELET ESTIMATE, MANUAL NORMAL (130-450,000) (NORMAL); PLATELET MORPHOLOGY NORMAL APPEARANCE (NORMAL); SLIDE REVIEW? Indicated
== END 2023-04-27 10:20 | disposition home or self-care (01) ==
LOC: DI 10:19
PROVIDERS: ATTEND Registered Nurse
DX: R06.89 Other abnormalities of breathing (principal); R91.8 Other nonspecific abnormal finding of lung field; F10.10 Alcohol abuse, uncomplicated; D62 Acute posthemorrhagic anemia
CPT/HCPCS: 36415; 80053; 85025

== ENCOUNTER 2023-04-28 14:45 | Inpatient (IN) | payer MEDICARE, OTHER ==
[2023-04-28] MEDS ORDERED: SODIUM CHLORIDE 0.9% 1,000 ML IV STA ×2 (14:53→16:24)
--- NOTE | 2023-04-28 14:56 | ED Physician Documentation ---
History of Present Illness - Stated complaint Stated Complaint: LOW BP/PNA - History obtained from History obtained from: Patient, EMS - Additonal information Additional information: 88-year-old gentleman who was admitted to the hospital on April 15. Initially was found to have GI bleeding, metastatic cancer of unclear primary, likely prostate and COPD exacerbation. He was sent to [facility] on levofloxacin for UTI and COPD exacerbation. For reasons not clearly reported to me, he finished the levofloxacin yesterday and was thought to have pneumonia. He had a chest x- ray done yesterday which showed left lower lobe pneumonia and today was to start Augmentin and doxycycline. It was reported that he got the medications, and then had low blood pressures in the range of 90/60, that said EMS says he had not gotten the new medications yet. On arrival his blood pressure is better. He feels weak but has no other specific complaints. He is noted to be tachypneic but says he is not more short of breath than normal. Room air oxygen is 88% but he does wear oxygen as needed at the SNF. He denies fevers. PD PAST MEDICAL HISTORY - Past Medical History Cardiovascular: Hypertension Respiratory: COPD, Shortness of breath, Other Neuro: None Endocrine/Autoimmune: None GI: GI bleed : Benign prostate hypertrophy, Indwelling catheter HEENT: Chronic vision loss Psych: None Musculoskeletal: Osteoarthritis, Scoliosis, Chronic back pain Derm: None - Past Surgical History Past Surgical History: No - Present Medications Home Medications: Ambulatory Orders Medication Instructions Recorded Confirmed Tamsulosin [Flomax] 0.4 mg PO DAILY 04/15/23 04/15/23 Acetaminophen [Tylenol] 650 mg PO TID #90 tab 04/20/23 Benzonatate [Tessalon] 100 mg PO TID PRN #30 cap 04/20/23 Ipratropium/Albuterol [Duoneb] 3 ml INH RTQID PRN #60 ea 04/20/23 Metoprolol Tartrate [Lopressor] 25 mg PO BID #60 tab 04/20/23 Montelukast [Singulair] 10 mg PO QPM #30 tab 04/20/23 Multivitamin W/Minerals [Theragran 1 tab PO DAILYWM #30 tab 04/20/23 M] Pantoprazole [Protonix] 40 mg PO BID #60 tab 04/20/23 Thiamine [Vitamin B-1] 100 mg PO DAILY #30 tablet 04/20/23 cefTRIAXone [Rocephin 2 gram] 2 gm IV ONCE #1 each 04/20/23 levoFLOXacin [Levofloxacin] 750 mg PO DAILY #7 tablet 04/20/23 methylPREDNISolone [Medrol Dose 1 each PO .PACKAGEINSTRUCTIONS 6 04/20/23 Pack] Days #1 each oxyCODONE [Roxicodone] 5 mg PO Q6HR PRN #10 tab 04/20/23 - Allergies Allergies/Adverse Reactions: Allergies Allergy/AdvReac Type Severity Reaction Status Date / Time No Known Drug Allergies Allergy Verified 04/28/23 14:50 - Social History Does the pt smoke?: No Smoking Status: Former smoker Does the pt drink ETOH?: Yes Does the pt have substance abuse?: No - POLST Patient has POLST: No POLST Status: DNR PD ED PE NORMAL - Vitals Vital signs reviewed: Yes - General General: Other (He does appear ill and tachypneic and slow to answer questions.) - HEENT HEENT: PERRL, EOMI - Neck Neck: Supple, no meningeal sign, No bony TTP - Cardiac Cardiac: RRR, No murmur - Respiratory Respiratory: Other (Tachypneic with rhonchi at right greater than left bases) - Abdomen Abdomen: Soft, Non tender - Extremities Extremities: No edema, No calf tenderness / cord Results - Vitals Vitals: Vital Signs - 24 hr 04/28/23 04/28/23 04/28/23 14:50 14:56 15:18 Temperature 36.5 C 36.5 C Heart Rate 96 96 96 Respiratory 24 24 28 H Rate Blood Pressure 91/59 L 91/59 L 88/58 L O2 Saturation 92 94 92 If not protocol 2 2 : Oxygen Flow, liters/minute 04/28/23 04/28/23 04/28/23 15:30 16:00 16:43 Temperature Heart Rate 90 Respiratory 28 H Rate Blood Pressure 95/53 L 95/53 L 92/52 L O2 Saturation 98 If not protocol 2 : Oxygen Flow, liters/minute 04/28/23 04/28/23 04/28/23 17:00 17:20 17:22 Temperature Heart Rate 101 H Respiratory 26 H Rate Blood Pressure 96/59 L O2 Saturation 97 89 L 98 If not protocol 2 2 : Oxygen Flow, liters/minute 04/28/23 17:51 Temperature Heart Rate 107 H Respiratory 26 H Rate Blood Pressure 107/62 O2 Saturation 98 If not protocol 2 : Oxygen Flow, liters/minute Oxygen O2 Source Nasal cannula - Labs Labs: Laboratory Tests 04/28/23 04/28/23 04/28/23 15:09 15:09 15:09 WBC 13.8 H RBC 2.06 L Hgb 7.1 L Hct 23.3 L MCV 113.1 H MCH 34.5 H MCHC 30.5 L RDW 15.3 H Plt Count 193 MPV 9.0 Neut # (Auto) 10.7 H Lymph # (Auto) 1.2 L A[place]ac # (Auto) 1.5 H Eos # (Auto) 0.2 Baso # (Auto) 0.0 Absolute Nucleated RBC 0.05 Nucleated RBC % 0.4 Manual Slide Review Indicated Platelet Estimate NORMAL (130-450,000) Platelet Morphology NORMAL APPEARANCE RBC Morph Micro Appear 1+ POLYCHROMASIA Sodium 136 Potassium 3.7 Chloride 101 Carbon Dioxide 32 Anion Gap 3.0 L BUN 30 H Creatinine 1.0 Estimated GFR (MDRD) 71 L Glucose 107 H Lactic Acid 1.5 Calcium 9.9 Total Bilirubin 0.4 AST 12 ALT 9 L Alkaline Phosphatase 206 H Total Protein 4.6 L Albumin 2.6 L Globulin 2.0 L Albumin/Globulin Ratio 1.3 Urine Color Urine Clarity Urine pH Ur Specific Lerona Urine Protein Urine Glucose (UA) Urine Ketones Urine Occult Blood Urine Nitrite Urine Bilirubin Urine Urobilinogen Ur Leukocyte Esterase Urine RBC Urine WBC Ur Squamous Epith Cells Urine Bacteria Urine Culture Comments 04/28/23 15:15 WBC RBC Hgb Hct MCV MCH MCHC RDW Plt Count MPV Neut # (Auto) Lymph # (Auto) Arenac # (Auto) Eos # (Auto) Baso # (Auto) Absolute Nucleated RBC Nucleated RBC % Manual Slide Review Platelet Estimate Platelet Morphology RBC Morph Micro Appear Sodium Potassium Chloride Carbon Dioxide Anion Gap BUN Creatinine Estimated GFR (MDRD) Glucose Lactic Acid Calcium Total Bilirubin AST ALT Alkaline Phosphatase Total Protein Albumin Globulin Albumin/Globulin Ratio Urine Color YELLOW Urine Clarity CLEAR Urine pH 6.0 Ur Specific Lerona 1.025 Urine Protein 30 H Urine Glucose (UA) NEGATIVE Urine Ketones NEGATIVE Urine Occult Blood MODERATE H Urine Nitrite NEGATIVE Urine Bilirubin NEGATIVE Urine Urobilinogen 0.2 (NORMAL) Ur Leukocyte Esterase SMALL H Urine RBC 6-10 H Urine WBC 6-10 H Ur Squamous Epith Cells RARE Squamous Urine Bacteria Rare Urine Culture Comments INDICATED PD Medical Decision Making - ED course ED course: 88-year-old gentleman with recent diagnosis of likely metastatic cancer presents with worsening of his symptoms, chills, and hypotension. Work-up in the emergency department demonstrates stable but significant anemia, he was reportedly guaiac negative on his last visit. He has a leukocytosis. His CMP demonstrates a BUN of 30 which is elevated consistent with prerenal azotemia, lactate normal. Alkaline phosphatase up, likely from osseous metastatic disease. Discussed findings of work-up with patient and son, he has had a significant decline over the last 2 weeks despite being on antibiotics and now is technically septic with likely stage IV metastatic disease, unsure if the primary would be prostate or lung, they would still like aggressive treatment with curative intent and he was cultured up and given Zosyn with plan to put him in the hospital. Care to Dr. Cole at 6 PM shift change to arrange for hospitalist admission after their shift change at 7 PM. - Critical Care Time(min): 40 Time Includes: Direct patient care, Review records, Reassess patient, Document care, Coordinate care, Family consult for tx dec Data interpretation: Labs, Pulse ox Procedures included in critical care time: Peripheral IV Departure - Departure Disposition: 66 [facility] DC/Xfer Clinical Impression: Lesion of lung, Enlarged prostate Sepsis Qualifiers: Sepsis type: sepsis due to unspecified organism Sepsis acute organ dysfunction status: without acute organ dysfunction Qualified Code(s): A41.9 - Sepsis, unspecified organism Condition: Serious
[2023-04-28 15:18] LABS: BASOPHILS % (AUTO) 0.1 %; EOSINOPHILS # (AUTO) 0.2 10^3/uL (0.0-0.7); EOSINOPHILS % (AUTO) 1.7 %; HCT - HEMATOCRIT 23.3 % (42.0-52.0); HGB - HEMOGLOBIN 7.1 g/dL (14.0-18.0); LYMPHOCYTES # (AUTO) 1.2 10^3/uL (1.5-3.5); LYMPHOCYTES % (AUTO) 8.3 %; MEAN CORPUSCULAR HEMOGLOBIN 34.5 pg (27.0-31.0); MEAN CORPUSCULAR HGB CONC 30.5 g/dL (32.0-36.0); MEAN CORPUSCULAR VOLUME 113.1 fL (80.0-94.0); MONOCYTES # (AUTO) 1.5 10^3/uL (0.0-1.0); MONOCYTES % (AUTO) 10.7 %; NEUTROPHILS # (AUTO) 10.7 10^3/uL (1.5-6.6); NEUTROPHILS % (AUTO) 77.4 %; NRBC ABSOLUTE COUNT (AUTO) 0.05 x10^3/uL; NUCLEATED RED BLOOD CELLS AUTO 0.4 /100WBC; PLT - PLATELET COUNT 193 10^3/uL (130-450); RED BLOOD COUNT 2.06 10^6/uL (4.70-6.10); RED CELL DISTRIBUTION WIDTH 15.3 % (12.0-15.0); WHITE BLOOD COUNT 13.8 x10^3/uL (4.8-10.8)
--- NOTE | 2023-04-28 15:25 | XRAY Report ---
PROCEDURE: Chest 1 View X-Ray INDICATIONS: pna TECHNIQUE: One view of the chest was acquired. COMPARISON: None. FINDINGS: Surgical changes and devices: None. Lungs and pleura: Perihilar airspace opacities, increased pulmonary markings. Moderate pleural effus ions. Mediastinum: Cardiomegaly. Bones and chest wall: No suspicious bony lesions. Overlying soft tissues appear unremarkable. IMPRESSION: Severe pulmonary edema versus infection or acute lung injury. Moderate pleural effusions. Reviewed by: Matheus Dey on 04/28/2023 3:23 PM PDT Approved by: Matheus Dey on 04/28/2023 3:23 PM PDT Station ID: [id number]
[2023-04-28 15:27] LABS: BILIRUBIN,URINE NEGATIVE (NEGATIVE); GLUCOSE, URINE (UA) NEGATIVE (NEGATIVE); KETONES,URINE (UA) NEGATIVE (NEGATIVE); LEUKOCYTE ESTERASE, URINE SMALL (NEGATIVE); NITRITE,URINE NEGATIVE (NEGATIVE); OCCULT BLOOD,URINE MODERATE (NEGATIVE); PROTEIN,URINE 30 mg/dL (NEGATIVE); UROBILINOGEN,URINE 0.2 (NORMAL) E.U./dL (NORMAL)
[2023-04-28 15:31] LABS: BACTERIA,URINE Rare /HPF (None Seen); CLARITY,URINE CLEAR (CLEAR); SQUAMOUS EPITHELIAL CELL,UR RARE Squamous (<= Few)
[2023-04-28 15:32] LABS: ALBUMIN 2.6 g/dL (3.2-5.5); ALBUMIN/GLOBULIN RATIO 1.3 (1.0-2.2); BILIRUBIN,TOTAL 0.4 mg/dL (0.2-1.0); CALCIUM 9.9 mg/dL (8.5-10.3); POTASSIUM 3.7 mmol/L (3.5-4.5); TOTAL PROTEIN 4.6 g/dL (6.4-8.9)
[2023-04-28 15:48] LABS: PLATELET ESTIMATE, MANUAL NORMAL (130-450,000) (NORMAL); PLATELET MORPHOLOGY NORMAL APPEARANCE (NORMAL); SLIDE REVIEW? Indicated
[2023-04-28] MEDS ORDERED: PIPERACILLIN/TAZOBACTAM 4.5 GM in SODIUM CHLORIDE 0.9% MINIBAG 100 ML IV STA (17:18)
--- NOTE | 2023-04-28 17:48 | CT Report ---
PROCEDURE: CHEST W INDICATIONS: reeval necrotic pna vs lung ca CONTRAST: 100ml omni 300 TECHNIQUE: After the administration of intravenous contrast, 1 mm axial images were acquired from the pulmonary apices through the posterior costophrenic angles. Axial 5 mm soft tissue kernel reconstructions were performed as well as 8 mm axial MIP and coronal and sagittal 5 mm reformations. For radiation dose reduction, the following was used: automated exposure control, adjustment of mA and/or kV according to patient size. COMPARISON: None. FINDINGS: Image quality: Excellent. Lungs and pleura: Left lower lobe mass measuring 6.2 x 4.9 cm. Small pleural effusions. Moderate cent rilobular emphysema. Mild smooth interstitial thickening and bronchial thickening. Mediastinum: Heart size is normal. No pericardial effusion. No large vessel abnormality. Mediastinal adenopathy, with heterogeneous attenuation most consistent with central necrosis. For instance, the 2 .3 cm round left paraesophageal node (series 2, image 17). Moderate hiatal hernia. Chest wall and lower neck: Thyroid is unremarkable. Enlarged left supraclavicular fossa lymph node me asuring 1.2 cm short access (series 2, image 7) Bones: Diffuse osseous metastatic disease. No pathologic fracture. Upper Abdomen: Hepatic and renal cysts. IMPRESSION: 6.2 x 4.9 cm left lower lobe mass. Associated mediastinal and left supraclavicular fossa adenopathy. Diffuse osseous metastatic disease without pathologic fracture. Small pleural effusions and mild pulmonary edema. Reviewed by: Matheus Dey on 04/28/2023 5:47 PM PDT Approved by: Matheus Dey on 04/28/2023 5:47 PM PDT Station ID: [id number]
[2023-04-28] MEDS ORDERED: iohexoL-300 100 ML VIAL IVP ONE (18:52)
[2023-04-28] MEDS ORDERED: SODIUM CHLORIDE 0.9% 500 ML IV STA (19:18)
[2023-04-28] MEDS: NOREPINEPHRINE/0.9 % NS 8 MG/250 ML BAG IV SCH (19:49)
[2023-04-28] MEDS ORDERED: IPRATROPIUM/ALBUTEROL 3 ML NEB INH PRN (21:22)
[2023-04-28] MEDS ORDERED: BENZONATATE 100 MG CAPSULE PO PRN (21:22)
[2023-04-28] MEDS: PANTOPRAZOLE 40 MG TABLET PO SCH (21:30)
--- NOTE | 2023-04-28 21:37 | ED Physician Documentation ---
ED Addendum - Addendum Addendum: Patient signed out to me by Dr. Rahman at shift change pending admission. At around 7:15 PM the evening RN notified me that patient's blood pressure has dropped. This is after having had 2 L of IV fluids. I confirmed with patient and his son that he is a full code and wants all interventions done including placement of a central line and ICU level of care. He has also had increased oxygen requirements to 4 L. Additionally ordered 500 cc of IV fluids and will start Levophed while I place a central line. Patient and son gave consent for central line placement. 2005 - Discussed with tele hospitalist who will admit to ICU for further management. Procedures - Central Line - Major Central Line Preparation: Consent Obtained, Time out completed, Ultrasound used, Sterile prep and drape Central line location: Right Femoral (Pt unable to lay reclined for IJ placement) Central line type: Triple lumen Central line aftercare: Chlorhexidine disc placed, Secured, No complications, Pt tolerated well Departure - Departure Disposition: 66 [facility] DC/Xfer Clinical Impression: Lesion of lung, Enlarged prostate, Septic shock, Pneumonia Condition: Critical Forms: PCP List
[2023-04-28 21:41] LABS: CORONAVIRUS 229E-RESP PCR NOT DETECTED; CORONAVIRUS HKU1-RESP PCR NOT DETECTED; CORONAVIRUS NL63-RESP PCR NOT DETECTED
[2023-04-28 21:42] LABS: B. PARAPERTUSSIS- RESP PCR PAN NOT DETECTED; B. PERTUSSIS- RESP PCR PANEL NOT DETECTED; C. PNEUMONIAE- RESP PCR PANEL NOT DETECTED; CORONAVIRUS OC43-RESP PCR NOT DETECTED; HUMAN METAPNEUMOVIRUS NOT DETECTED; INFLUENZA A- RESP PCR PANEL NOT DETECTED; INFLUENZA B - RESP PCR PANEL NOT DETECTED; M. PNEUMONIAE- RESP PCR PANEL NOT DETECTED; PARAINFLUENZA VIRUS 1 NOT DETECTED; PARAINFLUENZA VIRUS 2 NOT DETECTED; PARAINFLUENZA VIRUS 3 NOT DETECTED; PARAINFLUENZA VIRUS 4 NOT DETECTED; RHINOVIRUS/ENTEROVIRUS NOT DETECTED; RSV- RESP PCR PANEL NOT DETECTED; SARS-CoV-2 -RESP PCR PANEL NOT DETECTED
[2023-04-28] MEDS ORDERED: ONDANSETRON 4 MG/2 ML VIAL IVP PRN (21:49)
[2023-04-28] MEDS ORDERED: ACETAMINOPHEN 325 MG TABLET PO PRN (21:49)
[2023-04-28] MEDS: CEFEPIME 2 GM in SODIUM CHLORIDE 0.9% MINIBAG 100 ML IV SCH (22:03)
[2023-04-28] MEDS: LACTATED RINGERS 1,000 ML IV SCH (22:03)
[2023-04-28] MEDS ORDERED: VANCOMYCIN INJ 1.75 GM in SODIUM CHLORIDE 0.9% 500 ML IV SCH (23:00)
[2023-04-29] MEDS: SODIUM CHLORIDE FLUSH 0.9% 10 ML SYRINGE IVP SCH ×3 (02:13→17:37)
--- NOTE | 2023-04-29 02:59 | HISTORY & PHYSICAL EXAMINATION ---
Chief Complaint - Chief Complaint Chief Complaint: sob History of Present Illness - History of Present Illness HPI Comment/Other: pt with continued sob and generalized malaise. he had completed a course of levaquin as outpt for uti and pna, and then was prescribed augmentin and also doxycycline d/t continued pna. he has h/o copd and there is concern for malignancy, pending evaluation as outpt. no reported fevers. no chest pain. some nausea, no vomiting. some abdominal cramping. History - Past Medical History Cardiovascular: reports: Hypertension Respiratory: reports: COPD, Shortness of breath, Other Neuro: reports: None Endocrine/Autoimmune: reports: None GI: reports: GI bleed : reports: Benign prostate hypertrophy, Indwelling catheter HEENT: reports: Chronic vision loss Psych: reports: None Musculoskeletal: reports: Osteoarthritis, Scoliosis, Chronic back pain Derm: reports: None MRSA Hx?: No - Family & Social History Family History Comment/Other: Mom and dad of heart disease respectively at the age of 78 and 80. 2 brothers are . 1 of prostate cancer. He does not know what the second 1 of. His sister is healthy. 2 sons. Both healthy. 1 daughter? is healthy. Living Situation: Alone (Son lives on same property in his own trailer) Social History Notes: Born in [place]. Ended up at [facility] because his dad was in the [employer]. 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 Started smoking at the age of 18 and smoked until the age of 62. Sometimes 2 packs/day. Does not feel he has an alcohol problem. Does not really share with me how much he drinks on direct questioning. is for 5 years. Lives in his own home. Son has a separate trailer on the property nearby.. - Substance History Use: Uses substance without health or social issues: Alcohol - POLST Patient has POLST: No POLST Status: DNR Meds/Allgy - Home Medications Home Medications: Ambulatory Orders Medication Instructions Recorded Confirmed Tamsulosin [Flomax] 0.4 mg PO DAILY 04/15/23 04/15/23 Acetaminophen [Tylenol] 650 mg PO TID #90 tab 04/20/23 Benzonatate [Tessalon] 100 mg PO TID PRN #30 cap 04/20/23 Ipratropium/Albuterol [Duoneb] 3 ml INH RTQID PRN #60 ea 04/20/23 Metoprolol Tartrate [Lopressor] 25 mg PO BID #60 tab 04/20/23 Montelukast [Singulair] 10 mg PO QPM #30 tab 04/20/23 Multivitamin W/Minerals [Theragran 1 tab PO DAILYWM #30 tab 04/20/23 M] Pantoprazole [Protonix] 40 mg PO BID #60 tab 04/20/23 Thiamine [Vitamin B-1] 100 mg PO DAILY #30 tablet 04/20/23 cefTRIAXone [Rocephin 2 gram] 2 gm IV ONCE #1 each 04/20/23 levoFLOXacin [Levofloxacin] 750 mg PO DAILY #7 tablet 04/20/23 methylPREDNISolone [Medrol Dose 1 each PO .PACKAGEINSTRUCTIONS 6 04/20/23 Pack] Days #1 each oxyCODONE [Roxicodone] 5 mg PO Q6HR PRN #10 tab 04/20/23 - Allergies Allergies/Adverse Reactions: Allergies Allergy/AdvReac Type Severity Reaction Status Date / Time No Known Drug Allergies Allergy Verified 04/28/23 14:50 Review of Systems - Other Findings Other Findings: 14 pt review done with repeated, simple questioning. positives per hpi; all others reviewed as negative Exam - Vital Signs Vital Signs: Vital Signs x48h Temp Pulse Pulse Resp BP BP Pulse Ox 04/29/23 02:00 115 H 28 H 112/50 L 95 04/29/23 01:00 115 H 24 110/60 95 04/29/23 00:49 99/63 04/29/23 00:40 109/65 04/29/23 00:30 97/48 L 04/29/23 00:00 106 H 20 93/56 L 94 04/28/23 23:21 36.8 C 108 H 22 103/64 92 04/28/23 22:40 04/28/23 21:31 82 20 99/64 100 04/28/23 20:58 101 H 17 98/59 L 100 04/28/23 20:26 100 17 108/74 100 04/28/23 19:50 105 H 24 88/62 L 98 04/28/23 19:16 86 84/43 L 04/28/23 19:15 37 C 73 20 78/47 L 96 O2 Flow Rate 04/29/23 02:00 4 04/29/23 01:00 4 04/29/23 00:49 04/29/23 00:40 04/29/23 00:30 04/29/23 00:00 4 04/28/23 23:21 6 04/28/23 22:40 3 04/28/23 21:31 04/28/23 20:58 3 04/28/23 20:26 4 04/28/23 19:50 4 04/28/23 19:16 04/28/23 19:15 3 - Physical Exam Comments/Other: gen - awake, alert, not fully oriented but can answer simple questions, nad heent - eomi, nc/at heart - per ED charting lungs - per ED charting abd - soft, nt msk - no acute trauma noted Conclusion/Plan - Lab Results Fish Bones: 04/28/23 15:09 04/28/23 15:09 - Other Other Results/Comments: pt with - - sepsis in setting of pna (below) infection, low bp, tachycardia mgmt details below - hypotension d/t sepsis on levophed drip + ivf monitor for now - acute, hypoxemic resp failure in setting pna (below) + copd exacerbation on O2 supportive mgmt - pna treat as complex, hcap vanc + cefepime ordered resp viral panel negative - malignancy noted on imaging and also with elevated alk phos will need outpt onc and pulm evaluation - uti in setting of above continue antibiotics per above f/u cultures f/u labs, cultures, replete electrolytes further orders per clinical course
[2023-04-29 05:26] LABS: BASOPHILS % (AUTO) 0.2 %; EOSINOPHILS # (AUTO) 0.1 10^3/uL (0.0-0.7); EOSINOPHILS % (AUTO) 0.4 %; HCT - HEMATOCRIT 24.6 % (42.0-52.0); HGB - HEMOGLOBIN 7.5 g/dL (14.0-18.0); LYMPHOCYTES # (AUTO) 0.5 10^3/uL (1.5-3.5); LYMPHOCYTES % (AUTO) 2.7 %; MEAN CORPUSCULAR HGB CONC 30.5 g/dL (32.0-36.0); MEAN PLATELET VOLUME 9.2 fL (7.4-11.4); MONOCYTES # (AUTO) 1.6 10^3/uL (0.0-1.0); MONOCYTES % (AUTO) 9.4 %; NEUTROPHILS # (AUTO) 14.5 10^3/uL (1.5-6.6); NEUTROPHILS % (AUTO) 85.2 %; NRBC ABSOLUTE COUNT (AUTO) 0.04 x10^3/uL; NUCLEATED RED BLOOD CELLS AUTO 0.2 /100WBC; PLT - PLATELET COUNT 196 10^3/uL (130-450); RED BLOOD COUNT 2.14 10^6/uL (4.70-6.10); RED CELL DISTRIBUTION WIDTH 15.2 % (12.0-15.0)
[2023-04-29 05:39] LABS: PARTIAL THROMBOPLASTIN TIME 23.2 secs (24.9-33.3)
[2023-04-29 05:43] LABS: INR 1.4 (0.8-1.2)
[2023-04-29] MEDS: CEFEPIME 2 GM in SODIUM CHLORIDE 0.9% MINIBAG 100 ML IV SCH (05:45)
[2023-04-29 05:59] LABS: ALBUMIN 2.7 g/dL (3.2-5.5); ALBUMIN/GLOBULIN RATIO 1.3 (1.0-2.2); BILIRUBIN,TOTAL 0.4 mg/dL (0.2-1.0); CALCIUM 9.9 mg/dL (8.5-10.3); CREATININE 0.9 mg/dL (0.6-1.3); MAGNESIUM 1.7 mg/dL (1.7-2.3); PHOSPHORUS 3.3 mg/dL (2.5-5.0); TOTAL PROTEIN 4.8 g/dL (6.4-8.9)
[2023-04-29 06:02] LABS: CALCIUM, IONIZED 1.4 mmol/L (1.15-1.33); VBG PH 7.343 (7.31-7.41)
[2023-04-29] MEDS ORDERED: MAGNESIUM SULFATE 2 GRAM 2 GM/50 ML BAG IV ONE (06:31)
[2023-04-29 07:28] LABS: RBC MORPHOLOGY (MULTIPLE) 1+ MACROCYTOSIS (NORMAL)
[2023-04-29 07:29] LABS: PLATELET ESTIMATE, MANUAL NORMAL (130-450,000) (NORMAL); PLATELET MORPHOLOGY NORMAL APPEARANCE (NORMAL)
[2023-04-29 07:30] LABS: DIFFERENTIAL COMMENT MANUAL=AUTO DIFF; WBC MORPHOLOGY (MULTIPLE) NORMAL APP (NORMAL)
[2023-04-29] MEDS ORDERED: guaiFENesin/DEXTROMETHORPHAN 10 ML UDC PO PRN (07:43)
--- NOTE | 2023-04-29 07:44 | PROVIDER PROGRESS NOTE ---
Subjective - Prog Note Date Prog Note Date: 04/29/23 - Subjective Pt reports feeling: No change (Patient is still on vasopressor, still tachycardic and tachypnea oxy mask for oxygen support. Patient Opens eyes to voice, still has strong cough, however cannot bring up sputum) Subjective: An 88 years old male with history of hypertension, COPD, with possible lung malignancy pending outpatient evaluation recent GI bleed, BPH with chronic Lopez, osteoarthrosis, chronic back pain. 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 Also had a COPD exacerbation. He was sent to [facility] levofloxacin for UTI and COPD exacerbation. Patient was brought in by EMS due to chest x-ray showed left lower lobe pneumonia, was started on Augmentin and doxycycline. Per EMS, patient blood pressure was 90/60. On arrival to ED patient was tachypnea, oxygen saturation 88% on room air. patient reports nausea, no vomiting some abdominal cramping. No fever no chest pain Patient was started on Levophed on 04/28/2023 around 2100., was admitted to ICU Current Medications - Current Medications Current Medications: Active Medications Acetaminophen (Acetaminophen 325 Mg Tablet) 650 mg PO Q6H PRN PRN Reason: Pain 1 to 4, or Fever Albuterol/Ipratropium (Ipratropium/Albuterol 3 Ml Neb) 3 ml INH RTQID PRN PRN Reason: Shortness of Air/Wheezing Ascorbic Acid (Ascorbic Acid 500 Mg Tablet) 500 mg PO DAILY [facility] Last Admin: 04/29/23 10:22 Dose: Not Given Benzonatate (Benzonatate 100 Mg Capsule) 100 mg PO TID PRN PRN Reason: Cough Guaifenesin (Guaifenesin 600 Mg Tablet) 600 mg PO BID [facility] Last Admin: 04/29/23 10:23 Dose: Not Given Guaifenesin (Guaifenesin/Dextromethorphan 10 Ml Udc) 10 ml PO Q6HR PRN PRN Reason: Cough NOREPINEPHRINE/0.9 % NS (Levophed 8 Mg/250-0.9% Nacl) 8 mg in 250 mls @ 15 mls/hr IV .[id number] [facility]; Protocol Last Titration: 04/29/23 06:57 Dose: 7 mcg/min, 13.125 mls/hr Lactated Ringer's (Lr) 1,000 mls @ 75 mls/hr IV .[id number] [facility] Last Admin: 04/29/23 09:51 Dose: 75 mls/hr Piperacillin Sod/Tazobactam (Sod 4.5 gm/ Sodium Chloride) 100 mls @ 25 mls/hr IV Q8H [facility] Multivitamins/Minerals (Multivitamin W/Minerals Tablet) 1 tab PO DAILYWM [facility] Last Admin: 04/29/23 10:20 Dose: Not Given Nicotine (Nicotine 21 Mg Patch) 1 patch TOP DAILY [facility] Last Admin: 04/29/23 09:50 Dose: 1 patch Ondansetron HCl (Ondansetron 4 Mg/2 Ml Vial) 4 mg IVP Q6HR PRN PRN Reason: Nausea / Vomiting Last Admin: 04/28/23 22:04 Dose: 4 mg Pantoprazole Sodium (Pantoprazole 40 Mg Tablet) 40 mg PO BID [facility] Last Admin: 04/29/23 10:23 Dose: Not Given Saccharomyces Boulardii (Saccharomyces Boulardii 250 Mg Capsule) 250 mg PO BI DWM [facility] Last Admin: 04/29/23 10:24 Dose: Not Given Sodium Chloride (Sodium Chloride Flush 0.9% 10 Ml Syringe) 10 ml IVP 0100,0900,1700 [facility] Last Admin: 04/29/23 10:36 Dose: 10 ml Sodium Chloride (Sodium Chloride Flush 0.9% 10 Ml Syringe) 10 ml IVP PRN PRN PRN Reason: NEEDED PER PROVIDER ORDERS Tamsulosin HCl (Tamsulosin 0.4 Mg Capsule) 0.4 mg PO DAILY [facility] Last Admin: 04/29/23 10:24 Dose: Not Given Thiamine HCl (Thiamine 100 Mg Tablet) 100 mg PO DAILY [facility] Last Admin: 04/29/23 10:25 Dose: Not Given Tamsulosin [Flomax] 0.4 mg PO DAILY 04/15/23 Objective - Vital Signs/Intake & Output Reviewed Vital Signs: Yes Vital Signs: Vital Signs Temp Pulse Resp BP Pulse Ox O2 Flow Rate 04/29/23 07:00 121 H 32 H 99/51 L 95 7 04/29/23 06:58 116 H 33 H 101/54 L 93 9 04/29/23 06:55 116 H 34 H 85/50 L 92 7 10/28/23 06:53 116 H 33 H 85/48 L 92 7 04/29/23 06:50 117 H 33 H 89/50 L 91 L 7 04/29/23 06:40 120 H 25 H 109/58 L 96 7 04/29/23 06:30 130 H 26 H 115/58 L 95 7 04/29/23 06:00 36.5 C 131 H 27 H 93/63 98 7 04/29/23 05:00 115 H 27 H 100/54 L 93 4 04/29/23 04:00 114 H 27 H 93/53 L 93 4 Intake & Output: Intake & Output 04/26/23 04/27/23 04/28/23 04/29/23 23:59 23:59 23:59 23:59 Intake Total 2713.688 654.687 Output Total 500 450 Balance 2213.688 204.687 - Objective General Appearance: positive: Moderate distress (respiratory rate 30 per minut e), Lethargic, Other (Anasarca, especially upper extremities) Eyes Bilateral: positive: Normal inspection, EOMI ENT: positive: No signs of dehydration, Other Neck: positive: Nml inspection. negative: Stiff neck Respiratory: positive: Rales, Rhonchi. negative: Wheezes Cardiovascular: positive: Regular rate & rhythm, Tachycardia Abdomen: positive: No distention Skin: positive: Warm, Dry. negative: Diaphoresis Extremities: positive: Other (Trace edema) Neurologic/Psychiatric: positive: CN's nml (2-12), Other (Lethargic, opens eyes to commands,) - Lab Results Fish Bones: 04/29/23 15:05 04/29/23 04:45 Other Labs: Lab Results x24hrs 04/29/23 04/29/23 04/29/23 Range/Units 04:45 04:45 04:45 WBC (4.8-10.8) x10^3/uL RBC (4.70-6.10) 10^6/uL Hgb (14.0-18.0) g/dL Hct (42.0-52.0) % MCV (80.0-94.0) fL MCH (27.0-31.0) pg MCHC (32.0-36.0) g/dL RDW (12.0-15.0) % Plt Count (130-450) 10^3/uL MPV (7.4-11.4) fL Neut # (Auto) (1.5-6.6) 10^3/uL Lymph # (Auto) (1.5-3.5) 10^3/uL [place]kin # (Auto) (0.0-1.0) 10^3/uL Eos # (Auto) (0.0-0.7) 10^3/uL Baso # (Auto) (0.0-0.1) 10^3/uL Absolute Nucleated RBC x10^3/uL Band Neuts % (Manual) Abnorm Lymph % (Manual) Nucleated RBC % /100WBC Neutrophils # (Manual) Lymphocytes # (Manual) Monocytes # (Manual) Eosinophils # (Manual) Basophils # (Manual) Differential Comment Manual Slide Review WBC Morphology (NORMAL) Platelet Estimate (NORMAL) Platelet Morphology (NORMAL) RBC Morph Micro Appear (NORMAL) PT (9.9-12.6) secs INR (0.8-1.2) APTT (24.9-33.3) secs VBG pH 7.343 (7.31-7.41) Ionized Calcium 1.40 H (1.15-1.33) mmol/L Sodium 138 (135-145) mmol/L Potassium 4.0 (3.5-4.5) mmol/L Chloride 105 (101-111) mmol/L Carbon Dioxide 30 (21-32) mmol/L Anion Gap 3.0 L (6-13) BUN 23 H (6-20) mg/dL Creatinine 0.9 (0.6-1.3) mg/dL Estimated GFR (MDRD) 80 L (>89) Glucose 116 H (74-104) mg/dL Lactic Acid (0.5-2.2) mmol/L Calcium 9.9 (8.5-10.3) mg/dL Phosphorus 3.3 (2.5-5.0) mg/dL Magnesium 1.7 (1.7-2.3) mg/dL Total Bilirubin 0.4 (0.2-1.0) mg/dL AST 12 (10-42) IU/L ALT 8 L (10-60) IU/L Alkaline Phosphatase 213 H (42-121) IU/L Lactate Dehydrogenase 217 (140-271) IU/L Total Protein 4.8 L (6.4-8.9) g/dL Albumin 2.7 L (3.2-5.5) g/dL Globulin 2.1 (2.1-4.2) g/dL Albumin/Globulin Ratio 1.3 (1.0-2.2) Urine Color Urine Clarity (CLEAR) Urine pH (5.0-7.5) PH Ur Specific [place] (1.002-1.030) Urine Protein (NEGATIVE) mg/dL Urine Glucose (UA) (NEGATIVE) mg/dL Urine Ketones (NEGATIVE) mg/dL Urine Occult Blood (NEGATIVE) Urine Nitrite (NEGATIVE) Urine Bilirubin (NEGATIVE) Urine Urobilinogen (NORMAL) E.U./dL Ur Leukocyte Esterase (NEGATIVE) Urine RBC (0-5) /HPF Urine WBC (0-3) /HPF Ur Squamous Epith Cells (<= Few) Urine Bacteria (None Seen) /HPF Urine Culture Comments Nasal Adenovirus (PCR) Nasal B. parapertussis DNA (PCR) Nasal Coronavir 229E PCR Nasal Coronavir HKU1 PCR Nasal Coronavir NL63 PCR Nasal Coronavir OC43 PCR Nasal Enterovir/Rhinovir PCR Nasal Influenza B PCR Nasal Influenza A PCR Nasal Parainfluen 1 PCR Nasal Parainfluen 2 PCR Nasal Parainfluen 3 PCR Nasal Parainfluen 4 PCR Nasal RSV (PCR) Nasal Screen MRSA (PCR) (NEGATIVE) Nasal B.pertussis DNA PCR Nasal C.pneumoniae (PCR) Graham Human Metapneumo PCR Nasal M.pneumoniae (PCR) Nasal SARS-CoV-2 (PCR) 04/29/23 04/29/23 04/28/23 Range/Units 04:45 04:45 23:00 WBC 17.0 H (4.8-10.8) x10^3/uL RBC 2.14 L (4.70-6.10) 10^6/uL Hgb 7.5 L (14.0-18.0) g/dL Hct 24.6 L (42.0-52.0) % MCV 115.0 H (80.0-94.0) fL MCH 35.0 H (27.0-31.0) pg MCHC 30.5 L (32.0-36.0) g/dL RDW 15.2 H (12.0-15.0) % Plt Count 196 (130-450) 10^3/uL MPV 9.2 (7.4-11.4) fL Neut # (Auto) 14.5 H (1.5-6.6) 10^3/uL Lymph # (Auto) 0.5 L (1.5-3.5) 10^3/uL Pitkin # (Auto) 1.6 H (0.0-1.0) 10^3/uL Eos # (Auto) 0.1 (0.0-0.7) 10^3/uL Baso # (Auto) 0.0 (0.0-0.1) 10^3/uL Absolute Nucleated RBC 0.04 x10^3/uL Band Neuts % (Manual) Not Reportable Abnorm Lymph % (Manual) Not Reportable Nucleated RBC % 0.2 /100WBC Neutrophils # (Manual) Not Reportable Lymphocytes # (Manual) Not Reportable Monocytes # (Manual) Not Reportable Eosinophils # (Manual) Not Reportable Basophils # (Manual) Not Reportable Differential Comment MANUAL=AUTO DIFF Manual Slide Review WBC Morphology NORMAL [place]ELY[place] (NORMAL) Platelet Estimate NORMAL (130-450,000) (NORMAL) Platelet Morphology NORMAL APPEARANCE (NORMAL) RBC Morph Micro Appear 1+ MACROCYTOSIS (NORMAL) PT 15.0 H (9.9-12.6) secs INR 1.4 H (0.8-1.2) APTT 23.2 L (24.9-33.3) secs VBG pH (7.31-7.41) Ionized Calcium (1.15-1.33) mmol/L Sodium (135-145) mmol/L Potassium (3.5-4.5) mmol/L Chloride (101-111) mmol/L Carbon Dioxide (21-32) mmol/L Anion Gap (6-13) BUN (6-20) mg/dL Creatinine (0.6-1.3) mg/dL Estimated GFR (MDRD) (>89) Glucose (74-104) mg/dL Lactic Acid (0.5-2.2) mmol/L Calcium (8.5-10.3) mg/dL Phosphorus (2.5-5.0) mg/dL Magnesium (1.7-2.3) mg/dL Total Bilirubin (0.2-1.0) mg/dL AST (10-42) IU/L ALT (10-60) IU/L Alkaline Phosphatase (42-121) IU/L Lactate Dehydrogenase (140-271) IU/L Total Protein (6.4-8.9) g/dL Albumin (3.2-5.5) g/dL Globulin (2.1-4.2) g/dL Albumin/Globulin Ratio (1.0-2.2) Urine Color Urine Clarity (CLEAR) Urine pH (5.0-7.5) PH Ur Specific [place] (1.002-1.030) Urine Protein (NEGATIVE) mg/dL Urine Glucose (UA) (NEGATIVE) mg/dL Urine Ketones (NEGATIVE) mg/dL Urine Occult Blood (NEGATIVE) Urine Nitrite (NEGATIVE) Urine Bilirubin (NEGATIVE) Urine Urobilinogen (NORMAL) E.U./dL Ur Leukocyte Esterase (NEGATIVE) Urine RBC (0-5) /HPF Urine WBC (0-3) /HPF Ur Squamous Epith Cells (<= Few) Urine Bacteria (None Seen) /HPF Urine Culture Comments Nasal Adenovirus (PCR) Nasal B. parapertussis DNA (PCR) Nasal Coronavir 229E PCR Nasal Coronavir HKU1 PCR Nasal Coronavir NL63 PCR Nasal Coronavir OC43 PCR Nasal Enterovir/Rhinovir PCR Nasal Influenza B PCR Nasal Influenza A PCR Nasal Parainfluen 1 PCR Nasal Parainfluen 2 PCR Nasal Parainfluen 3 PCR Nasal Parainfluen 4 PCR Nasal RSV (PCR) Nasal Screen MRSA (PCR) NEGATIVE (NEGATIVE) Nasal B.pertussis DNA PCR Nasal C.pneumoniae (PCR) Graham Human Metapneumo PCR Nasal M.pneumoniae (PCR) Nasal SARS-CoV-2 (PCR) 04/28/23 04/28/23 04/28/23 Range/Units 20:46 15:15 15:09 WBC (4.8-10.8) x10^3/uL RBC (4.70-6.10) 10^6/uL Hgb (14.0-18.0) g/dL Hct (42.0-52.0) % MCV (80.0-94.0) fL MCH (27.0-31.0) pg MCHC (32.0-36.0) g/dL RDW (12.0-15.0) % Plt Count (130-450) 10^3/uL MPV (7.4-11.4) fL Neut # (Auto) (1.5-6.6) 10^3/uL Lymph # (Auto) (1.5-3.5) 10^3/uL [place]kin # (Auto) (0.0-1.0) 10^3/uL Eos # (Auto) (0.0-0.7) 10^3/uL Baso # (Auto) (0.0-0.1) 10^3/uL Absolute Nucleated RBC x10^3/uL Band Neuts % (Manual) Abnorm Lymph % (Manual) Nucleated RBC % /100WBC Neutrophils # (Manual) Lymphocytes # (Manual) Monocytes # (Manual) Eosinophils # (Manual) Basophils # (Manual) Differential Comment Manual Slide Review WBC Morphology (NORMAL) Platelet Estimate (NORMAL) Platelet Morphology (NORMAL) RBC Morph Micro Appear (NORMAL) PT (9.9-12.6) secs INR (0.8-1.2) APTT (24.9-33.3) secs VBG pH (7.31-7.41) Ionized Calcium (1.15-1.33) mmol/L Sodium (135-145) mmol/L Potassium (3.5-4.5) mmol/L Chloride (101-111) mmol/L Carbon Dioxide (21-32) mmol/L Anion Gap (6-13) BUN (6-20) mg/dL Creatinine (0.6-1.3) mg/dL Estimated GFR (MDRD) (>89) Glucose (74-104) mg/dL Lactic Acid 1.5 (0.5-2.2) mmol/L Calcium (8.5-10.3) mg/dL Phosphorus (2.5-5.0) mg/dL Magnesium (1.7-2.3) mg/dL Total Bilirubin (0.2-1.0) mg/dL AST (10-42) IU/L ALT (10-60) IU/L Alkaline Phosphatase (42-121) IU/L Lactate Dehydrogenase (140-271) IU/L Total Protein (6.4-8.9) g/dL Albumin (3.2-5.5) g/dL Globulin (2.1-4.2) g/dL Albumin/Globulin Ratio (1.0-2.2) Urine Color YELLOW Urine Clarity CLEAR (CLEAR) Urine pH 6.0 (5.0-7.5) PH Ur Specific [place] 1.025 (1.002-1.030) Urine Protein 30 H (NEGATIVE) mg/dL Urine Glucose (UA) NEGATIVE (NEGATIVE) mg/dL Urine Ketones NEGATIVE (NEGATIVE) mg/dL Urine Occult Blood MODERATE H (NEGATIVE) Urine Nitrite NEGATIVE (NEGATIVE) Urine Bilirubin NEGATIVE (NEGATIVE) Urine Urobilinogen 0.2 (NORMAL) (NORMAL) E.U./dL Ur Leukocyte Esterase SMALL H (NEGATIVE) Urine RBC 6-10 H (0-5) /HPF Urine WBC 6-10 H (0-3) /HPF Ur Squamous Epith Cells RARE Squamous (<= Few) Urine Bacteria Rare (None Seen) /HPF Urine Culture Comments INDICATED Nasal Adenovirus (PCR) NOT DETECTED Nasal B. parapertussis DNA (PCR) NOT DETECTED Nasal Coronavir 229E PCR NOT DETECTED Nasal Coronavir HKU1 PCR NOT DETECTED Nasal Coronavir NL63 PCR NOT DETECTED Nasal Coronavir OC43 PCR NOT DETECTED Nasal Enterovir/Rhinovir PCR NOT DETECTED Nasal Influenza B PCR NOT DETECTED Nasal Influenza A PCR NOT DETECTED Nasal Parainfluen 1 PCR NOT DETECTED Nasal Parainfluen 2 PCR NOT DETECTED Nasal Parainfluen 3 PCR NOT DETECTED Nasal Parainfluen 4 PCR NOT DETECTED Nasal RSV (PCR) NOT DETECTED Nasal Screen MRSA (PCR) (NEGATIVE) Nasal B.pertussis DNA PCR NOT DETECTED Nasal C.pneumoniae (PCR) NOT DETECTED [place] Human Metapneumo PCR NOT DETECTED Nasal M.pneumoniae (PCR) NOT DETECTED Nasal SARS-CoV-2 (PCR) NOT DETECTED 04/28/23 04/28/23 Range/Units 15:09 15:09 WBC 13.8 H (4.8-10.8) x10^3/uL RBC 2.06 L (4.70-6.10) 10^6/uL Hgb 7.1 L (14.0-18.0) g/dL Hct 23.3 L (42.0-52.0) % MCV 113.1 H (80.0-94.0) fL MCH 34.5 H (27.0-31.0) pg MCHC 30.5 L (32.0-36.0) g/dL RDW 15.3 H (12.0-15.0) % Plt Count 193 (130-450) 10^3/uL MPV 9.0 (7.4-11.4) fL Neut # (Auto) 10.7 H (1.5-6.6) 10^3/uL Lymph # (Auto) 1.2 L (1.5-3.5) 10^3/uL [place]kin # (Auto) 1.5 H (0.0-1.0) 10^3/uL Eos # (Auto) 0.2 (0.0-0.7) 10^3/uL Baso # (Auto) 0.0 (0.0-0.1) 10^3/uL Absolute Nucleated RBC 0.05 x10^3/uL Band Neuts % (Manual) Abnorm Lymph % (Manual) Nucleated RBC % 0.4 /100WBC Neutrophils # (Manual) Lymphocytes # (Manual) Monocytes # (Manual) Eosinophils # (Manual) Basophils # (Manual) Differential Comment Manual Slide Review Indicated WBC Morphology (NORMAL) Platelet Estimate NORMAL (130-450,000) (NORMAL) Platelet Morphology NORMAL APPEARANCE (NORMAL) RBC Morph Micro Appear 1+ POLYCHROMASIA (NORMAL) PT (9.9-12.6) secs INR (0.8-1.2) APTT (24.9-33.3) secs VBG pH (7.31-7.41) Ionized Calcium (1.15-1.33) mmol/L Sodium 136 (135-145) mmol/L Potassium 3.7 (3.5-4.5) mmol/L Chloride 101 (101-111) mmol/L Carbon Dioxide 32 (21-32) mmol/L Anion Gap 3.0 L (6-13) BUN 30 H (6-20) mg/dL Creatinine 1.0 (0.6-1.3) mg/dL Estimated GFR (MDRD) 71 L (>89) Glucose 107 H (74-104) mg/dL Lactic Acid (0.5-2.2) mmol/L Calcium 9.9 (8.5-10.3) mg/dL Phosphorus (2.5-5.0) mg/dL Magnesium (1.7-2.3) mg/dL Total Bilirubin 0.4 (0.2-1.0) mg/dL AST 12 (10-42) IU/L ALT 9 L (10-60) IU/L Alkaline Phosphatase 206 H (42-121) IU/L Lactate Dehydrogenase (140-271) IU/L Total Protein 4.6 L (6.4-8.9) g/dL Albumin 2.6 L (3.2-5.5) g/dL Globulin 2.0 L (2.1-4.2) g/dL Albumin/Globulin Ratio 1.3 (1.0-2.2) Urine Color Urine Clarity (CLEAR) Urine pH (5.0-7.5) PH Ur Specific [place] (1.002-1.030) Urine Protein (NEGATIVE) mg/dL Urine Glucose (UA) (NEGATIVE) mg/dL Urine Ketones (NEGATIVE) mg/dL Urine Occult Blood (NEGATIVE) Urine Nitrite (NEGATIVE) Urine Bilirubin (NEGATIVE) Urine Urobilinogen (NORMAL) E.U./dL Ur Leukocyte Esterase (NEGATIVE) Urine RBC (0-5) /HPF Urine WBC (0-3) /HPF Ur Squamous Epith Cells (<= Few) Urine Bacteria (None Seen) /HPF Urine Culture Comments Nasal Adenovirus (PCR) Nasal B. parapertussis DNA (PCR) Nasal Coronavir 229E PCR Nasal Coronavir HKU1 PCR Nasal Coronavir NL63 PCR Nasal Coronavir OC43 PCR Nasal Enterovir/Rhinovir PCR Nasal Influenza B PCR Nasal Influenza A PCR Nasal Parainfluen 1 PCR Nasal Parainfluen 2 PCR Nasal Parainfluen 3 PCR Nasal Parainfluen 4 PCR Nasal RSV (PCR) Nasal Screen MRSA (PCR) (NEGATIVE) Nasal B.pertussis DNA PCR Nasal C.pneumoniae (PCR) Graham Human Metapneumo PCR Nasal M.pneumoniae (PCR) Nasal SARS-CoV-2 (PCR) - Diagnostic Imaging Diagnostic Imaging Results: positive: Final report reviewed Sepsis Event Note (H) - Evaluation Current Stage of Sepsis: Septic shock Possible source of Sepsis: positive: Pulmonary Confirmed Source and Organism (if known) of Sepsis: Hypoxemic respiratory failure Assessment/Plan - Problem List (1) Septic shock Impression: Source of infection likely pneumonia, with recent hospitalization and SNF stay, concerns hospital-acquired pneumonia Continue on Levophed blood pressure support, titrating down as possible Switch vancomycin and cefepime to Zosyn every 8 hours, with MRSA screening negative Collect sputum culture (2) Anemia Impression: chronic, may have acute component, patient has recent GI bleed, in septic shock setting, may have bone merrow suppression hb stable at 7.2-7.5 will transfuse when Hb<7 Protonix 40mg iv bid check FOBT (3) Lesion of lung Impression: . Likely malignancy, with bone metastatic disease I compared the CT scan on 04/15/[address] scan on 04/28/2023. The impression is that the prostate is irregular along with sclerotic bony metastases. Left lower lobe pulmonary lesion with internal gas and potential internal necrosis. The size of the lesion 6.2 x 4.9 cm. Small pleural effusion, moderate centrilobular emphysema. Mediastinal and left super clavicular foci adenopathy Poor prognosis
[2023-04-29] MEDS: NICOTINE 21 MG PATCH TOP SCH (09:50)
[2023-04-29] MEDS: LACTATED RINGERS 1,000 ML IV SCH ×2 (09:51→22:57)
[2023-04-29] MEDS: MULTIVITAMIN W/MINERALS TABLET PO SCH (10:20)
[2023-04-29] MEDS: ASCORBIC ACID 500 MG TABLET PO SCH (10:22)
[2023-04-29] MEDS: PANTOPRAZOLE 40 MG TABLET PO SCH (10:23)
[2023-04-29] MEDS: guaiFENesin 600 MG TABLET PO SCH ×2 (10:23→20:30)
[2023-04-29] MEDS: TAMSULOSIN 0.4 MG CAPSULE PO SCH (10:24)
[2023-04-29] MEDS: SACCHAROMYCES BOULARDII 250 MG CAPSULE PO SCH ×2 (10:24→17:36)
[2023-04-29] MEDS: THIAMINE 100 MG TABLET PO SCH (10:25)
[2023-04-29] MEDS: PIPERACILLIN/TAZOBACTAM 4.5 GM in SODIUM CHLORIDE 0.9% MINIBAG 100 ML IV ONE ×2 (10:29→10:37)
[2023-04-29 10:49] LABS: ABG HCO3 27.3 mmol/L (22.0-26.0); ABG OXYGEN SATURATION 95 % (94-98); ABG PCO2 46 mmHg (34-45); ABG PH 7.39 (7.35-7.45); ABG PO2 75 mmHg (80-100); ABG TCO2 28.7 MMOL/L (21.0-29.0)
[2023-04-29 10:50] LABS: ALLEN TEST POSITIVE
--- NOTE | 2023-04-29 10:58 | PHARMACY PROGRESS NOTE ---
- Best Possible Medication History Admit Date and Time: 04/28/232148 Processed by: Pharmacy Secondary Source(s): Previous admit records As the person ultimately responsible for medication therapy, providers are able to order a medication from an existing home medication list in [facility] via the "Reconcile Routine" prior to Confirmation of that medication by support services rep. Such practice is discouraged except when the physician, in their clinical judgment, deems that a medical need exists for a medication without regard to previous use.
[2023-04-29] MEDS ORDERED: VANCOMYCIN INJ 1 GM in SODIUM CHLORIDE 0.9% 250 ML IV SCH (11:00)
[2023-04-29] MEDS: PIPERACILLIN/TAZOBACTAM 4.5 GM in SODIUM CHLORIDE 0.9% MINIBAG 100 ML IV SCH ×2 (14:55→22:57)
[2023-04-29 15:10] LABS: HCT - HEMATOCRIT 23.2 % (42.0-52.0); HGB - HEMOGLOBIN 7.2 g/dL (14.0-18.0); MEAN CORPUSCULAR HEMOGLOBIN 35.6 pg (27.0-31.0); MEAN CORPUSCULAR VOLUME 114.9 fL (80.0-94.0); RED BLOOD COUNT 2.02 10^6/uL (4.70-6.10); RED CELL DISTRIBUTION WIDTH 15.3 % (12.0-15.0); WHITE BLOOD COUNT 17.9 x10^3/uL (4.8-10.8)
[2023-04-29 15:42] LABS: ALBUMIN 2.5 g/dL (3.2-5.5); ALBUMIN/GLOBULIN RATIO 1.2 (1.0-2.2); BILIRUBIN,TOTAL 0.5 mg/dL (0.2-1.0); CALCIUM 10.1 mg/dL (8.5-10.3); CRP - C-REACTIVE PROTEIN 10.4 mg/dL (<0.5); TOTAL PROTEIN 4.6 g/dL (6.4-8.9)
--- NOTE | 2023-04-29 15:45 | ADVANCE CARE PLANNING NOTE ---
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 Recent hospitalization from 04/16 - 04/20. Was found having GI bleed. Has new hypoxia, hypotension, chest x-ray showed left lower lobe pneumonia. Patient was started on Levophed for pressor support. On oxygen, still having tachypnea Objective/Medical Story: Septic shock, likely secondary to pneumonia, need pressor support. Anemia, needs blood transfusion Lung mass with bone metastases Overall guarded prognosis Goals of Care: Patient was DNR/DNI status before brought in. Yesterday when ED provider discussed patient with his CODE STATUS, patient revoked his DNR DNI. Currently is full code full treatment. I discussed with patient and his 2 sons regarding patient poor prognosis, patient and family would like to have full treatment and full code at this point Plan: Continue ICU care, continue pressor support Optimize antibiotics use Blood transfusion as needed Nutrition support Oxygen support, may need BiPAP versus high flow if needed. Patient agrees on intubation if there is an indication. Code Status: Attempt Resuscitation Time spent on advance care plannin
[2023-04-29] MEDS ORDERED: ALBUMIN 25% 12.5 GM/50 ML VIAL IV STA (17:27)
[2023-04-29] MEDS: PANTOPRAZOLE 40 MG VIAL IVP SCH (17:36)
[2023-04-29] MEDS ORDERED: BACITRACIN ZINC OINT 1 PACKET TOP PRN (18:05)
[2023-04-29] MEDS ORDERED: MIN OIL/DIMETHICON/COCONUT OIL 92 GM TUBE TOP PRN (18:05)
[2023-04-29] MEDS ORDERED: ZINC OXIDE 20% OINT 30 GM TUBE TOP ONE (18:14)
[2023-04-29] MEDS: FUROSEMIDE 40 MG/4 ML VIAL IVP SCH (18:55)
[2023-04-29] MEDS: NORepinephrine 8 MG in DEXTROSE 5% 250ML IV SCH (19:33)
[2023-04-29] MEDS ORDERED: VANCOMYCIN INJ 1.25 GM in SODIUM CHLORIDE 0.9% 250 ML IV SCH (23:00)
[2023-04-30] MEDS: SODIUM CHLORIDE FLUSH 0.9% 10 ML SYRINGE IVP SCH ×4 (00:31→23:16)
[2023-04-30] MEDS ORDERED: ACETAMINOPHEN 1,000 MG/100 ML 1,000 MG/100 ML BAG IV PRN (00:45)
[2023-04-30 05:31] LABS: BASOPHILS % (AUTO) 0.2 %; EOSINOPHILS % (AUTO) 0.1 %; LYMPHOCYTES % (AUTO) 2.7 %; MEAN CORPUSCULAR HGB CONC 30.4 g/dL (32.0-36.0); MEAN PLATELET VOLUME 9.3 fL (7.4-11.4); MONOCYTES % (AUTO) 9.7 %; NEUTROPHILS % (AUTO) 85.7 %; PLT - PLATELET COUNT 168 10^3/uL (130-450); RED CELL DISTRIBUTION WIDTH 15.3 % (12.0-15.0); WHITE BLOOD COUNT 19.9 x10^3/uL (4.8-10.8)
[2023-04-30 05:53] LABS: CALCIUM 9.8 mg/dL (8.5-10.3); CREATININE 1.1 mg/dL (0.6-1.3); CRP - C-REACTIVE PROTEIN 14.6 mg/dL (<0.5); MAGNESIUM 1.9 mg/dL (1.7-2.3); PHOSPHORUS 3.2 mg/dL (2.5-5.0); POTASSIUM 3.3 mmol/L (3.5-4.5)
[2023-04-30 05:56] LABS: VBG PH 7.4 (7.31-7.41)
[2023-04-30 05:57] LABS: CALCIUM, IONIZED 1.34 mmol/L (1.15-1.33)
[2023-04-30] MEDS: PANTOPRAZOLE 40 MG VIAL IVP SCH ×2 (06:17→20:07)
[2023-04-30] MEDS: PIPERACILLIN/TAZOBACTAM 4.5 GM in SODIUM CHLORIDE 0.9% MINIBAG 100 ML IV SCH ×3 (06:18→23:15)
[2023-04-30] MEDS: POTASSIUM CHLOR 20 MEQ/100 ML 20 MEQ/100 ML BAG IV SCH ×4 (06:24→21:09)
[2023-04-30] MEDS ORDERED: NS IV ONE (06:37)
[2023-04-30] MEDS ORDERED: NOREPINEPHRINE IV ONE (06:37)
[2023-04-30] MEDS: NORepinephrine 8 MG in DEXTROSE 5% 250ML IV SCH ×3 (07:08→23:54)
[2023-04-30 07:17] LABS: ABNORMAL LYMPHS % (MANUAL) 0 %; BAND NEUTROPHILS % (MANUAL) 0 %
[2023-04-30 07:21] LABS: LYMPHOCYTES # (MANUAL) 0.2 10^3/uL (1.5-3.5); LYMPHOCYTES % (MANUAL) 1 %; MONOCYTES # (MANUAL) 1.4 10^3/uL (0.0-1.0); NEUTROPHILS # (MANUAL) 18.3 10^3/uL (1.5-6.6)
[2023-04-30] MEDS ORDERED: FUROSEMIDE 20 MG/2 ML VIAL IVP PRN (07:22)
[2023-04-30 07:23] LABS: DIFFERENTIAL COMMENT MANUAL DIFFERENTIAL
[2023-04-30] MEDS: ASCORBIC ACID 500 MG TABLET PO SCH (07:27)
[2023-04-30] MEDS: guaiFENesin 600 MG TABLET PO SCH ×2 (07:27→19:21)
[2023-04-30] MEDS: MULTIVITAMIN W/MINERALS TABLET PO SCH (07:27)
[2023-04-30] MEDS: SACCHAROMYCES BOULARDII 250 MG CAPSULE PO SCH ×2 (07:27→15:36)
[2023-04-30] MEDS: THIAMINE 100 MG TABLET PO SCH (07:28)
[2023-04-30] MEDS: TAMSULOSIN 0.4 MG CAPSULE PO SCH (07:28)
--- NOTE | 2023-04-30 07:35 | PROVIDER PROGRESS NOTE ---
Subjective - Prog Note Date Prog Note Date: 04/30/23 - Subjective Pt reports feeling: Improved (Still on Levophed, oxygen needs has improved) Current Medications - Current Medications Current Medications: Active Medications Acetaminophen (Acetaminophen 325 Mg Tablet) 650 mg PO Q6H PRN PRN Reason: Pain 1 to 4, or Fever Albuterol/Ipratropium (Ipratropium/Albuterol 3 Ml Neb) 3 ml INH RTQID PRN PRN Reason: Shortness of Air/Wheezing Ascorbic Acid (Ascorbic Acid 500 Mg Tablet) 500 mg PO DAILY [facility] Last Admin: 04/30/23 07:27 Dose: Not Given Bacitracin (Bacitracin Zinc Oint 1 Packet) 1 packet TOP PRN PRN PRN Reason: Skin Care Benzonatate (Benzonatate 100 Mg Capsule) 100 mg PO TID PRN PRN Reason: Cough Furosemide (Furosemide 40 Mg/4 Ml Vial) 40 mg IVP DAILY [facility] Last Admin: 04/30/23 10:00 Dose: 40 mg Furosemide (Furosemide 20 Mg/2 Ml Vial) 20 mg IVP ONCE PRN PRN Reason: Between units Stop: 05/01/23 07:21 Guaifenesin (Guaifenesin 600 Mg Tablet) 600 mg PO BID [facility] Last Admin: 04/30/23 07:27 Dose: Not Given Guaifenesin (Guaifenesin/Dextromethorphan 10 Ml Udc) 10 ml PO Q6HR PRN PRN Reason: Cough Lactated Ringer's (Lr) 1,000 mls @ 75 mls/hr IV .[id number] [facility] Last Infusion: 04/30/23 09:15 Dose: 0 mls/hr Piperacillin Sod/Tazobactam (Sod 4.5 gm/ Sodium Chloride) 100 mls @ 25 mls/hr IV Q8H [facility] Last Admin: 04/30/23 06:18 Dose: 25 mls/hr Norepinephrine Bitartrate 8 mg (/ Dextrose) 250 mls @ 13.125 mls/hr IV .Q19H3M [facility]; Protocol Last Titration: 04/30/23 10:15 Dose: 9 mcg/min, 16.875 mls/hr Acetaminophen (Acetaminophen) 1,000 mg in 100 mls @ 400 mls/hr IV Q6HR PRN PRN Reason: Moderate Pain (Level 4-6) Mineral Oil (Min Oil/Dimethicon/Coconut Oil 92 Gm Tube) 1 applic TOP PRN PRN PRN Reason: Skin Care Multivitamins/Minerals (Multivitamin W/Minerals Tablet) 1 tab PO DAILYWM [facility] Last Admin: 04/30/23 07:27 Dose: Not Given Nicotine (Nicotine 21 Mg Patch) 1 patch TOP DAILY [facility] Last Admin: 04/30/23 08:02 Dose: 1 patch Ondansetron HCl (Ondansetron 4 Mg/2 Ml Vial) 4 mg IVP Q6HR PRN PRN Reason: Nausea / Vomiting Last Admin: 04/28/23 22:04 Dose: 4 mg Pantoprazole Sodium (Pantoprazole 40 Mg Vial) 40 mg IVP BID [facility] Saccharomyces Boulardii (Saccharomyces Boulardii 250 Mg Capsule) 250 mg PO BIDWM [facility] Last Admin: 04/30/23 07:27 Dose: Not Given Sodium Chloride (Sodium Chloride Flush 0.9% 10 Ml Syringe) 10 ml IVP 0100,090 0,1700 [facility] Last Admin: 04/30/23 08:01 Dose: 10 ml Sodium Chloride (Sodium Chloride Flush 0.9% 10 Ml Syringe) 10 ml IVP PRN PRN PRN Reason: NEEDED PER PROVIDER ORDERS Tamsulosin HCl (Tamsulosin 0.4 Mg Capsule) 0.4 mg PO DAILY [facility] Last Admin: 04/30/23 07:28 Dose: Not Given Thiamine HCl (Thiamine 100 Mg Tablet) 100 mg PO DAILY [facility] Last Admin: 04/30/23 07:28 Dose: Not Given Tamsulosin [Flomax] 0.4 mg PO DAILY 04/15/23 Objective - Vital Signs/Intake & Output Reviewed Vital Signs: Yes Vital Signs: Vital Signs Temp Pulse Resp BP Pulse Ox O2 Flow Rate 04/30/23 06:57 110 H 40 H 101/47 L 97 4 04/30/23 06:00 106 H 32 H 96/52 L 96 4 04/30/23 05:00 37.1 C 110 H 34 H 96/52 L 96 4 04/30/23 03:59 37.1 C 112 H 34 H 106/50 L 98 4 Intake & Output: Intake & Output 04/27/23 04/28/23 04/29/23 04/30/23 23:59 23:59 23:59 23:59 Intake Total 2713.688 3059.822 418.990 Output Total 500 2510 590 Balance 2213.688 549.822 -171.010 - Objective General Appearance: positive: Alert, Moderate distress Eyes Bilateral: positive: PERRL, EOMI ENT: positive: Other Neck: positive: No JVD. negative: Stiff neck Respiratory: positive: Rhonchi, Other (Tachypnea). negative: Wheezes Cardiovascular: positive: Regular rate & rhythm, Tachycardia Abdomen: positive: No distention, Other (Hypo bowel sound) Skin: positive: Dry Extremities: positive: Pedal edema, Other (2+ ankle edema) Neurologic/Psychiatric: positive: Other (Awake, opens eyes to commands, follow commands to squeeze my hands, answer questions properly) - Lab Results Fish Bones: 04/30/23 04:30 04/30/23 04:30 Other Labs: Lab Results x24hrs 04/30/23 04/30/23 04/30/23 Range/Units 04:30 04:30 04:30 WBC (4.8-10.8) x10^3/uL RBC (4.70-6.10) 10^6/uL Hgb (14.0-18.0) g/dL Hct (42.0-52.0) % MCV (80.0-94.0) fL MCH (27.0-31.0) pg MCHC (32.0-36.0) g/dL RDW (12.0-15.0) % Plt Count (130-450) 10^3/uL MPV (7.4-11.4) fL Neut # (Auto) (1.5-6.6) 10^3/uL Lymph # (Auto) (1.5-3.5) 10^3/uL [place] # (Auto) (0.0-1.0) 10^3/uL Eos # (Auto) (0.0-0.7) 10^3/uL Baso # (Auto) (0.0-0.1) 10^3/uL Absolute Nucleated RBC x10^3/uL Total Counted Band Neuts % (Manual) Abnorm Lymph % (Manual) Nucleated RBC % /100WBC Neutrophils # (Manual) Lymphocytes # (Manual) Monocytes # (Manual) Eosinophils # (Manual) Basophils # (Manual) Differential Comment WBC Morphology (NORMAL) Platelet Estimate (NORMAL) Platelet Morphology (NORMAL) RBC Morph Micro Appear (NORMAL) Bld Gas Analysis Time Sample Site ABG pH (7.35-7.45) ABG pCO2 (34-45) mmHg ABG pO2 (80-100) mmHg ABG HCO3 (22.0-26.0) mmol/L ABG Total CO2 (21.0-29.0) MMOL/L ABG O2 Saturation (94-98) % ABG Base Excess (-2.0-3.0) mmol/L [place] Test VBG pH 7.400 (7.31-7.41) Ionized Calcium 1.34 H (1.15-1.33) mmol/L O2 Delivery Device O2 Liters/Min LPM Sodium 142 (135-145) mmol/L Potassium 3.3 L (3.5-4.5) mmol/L Chloride 105 (101-111) mmol/L Carbon Dioxide 28 (21-32) mmol/L Anion Gap 9.0 (6-13) BUN 24 H (6-20) mg/dL Creatinine 1.1 (0.6-1.3) mg/dL Estimated GFR (MDRD) 63 L (>89) Glucose 133 H (74-104) mg/dL Calcium 9.8 (8.5-10.3) mg/dL Phosphorus 3.2 (2.5-5.0) mg/dL Magnesium 1.9 (1.7-2.3) mg/dL Total Bilirubin (0.2-1.0) mg/dL AST (10-42) IU/L ALT (10-60) IU/L Alkaline Phosphatase (42-121) IU/L C-Reactive Protein 14.6 H (<0.5) mg/dL B-Natriuretic Peptide 769 H (5-100) pg/mL Total Protein (6.4-8.9) g/dL Albumin (3.2-5.5) g/dL Globulin (2.1-4.2) g/dL Albumin/Globulin Ratio (1.0-2.2) 04/30/23 04/29/23 04/29/23 Range/Units 04:30 22:45 15:05 WBC 19.9 H (4.8-10.8) x10^3/uL RBC 2.00 L (4.70-6.10) 10^6/uL Hgb 7.0 L* (14.0-18.0) g/dL Hct 23.0 L (42.0-52.0) % MCV 115.0 H (80.0-94.0) fL MCH 35.0 H (27.0-31.0) pg MCHC 30.4 L (32.0-36.0) g/dL RDW 15.3 H (12.0-15.0) % Plt Count 168 (130-450) 10^3/uL MPV 9.3 (7.4-11.4) fL Neut # (Auto) Not Reportable (1.5-6.6) 10^3/uL Lymph # (Auto) Not Reportable (1.5-3.5) 10^3/uL [place] # (Auto) Not Reportable (0.0-1.0) 10^3/uL Eos # (Auto) Not Reportable (0.0-0.7) 10^3/uL Baso # (Auto) Not Reportable (0.0-0.1) 10^3/uL Absolute Nucleated RBC Not Reportable x10^3/uL Total Counted 100 Band Neuts % (Manual) 0 Abnorm Lymph % (Manual) 0 Nucleated RBC % Not Reportable /100WBC Neutrophils # (Manual) 18.3 H Lymphocytes # (Manual) 0.2 L Monocytes # (Manual) 1.4 H Eosinophils # (Manual) 0.0 Basophils # (Manual) 0.0 Differential Comment MANUAL DIFFERENTIAL WBC Morphology (NORMAL) Platelet Estimate (NORMAL) Platelet Morphology (NORMAL) RBC Morph Micro Appear 2+ MACROCYTOSIS (NORMAL) Bld Gas Analysis Time Sample Site ABG pH (7.35-7.45) ABG pCO2 (34-45) mmHg ABG pO2 (80-100) mmHg ABG HCO3 (22.0-26.0) mmol/L ABG Total CO2 (21.0-29.0) MMOL/L ABG O2 Saturation (94-98) % ABG Base Excess (-2.0-3.0) mmol/L [place] Test VBG pH (7.31-7.41) Ionized Calcium (1.15-1.33) mmol/L O2 Delivery Device O2 Liters/Min LPM Sodium (135-145) mmol/L Potassium (3.5-4.5) mmol/L Chloride (101-111) mmol/L Carbon Dioxide (21-32) mmol/L Anion Gap (6-13) BUN (6-20) mg/dL Creatinine (0.6-1.3) mg/dL Estimated GFR (MDRD) (>89) Glucose (74-104) mg/dL Calcium (8.5-10.3) mg/dL Phosphorus (2.5-5.0) mg/dL Magnesium 1.9 (1.7-2.3) mg/dL Total Bilirubin (0.2-1.0) mg/dL AST (10-42) IU/L ALT (10-60) IU/L Alkaline Phosphatase (42-121) IU/L C-Reactive Protein (<0.5) mg/dL B-Natriuretic Peptide 754 H (5-100) pg/mL Total Protein (6.4-8.9) g/dL Albumin (3.2-5.5) g/dL Globulin (2.1-4.2) g/dL Albumin/Globulin Ratio (1.0-2.2) 04/29/23 04/29/23 04/29/23 Range/Units 15:05 15:05 10:30 WBC 17.9 H (4.8-10.8) x10^3/uL RBC 2.02 L (4.70-6.10) 10^6/uL Hgb 7.2 L (14.0-18.0) g/dL Hct 23.2 L (42.0-52.0) % MCV 114.9 H (80.0-94.0) fL MCH 35.6 H (27.0-31.0) pg MCHC 31.0 L (32.0-36.0) g/dL RDW 15.3 H (12.0-15.0) % Plt Count 162 (130-450) 10^3/uL MPV 9.0 (7.4-11.4) fL Neut # (Auto) (1.5-6.6) 10^3/uL Lymph # (Auto) (1.5-3.5) 10^3/uL [place] # (Auto) (0.0-1.0) 10^3/uL Eos # (Auto) (0.0-0.7) 10^3/uL Baso # (Auto) (0.0-0.1) 10^3/uL Absolute Nucleated RBC x10^3/uL Total Counted Band Neuts % (Manual) Abnorm Lymph % (Manual) Nucleated RBC % /100WBC Neutrophils # (Manual) Lymphocytes # (Manual) Monocytes # (Manual) Eosinophils # (Manual) Basophils # (Manual) Differential Comment WBC Morphology (NORMAL) Platelet Estimate (NORMAL) Platelet Morphology (NORMAL) RBC Morph Micro Appear (NORMAL) Bld Gas Analysis Time 1051 Sample Site RIGHT RADIAL ABG pH 7.39 (7.35-7.45) ABG pCO2 46 H (34-45) mmHg ABG pO2 75 L (80-100) mmHg ABG HCO3 27.3 H (22.0-26.0) mmol/L ABG Total CO2 28.7 (21.0-29.0) MMOL/L ABG O2 Saturation 95 (94-98) % ABG Base Excess 2.0 (-2.0-3.0) mmol/L [place] Test POSITIVE VBG pH (7.31-7.41) Ionized Calcium (1.15-1.33) mmol/L O2 Delivery Device OXYMASK O2 Liters/Min 5.00 LPM Sodium 139 (135-145) mmol/L Potassium 4.0 (3.5-4.5) mmol/L Chloride 107 (101-111) mmol/L Carbon Dioxide 29 (21-32) mmol/L Anion Gap 3.0 L (6-13) BUN 24 H (6-20) mg/dL Creatinine 1.0 (0.6-1.3) mg/dL Estimated GFR (MDRD) 71 L (>89) Glucose 109 H (74-104) mg/dL Calcium 10.1 (8.5-10.3) mg/dL Phosphorus (2.5-5.0) mg/dL Magnesium (1.7-2.3) mg/dL Total Bilirubin 0.5 (0.2-1.0) mg/dL AST 11 (10-42) IU/L ALT 8 L (10-60) IU/L Alkaline Phosphatase 201 H (42-121) IU/L C-Reactive Protein 10.4 H (<0.5) mg/dL B-Natriuretic Peptide (5-100) pg/mL Total Protein 4.6 L (6.4-8.9) g/dL Albumin 2.5 L (3.2-5.5) g/dL Globulin 2.1 (2.1-4.2) g/dL Albumin/Globulin Ratio 1.2 (1.0-2.2) 04/29/23 Range/Units 04:45 WBC (4.8-10.8) x10^3/uL RBC (4.70-6.10) 10^6/uL Hgb (14.0-18.0) g/dL Hct (42.0-52.0) % MCV (80.0-94.0) fL MCH (27.0-31.0) pg MCHC (32.0-36.0) g/dL RDW (12.0-15.0) % Plt Count (130-450) 10^3/uL MPV (7.4-11.4) fL Neut # (Auto) 14.5 H (1.5-6.6) 10^3/uL Lymph # (Auto) 0.5 L (1.5-3.5) 10^3/uL [place] # (Auto) 1.6 H (0.0-1.0) 10^3/uL Eos # (Auto) 0.1 (0.0-0.7) 10^3/uL Baso # (Auto) 0.0 (0.0-0.1) 10^3/uL Absolute Nucleated RBC 0.04 x10^3/uL Total Counted Band Neuts % (Manual) Not Reportable Abnorm Lymph % (Manual) Not Reportable Nucleated RBC % 0.2 /100WBC Neutrophils # (Manual) Not Reportable Lymphocytes # (Manual) Not Reportable Monocytes # (Manual) Not Reportable Eosinophils # (Manual) Not Reportable Basophils # (Manual) Not Reportable Differential Comment MANUAL=AUTO DIFF WBC Morphology NORMAL [place] (NORMAL) Platelet Estimate NORMAL (130-450,000) (NORMAL) Platelet Morphology NORMAL APPEARANCE (NORMAL) RBC Morph Micro Appear 1+ MACROCYTOSIS (NORMAL) Bld Gas Analysis Time Sample Site ABG pH (7.35-7.45) ABG pCO2 (34-45) mmHg ABG pO2 (80-100) mmHg ABG HCO3 (22.0-26.0) mmol/L ABG Total CO2 (21.0-29.0) MMOL/L ABG O2 Saturation (94-98) % ABG Base Excess (-2.0-3.0) mmol/L [place] Test VBG pH (7.31-7.41) Ionized Calcium (1.15-1.33) mmol/L O2 Delivery Device O2 Liters/Min LPM Sodium (135-145) mmol/L Potassium (3.5-4.5) mmol/L Chloride (101-111) mmol/L Carbon Dioxide (21-32) mmol/L Anion Gap (6-13) BUN (6-20) mg/dL Creatinine (0.6-1.3) mg/dL Estimated GFR (MDRD) (>89) Glucose (74-104) mg/dL Calcium (8.5-10.3) mg/dL Phosphorus (2.5-5.0) mg/dL Magnesium (1.7-2.3) mg/dL Total Bilirubin (0.2-1.0) mg/dL AST (10-42) IU/L ALT (10-60) IU/L Alkaline Phosphatase (42-121) IU/L C-Reactive Protein (<0.5) mg/dL B-Natriuretic Peptide (5-100) pg/mL Total Protein (6.4-8.9) g/dL Albumin (3.2-5.5) g/dL Globulin (2.1-4.2) g/dL Albumin/Globulin Ratio (1.0-2.2) - Diagnostic Imaging Diagnostic Imaging Results: positive: Final report reviewed Sepsis Event Note (H) - Evaluation Current Stage of Sepsis: Septic shock Possible source of Sepsis: positive: Pulmonary Assessment/Plan - Problem List (1) Septic shock Impression: Still on Levophed, unable to wean down, still has tachycardia Give blood, hope to improve the intravascular volume (2) Anemia Impression: Worsening, hemoglobin 7 today Give 2 units of blood transfusion recheck hemoglobin in the afternoon Protonix give twice a day (3) Lesion of lung Impression: Left lower lung mass 6.4 x 2.9 cm It can be the reason for obstructive pneumonia Guarded prognosis, continue conversation with patient and family regarding their goal of care (4) Anasarca Impression: Likely secondary to overall poor nutrition status, shock status Intravascular Volume deficiency, third spacing Elevated BNP 700s Continue give Lasix along with colloid fluid Monitoring volume status
[2023-04-30] MEDS: NICOTINE 21 MG PATCH TOP SCH (08:02)
[2023-04-30] MEDS: FUROSEMIDE 40 MG/4 ML VIAL IVP SCH (10:00)
[2023-04-30] MEDS ORDERED: POTASSIUM CHLOR 20 MEQ/100 ML 20 MEQ/100 ML BAG IV ONE ×3 (11:00→16:39)
[2023-04-30] MEDS ORDERED: LABETALOL 20 MG/4 ML SYRINGE IVP PRN (11:43)
[2023-04-30] MEDS ORDERED: DIGOXIN 500 MCG/2 ML AMP IVP STA (12:55)
--- NOTE | 2023-04-30 13:09 | PROVIDER PROGRESS NOTE ---
Progress Note Critical care note Patient heart rate went up to 130s, appears to be atrial fibrillation on telemetry monitoring. Blood pressure cannot maintain very well even on increased from 8 to 24mcg per KG per minute Levophed. Patient work of breathing is much worsening. Concerns of PE. Unable to perform CTA at this point due to unstable vital signs. Give digoxin to help with the heart rate, start BiPAP to help with work of breathing Can give dobutamine if second vasopressor is in need I spent 25 minutes at bedside for critical care and to discuss with family regarding the guarded outcome I discussed with the family regarding the poor outcome including patient might sudden cardiac arrest, or if being intubated, he might have to dependent on ventilator until his heart stopped beating. Patient son EMILY Rodriguez states that he is happy that patient would like to continue fight for life. Remaining full CODE STATUS.
[2023-04-30] MEDS: DOBUTamine 500 MG/250 ML 500 MG/250 ML BAG IV SCH (13:30)
[2023-04-30] MEDS ORDERED: AMIODARONE 150 MG/3 ML VIAL IVP STA (14:19)
[2023-04-30] MEDS ORDERED: AMIODARONE 150 MG/100 ML 100 ML IV ONE (14:21)
[2023-04-30] MEDS ORDERED: AMIODARONE 360 MG/200 ML 200 ML IV ONE (15:03)
[2023-04-30] MEDS: NOREPINEPHRINE/0.9 % NS 8 MG/250 ML BAG IV SCH (15:54)
[2023-04-30] MEDS: LACTATED RINGERS 1,000 ML IV SCH (16:57)
[2023-04-30] MEDS: DIGOXIN 500 MCG/2 ML AMP IVP SCH ×2 (17:00→23:11)
[2023-04-30 17:02] LABS: BASOPHILS % (AUTO) 0.2 %; EOSINOPHILS % (AUTO) 0.2 %; HCT - HEMATOCRIT 27.5 % (42.0-52.0); HGB - HEMOGLOBIN 8.7 g/dL (14.0-18.0); LYMPHOCYTES % (AUTO) 2.5 %; MEAN CORPUSCULAR HEMOGLOBIN 33.2 pg (27.0-31.0); MEAN CORPUSCULAR HGB CONC 31.6 g/dL (32.0-36.0); MEAN PLATELET VOLUME 8.9 fL (7.4-11.4); NEUTROPHILS % (AUTO) 86.6 %; PLT - PLATELET COUNT 139 10^3/uL (130-450); RED BLOOD COUNT 2.62 10^6/uL (4.70-6.10); RED CELL DISTRIBUTION WIDTH 20.6 % (12.0-15.0); WHITE BLOOD COUNT 16.9 x10^3/uL (4.8-10.8)
[2023-04-30 17:05] LABS: ABNORMAL LYMPHS % (MANUAL) 0 %; LYMPHOCYTES % (MANUAL) 0 %
[2023-04-30 17:22] LABS: BAND NEUTROPHILS % (MANUAL) 1 %; LYMPHOCYTES # (MANUAL) 0.8 10^3/uL (1.5-3.5); MONOCYTES # (MANUAL) 1.7 10^3/uL (0.0-1.0); NEUTROPHILS # (MANUAL) 14.4 10^3/uL (1.5-6.6); REACTIVE LYMPHS % (MANUAL) 5 %
[2023-04-30 17:23] LABS: DIFFERENTIAL COMMENT MANUAL DIFFERENTIAL; PLATELET ESTIMATE, MANUAL NORMAL (130-450,000) (NORMAL); PLATELET MORPHOLOGY NORMAL APPEARANCE (NORMAL)
[2023-04-30 17:26] LABS: CREATININE 1.2 mg/dL (0.6-1.3); POTASSIUM 3.7 mmol/L (3.5-4.5)
[2023-04-30] MEDS ORDERED: ALPRAZolam 0.25 MG TABLET PO PRN (17:49)
[2023-04-30] MEDS ORDERED: MORPHINE 10 MG/ML VIAL IVP PRN (17:49)
[2023-04-30] MEDS: LORazepam 2 MG/ML VIAL IVP PRN (18:03)
[2023-04-30] MEDS: ZINC OXIDE 20% OINT 30 GM TUBE TOP PRN (18:33)
[2023-04-30] MEDS: AMIODARONE 360 MG/200 ML 200 ML IV SCH (20:47)
[2023-04-30] MEDS ORDERED: DIATR MEGLU/DIATRIZOATE SODIUM 120 ML BOTTLE ONE (21:24)
[2023-04-30] MEDS: MORPHINE 2 MG/ML CARPUJECT IVP PRN (21:50)
[2023-05-01] MEDS: MORPHINE 2 MG/ML CARPUJECT IVP PRN ×2 (03:13→15:05)
[2023-05-01 05:14] LABS: CALCIUM, IONIZED 1.44 mmol/L (1.15-1.33); VBG PH 7.383 (7.31-7.41)
[2023-05-01 05:18] LABS: CALCIUM 10.5 mg/dL (8.5-10.3); CREATININE 1.1 mg/dL (0.6-1.3); CRP - C-REACTIVE PROTEIN 15.6 mg/dL (<0.5); MAGNESIUM 1.8 mg/dL (1.7-2.3); PHOSPHORUS 2.5 mg/dL (2.5-5.0); POTASSIUM 3.9 mmol/L (3.5-4.5)
[2023-05-01 05:22] LABS: BASOPHILS % (AUTO) 0.3 %; EOSINOPHILS # (AUTO) 0.2 10^3/uL (0.0-0.7); HCT - HEMATOCRIT 27.2 % (42.0-52.0); HGB - HEMOGLOBIN 8.6 g/dL (14.0-18.0); LYMPHOCYTES # (AUTO) 0.7 10^3/uL (1.5-3.5); LYMPHOCYTES % (AUTO) 4.2 %; MEAN CORPUSCULAR HEMOGLOBIN 33.9 pg (27.0-31.0); MEAN CORPUSCULAR HGB CONC 31.6 g/dL (32.0-36.0); MEAN CORPUSCULAR VOLUME 107.1 fL (80.0-94.0); MEAN PLATELET VOLUME 9.7 fL (7.4-11.4); MONOCYTES # (AUTO) 1.7 10^3/uL (0.0-1.0); MONOCYTES % (AUTO) 11.1 %; NEUTROPHILS # (AUTO) 12.8 10^3/uL (1.5-6.6); NRBC ABSOLUTE COUNT (AUTO) 0.04 x10^3/uL; NUCLEATED RED BLOOD CELLS AUTO 0.3 /100WBC; PLT - PLATELET COUNT 144 10^3/uL (130-450); RED BLOOD COUNT 2.54 10^6/uL (4.70-6.10); RED CELL DISTRIBUTION WIDTH 20.7 % (12.0-15.0); WHITE BLOOD COUNT 15.5 x10^3/uL (4.8-10.8)
[2023-05-01] MEDS: DIGOXIN 500 MCG/2 ML AMP IVP SCH (05:39)
[2023-05-01] MEDS ORDERED: POTASSIUM CHLOR 20 MEQ/100 ML 20 MEQ/100 ML BAG IV ONE ×4 (05:43→17:23)
[2023-05-01] MEDS ORDERED: MAGNESIUM SULFATE 2 GRAM 2 GM/50 ML BAG IV ONE (05:43)
[2023-05-01] MEDS: LACTATED RINGERS 1,000 ML IV SCH ×2 (06:19→20:18)
[2023-05-01] MEDS: PIPERACILLIN/TAZOBACTAM 4.5 GM in SODIUM CHLORIDE 0.9% MINIBAG 100 ML IV SCH ×3 (06:30→22:33)
[2023-05-01] MEDS: ZINC OXIDE 20% OINT 30 GM TUBE TOP PRN (06:32)
[2023-05-01 07:21] LABS: ABG BASE EXCESS 4.3 mmol/L (-2.0-3.0); ABG HCO3 29.5 mmol/L (22.0-26.0); ABG PCO2 47 mmHg (34-45); ABG PH 7.41 (7.35-7.45); ABG PO2 75 mmHg (80-100)
[2023-05-01 07:22] LABS: ABG OXYGEN SATURATION 95 % (94-98); ALLEN TEST POSITIVE
--- NOTE | 2023-05-01 07:37 | PROVIDER PROGRESS NOTE ---
Subjective - Prog Note Date Prog Note Date: 05/01/23 - Subjective Pt reports feeling: Worse (In need of to vasopressors, in need of BiPAP support, mental status is worsening as well) Subjective: Patient response to painful stimuli, cannot take p.o. poor gag reflex Current Medications - Current Medications Current Medications: Active Medications Acetaminophen (Acetaminophen 325 Mg Tablet) 650 mg PO Q6H PRN PRN Reason: Pain 1 to 4, or Fever Albuterol/Ipratropium (Ipratropium/Albuterol 3 Ml Neb) 3 ml INH RTQID PRN PRN Reason: Shortness of Air/Wheezing Alprazolam (Alprazolam 0.25 Mg Tablet) 0.5 mg PO BID PRN PRN Reason: Anxiety Ascorbic Acid (Ascorbic Acid 500 Mg Tablet) 500 mg PO DAILY [facility] Last Admin: 05/01/23 08:12 Dose: Not Given Bacitracin (Bacitracin Zinc Oint 1 Packet) 1 packet TOP PRN PRN PRN Reason: Skin Care Benzonatate (Benzonatate 100 Mg Capsule) 100 mg PO TID PRN PRN Reason: Cough Digoxin (Digoxin 500 Mcg/2 Ml Amp) 250 mcg IVP Q6HR [facility] Stop: 05/03/23 17:59 Last Admin: 05/01/23 05:39 Dose: 250 mcg Furosemide (Furosemide 40 Mg/4 Ml Vial) 40 mg IVP DAILY [facility] Last Admin: 05/01/23 08:11 Dose: 40 mg Guaifenesin (Guaifenesin 600 Mg Tablet) 600 mg PO BID [facility] Last Admin: 05/01/23 08:12 Dose: Not Given Guaifenesin (Guaifenesin/Dextromethorphan 10 Ml Udc) 10 ml PO Q6HR PRN PRN Reason: Cough Lactated Ringer's (Lr) 1,000 mls @ 75 mls/hr IV .[id number] [facility] Last Infusion: 05/01/23 09:00 Dose: 75 mls/hr Piperacillin Sod/Tazobactam (Sod 4.5 gm/ Sodium Chloride) 100 mls @ 25 mls/hr IV Q8H [facility] Last Infusion: 05/01/23 09:30 Dose: 25 mls/hr Norepinephrine Bitartrate 8 mg (/ Dextrose) 250 mls @ 13.125 mls/hr IV .Q19H3M [facility]; Protocol Last Admin: 05/01/23 08:45 Dose: 15 mcg/min, 28.125 mls/hr Acetaminophen (Acetaminophen) 1,000 mg in 100 mls @ 400 mls/hr IV Q6HR PRN PRN Reason: Moderate Pain (Level 4-6) Dobutamine HCl/Dextrose (Dobutamine) 500 mg in 250 mls @ 6.375 mls/hr IV TITR [facility]; Protocol Last Admin: 05/01/23 08:46 Dose: 4 mcg/kg/min, 10.2 mls/hr Amiodarone HCl/Dextrose (Nexterone 360 Mg/200 Ml) 200 mls @ 16.667 mls/hr IV .Q12H [facility] Last Admin: 05/01/23 08:45 Dose: 0.5 mg/min, 16.667 mls/hr Potassium Chloride (Potassium Chloride) 20 meq in 100 mls @ 100 mls/hr IV ONCE ONE; Protocol Stop: 05/01/23 11:20 Last Admin: 05/01/23 10:31 Dose: 100 mls/hr Lorazepam (Lorazepam 2 Mg/Ml Vial) 0.5 mg IVP Q4H PRN PRN Reason: Anxiety Last Admin: 04/30/23 18:03 Dose: 0.5 mg Mineral Oil (Min Oil/Dimethicon/Coconut Oil 92 Gm Tube) 1 applic TOP PRN PRN PRN Reason: Skin Care Morphine Sulfate (Morphine 2 Mg/Ml Carpuject) 2 mg IVP Q2H PRN PRN Reason: Agitation Last Admin: 05/01/23 03:13 Dose: 2 mg Multi-Ingredient Ointment (Zinc Oxide 20% Oint 30 Gm Tube) 1 applic TOP PRN PRN PRN Reason: Skin Care Last Admin: 05/01/23 06:32 Dose: 1 applic Multivitamins/Minerals (Multivitamin W/Minerals Tablet) 1 tab PO DAILYWM [facility] Last Admin: 05/01/23 08:12 Dose: Not Given Nicotine (Nicotine 21 Mg Patch) 1 patch TOP DAILY [facility] Last Admin: 05/01/23 08:11 Dose: 1 patch Ondansetron HCl (Ondansetron 4 Mg/2 Ml Vial) 4 mg IVP Q6HR PRN PRN Reason: Nausea / Vomiting Last Admin: 04/28/23 22:04 Dose: 4 mg Pantoprazole Sodium (Pantoprazole 40 Mg Vial) 40 mg IVP BID [facility] Last Admin: 05/01/23 08:11 Dose: 40 mg Saccharomyces Boulardii (Saccharomyces Boulardii 250 Mg Capsule) 250 mg PO BIDWM [facility] Last Admin: 05/01/23 08:12 Dose: Not Given Sodium Chloride (Sodium Chloride Flush 0.9% 10 Ml Syringe) 10 ml IVP 0100,0900,1700 [facility] Last Admin: 05/01/23 08:11 Dose: 10 ml Sodium Chloride (Sodium Chloride Flush 0.9% 10 Ml Syringe) 10 ml IVP PRN PRN PRN Reason: NEEDED PER PROVIDER ORDERS Tamsulosin HCl (Tamsulosin 0.4 Mg Capsule) 0.4 mg PO DAILY [facility] Last Admin: 05/01/23 08:12 Dose: Not Given Thiamine HCl (Thiamine 100 Mg Tablet) 100 mg PO DAILY [facility] Last Admin: 05/01/23 08:12 Dose: Not Given Tamsulosin [Flomax] 0.4 mg PO DAILY 04/15/23 Objective - Vital Signs/Intake & Output Reviewed Vital Signs: Yes Vital Signs: Vital Signs Temp Pulse Pulse Resp BP Pulse Ox 05/01/23 07:13 101 H 05/01/23 06:57 101 H 29 H 101/54 L 100 05/01/23 06:00 103 H 33 H 107/60 100 05/01/23 05:39 101 H 05/01/23 05:31 101 H 05/01/23 05:00 37.0 C 102 H 33 H 111/48 L 100 05/01/23 04:00 103 H 30 H 107/49 L 100 Intake & Output: Intake & Output 04/28/23 04/29/23 04/30/23 05/01/23 23:59 23:59 23:59 23:59 Intake Total 2713.688 3059.822 3676.474 1715.249 Output Total 500 2510 2235 325 Balance 2213.688 373.054 5765.474 1390.249 - Objective General Appearance: positive: Moderate distress (GCS score 9 with open eyes to verbal commands, has incomprehensible sounds and withdraw from pain) ENT: positive: Other (BiPAP support) Neck: positive: No JVD. negative: Stiff neck Respiratory: positive: Rhonchi, Other (Moderate respiratory distress, tachypnea, use accessory muscles, use abdominal muscles) Cardiovascular: positive: Regular rate & rhythm, Tachycardia Abdomen: positive: No distention, Other (Hypo bowel sound) Skin: positive: Dry, Pallor. negative: Diaphoresis Extremities: positive: Pedal edema (1+ edema, better than yesterday) Neurologic/Psychiatric: positive: Other (GCS score of 9) - Lab Results Fish Bones: 05/01/23 04:20 05/01/23 09:52 Other Labs: Lab Results x24hrs 05/01/23 05/01/23 05/01/23 Range/Units 07:08 04:20 04:20 WBC (4.8-10.8) x10^3/uL RBC (4.70-6.10) 10^6/uL Hgb (14.0-18.0) g/dL Hct (42.0-52.0) % MCV (80.0-94.0) fL MCH (27.0-31.0) pg MCHC (32.0-36.0) g/dL RDW (12.0-15.0) % Plt Count (130-450) 10^3/uL MPV (7.4-11.4) fL Neut # (Auto) Lymph # (Auto) Robertson # (Auto) Eos # (Auto) Baso # (Auto) Absolute Nucleated RBC Total Counted Band Neuts % (Manual) (0 - 10) % Reactive Lymphs % (Man) % Abnorm Lymph % (Manual) % Nucleated RBC % Neutrophils # (Manual) (1.5-6.6) 10^3/uL Lymphocytes # (Manual) (1.5-3.5) 10^3/uL Monocytes # (Manual) (0.0-1.0) 10^3/uL Eosinophils # (Manual) (0-0.7) 10^3/uL Basophils # (Manual) (0-0.1) 10^3/uL Differential Comment Platelet Estimate (NORMAL) Platelet Morphology (NORMAL) RBC Morph Micro Appear (NORMAL) Bld Gas Analysis Time 0722 Sample Site LEFT RADIAL ABG pH 7.41 (7.35-7.45) ABG pCO2 47 H (34-45) mmHg ABG pO2 75 L (80-100) mmHg ABG HCO3 29.5 H (22.0-26.0) mmol/L ABG Total CO2 31.0 H (21.0-29.0) MMOL/L ABG O2 Saturation 95 (94-98) % ABG Base Excess 4.3 H (-2.0-3.0) mmol/L Juaquin Test POSITIVE VBG pH 7.383 (7.31-7.41) Ionized Calcium 1.44 H (1.15-1.33) mmol/L O2 Delivery Device BiPAP FiO2 40.00 EPAP 5 cmH2O IPAP 16 cmH2O Sodium (135-145) mmol/L Potassium (3.5-4.5) mmol/L Chloride (101-111) mmol/L Carbon Dioxide (21-32) mmol/L Anion Gap (6-13) BUN (6-20) mg/dL Creatinine (0.6-1.3) mg/dL Estimated GFR (MDRD) (>89) Glucose (74-104) mg/dL Calcium (8.5-10.3) mg/dL Phosphorus (2.5-5.0) mg/dL Magnesium (1.7-2.3) mg/dL C-Reactive Protein (<0.5) mg/dL B-Natriuretic Peptide 874 H (5-100) pg/mL Blood Type Antibody Screen Crossmatch IS Only 05/01/23 05/01/23 04/30/23 Range/Units 04:20 04:20 23:00 WBC 15.5 H (4.8-10.8) x10^3/uL RBC 2.54 L (4.70-6.10) 10^6/uL Hgb 8.6 L (14.0-18.0) g/dL Hct 27.2 L (42.0-52.0) % MCV 107.1 H (80.0-94.0) fL MCH 33.9 H (27.0-31.0) pg MCHC 31.6 L (32.0-36.0) g/dL RDW 20.7 H (12.0-15.0) % Plt Count 144 (130-450) 10^3/uL MPV 9.7 (7.4-11.4) fL Neut # (Auto) 12.8 H Lymph # (Auto) 0.7 L Robertson # (Auto) 1.7 H Eos # (Auto) 0.2 Baso # (Auto) 0.0 Absolute Nucleated RBC 0.04 Total Counted Band Neuts % (Manual) (0 - 10) % Reactive Lymphs % (Man) % Abnorm Lymph % (Manual) % Nucleated RBC % 0.3 Neutrophils # (Manual) (1.5-6.6) 10^3/uL Lymphocytes # (Manual) (1.5-3.5) 10^3/uL Monocytes # (Manual) (0.0-1.0) 10^3/uL Eosinophils # (Manual) (0-0.7) 10^3/uL Basophils # (Manual) (0-0.1) 10^3/uL Differential Comment Platelet Estimate (NORMAL) Platelet Morphology (NORMAL) RBC Morph Micro Appear (NORMAL) Bld Gas Analysis Time Sample Site ABG pH (7.35-7.45) ABG pCO2 (34-45) mmHg ABG pO2 (80-100) mmHg ABG HCO3 (22.0-26.0) mmol/L ABG Total CO2 (21.0-29.0) MMOL/L ABG O2 Saturation (94-98) % ABG Base Excess (-2.0-3.0) mmol/L J[place]quin Test VBG pH (7.31-7.41) Ionized Calcium (1.15-1.33) mmol/L O2 Delivery Device FiO2 EPAP cmH2O IPAP cmH2O Sodium 141 (135-145) mmol/L Potassium 3.9 4.3 (3.5-4.5) mmol/L Chloride 106 (101-111) mmol/L Carbon Dioxide 32 (21-32) mmol/L Anion Gap 3.0 L (6-13) BUN 23 H (6-20) mg/dL Creatinine 1.1 (0.6-1.3) mg/dL Estimated GFR (MDRD) 63 L (>89) Glucose 148 H (74-104) mg/dL Calcium 10.5 H (8.5-10.3) mg/dL Phosphorus 2.5 (2.5-5.0) mg/dL Magnesium 1.8 (1.7-2.3) mg/dL C-Reactive Protein 15.6 H (<0.5) mg/dL B-Natriuretic Peptide (5-100) pg/mL Blood Type Antibody Screen Crossmatch IS Only 04/30/23 04/30/23 04/30/23 Range/Units 18:00 16:55 16:55 WBC 16.9 H (4.8-10.8) x10^3/uL RBC 2.62 L (4.70-6.10) 10^6/uL Hgb 8.7 L (14.0-18.0) g/dL Hct 27.5 L (42.0-52.0) % MCV 105.0 H (80.0-94.0) fL MCH 33.2 H (27.0-31.0) pg MCHC 31.6 L (32.0-36.0) g/dL RDW 20.6 H (12.0-15.0) % Plt Count 139 (130-450) 10^3/uL MPV 8.9 (7.4-11.4) fL Neut # (Auto) Not Reportable Lymph # (Auto) Not Reportable Robertson # (Auto) Not Reportable Eos # (Auto) Not Reportable Baso # (Auto) Not Reportable Absolute Nucleated RBC Not Reportable Total Counted 100 Band Neuts % (Manual) 1 (0 - 10) % Reactive Lymphs % (Man) 5 % Abnorm Lymph % (Manual) 0 % Nucleated RBC % Not Reportable Neutrophils # (Manual) 14.4 H (1.5-6.6) 10^3/uL Lymphocytes # (Manual) 0.8 L (1.5-3.5) 10^3/uL Monocytes # (Manual) 1.7 H (0.0-1.0) 10^3/uL Eosinophils # (Manual) 0.0 (0-0.7) 10^3/uL Basophils # (Manual) 0.0 (0-0.1) 10^3/uL Differential Comment MANUAL DIFFERENTIAL Platelet Estimate NORMAL (130-450,000) (NORMAL) Platelet Morphology NORMAL APPEARANCE (NORMAL) RBC Morph Micro Appear 1+ POLYCHROMASIA (NORMAL) Bld Gas Analysis Time Sample Site ABG pH (7.35-7.45) ABG pCO2 (34-45) mmHg ABG pO2 (80-100) mmHg ABG HCO3 (22.0-26.0) mmol/L ABG Total CO2 (21.0-29.0) MMOL/L ABG O2 Saturation (94-98) % ABG Base Excess (-2.0-3.0) mmol/L J[place]quin Test VBG pH (7.31-7.41) Ionized Calcium (1.15-1.33) mmol/L O2 Delivery Device FiO2 EPAP cmH2O IPAP cmH2O Sodium 140 (135-145) mmol/L Potassium 3.5 3.7 (3.5-4.5) mmol/L Chloride 105 (101-111) mmol/L Carbon Dioxide 30 (21-32) mmol/L Anion Gap 5.0 L (6-13) BUN 26 H (6-20) mg/dL Creatinine 1.2 (0.6-1.3) mg/dL Estimated GFR (MDRD) 57 L (>89) Glucose 215 H (74-104) mg/dL Calcium 10.0 (8.5-10.3) mg/dL Phosphorus (2.5-5.0) mg/dL Magnesium (1.7-2.3) mg/dL C-Reactive Protein (<0.5) mg/dL B-Natriuretic Peptide (5-100) pg/mL Blood Type Antibody Screen Crossmatch IS Only 04/30/23 04/30/23 04/30/23 Range/Units 16:10 13:17 09:59 WBC (4.8-10.8) x10^3/uL RBC (4.70-6.10) 10^6/uL Hgb (14.0-18.0) g/dL Hct (42.0-52.0) % MCV (80.0-94.0) fL MCH (27.0-31.0) pg MCHC (32.0-36.0) g/dL RDW (12.0-15.0) % Plt Count (130-450) 10^3/uL MPV (7.4-11.4) fL Neut # (Auto) Lymph # (Auto) Robertson # (Auto) Eos # (Auto) Baso # (Auto) Absolute Nucleated RBC Total Counted Band Neuts % (Manual) (0 - 10) % Reactive Lymphs % (Man) % Abnorm Lymph % (Manual) % Nucleated RBC % Neutrophils # (Manual) (1.5-6.6) 10^3/uL Lymphocytes # (Manual) (1.5-3.5) 10^3/uL Monocytes # (Manual) (0.0-1.0) 10^3/uL Eosinophils # (Manual) (0-0.7) 10^3/uL Basophils # (Manual) (0-0.1) 10^3/uL Differential Comment Platelet Estimate (NORMAL) Platelet Morphology (NORMAL) RBC Morph Micro Appear (NORMAL) Bld Gas Analysis Time Sample Site ABG pH (7.35-7.45) ABG pCO2 (34-45) mmHg ABG pO2 (80-100) mmHg ABG HCO3 (22.0-26.0) mmol/L ABG Total CO2 (21.0-29.0) MMOL/L ABG O2 Saturation (94-98) % ABG Base Excess (-2.0-3.0) mmol/L J[place]quin Test VBG pH (7.31-7.41) Ionized Calcium (1.15-1.33) mmol/L O2 Delivery Device FiO2 EPAP cmH2O IPAP cmH2O Sodium (135-145) mmol/L Potassium 3.8 3.7 3.6 (3.5-4.5) mmol/L Chloride (101-111) mmol/L Carbon Dioxide (21-32) mmol/L Anion Gap (6-13) BUN (6-20) mg/dL Creatinine (0.6-1.3) mg/dL Estimated GFR (MDRD) (>89) Glucose (74-104) mg/dL Calcium (8.5-10.3) mg/dL Phosphorus (2.5-5.0) mg/dL Magnesium (1.7-2.3) mg/dL C-Reactive Protein (<0.5) mg/dL B-Natriuretic Peptide (5-100) pg/mL Blood Type Antibody Screen Crossmatch IS Only 04/30/23 Range/Units 07:51 WBC (4.8-10.8) x10^3/uL RBC (4.70-6.10) 10^6/uL Hgb (14.0-18.0) g/dL Hct (42.0-52.0) % MCV (80.0-94.0) fL MCH (27.0-31.0) pg MCHC (32.0-36.0) g/dL RDW (12.0-15.0) % Plt Count (130-450) 10^3/uL MPV (7.4-11.4) fL Neut # (Auto) Lymph # (Auto) Robertson # (Auto) Eos # (Auto) Baso # (Auto) Absolute Nucleated RBC Total Counted Band Neuts % (Manual) (0 - 10) % Reactive Lymphs % (Man) % Abnorm Lymph % (Manual) % Nucleated RBC % Neutrophils # (Manual) (1.5-6.6) 10^3/uL Lymphocytes # (Manual) (1.5-3.5) 10^3/uL Monocytes # (Manual) (0.0-1.0) 10^3/uL Eosinophils # (Manual) (0-0.7) 10^3/uL Basophils # (Manual) (0-0.1) 10^3/uL Differential Comment Platelet Estimate (NORMAL) Platelet Morphology (NORMAL) RBC Morph Micro Appear (NORMAL) Bld Gas Analysis Time Sample Site ABG pH (7.35-7.45) ABG pCO2 (34-45) mmHg ABG pO2 (80-100) mmHg ABG HCO3 (22.0-26.0) mmol/L ABG Total CO2 (21.0-29.0) MMOL/L ABG O2 Saturation (94-98) % ABG Base Excess (-2.0-3.0) mmol/L [place]quin Test VBG pH (7.31-7.41) Ionized Calcium (1.15-1.33) mmol/L O2 Delivery Device FiO2 EPAP cmH2O IPAP cmH2O Sodium (135-145) mmol/L Potassium (3.5-4.5) mmol/L Chloride (101-111) mmol/L Carbon Dioxide (21-32) mmol/L Anion Gap (6-13) BUN (6-20) mg/dL Creatinine (0.6-1.3) mg/dL Estimated GFR (MDRD) (>89) Glucose (74-104) mg/dL Calcium (8.5-10.3) mg/dL Phosphorus (2.5-5.0) mg/dL Magnesium (1.7-2.3) mg/dL C-Reactive Protein (<0.5) mg/dL B-Natriuretic Peptide (5-100) pg/mL Blood Type O POSITIVE Antibody Screen NEGATIVE Crossmatch IS Only See Detail - Diagnostic Imaging Diagnostic Imaging Results: positive: Final report reviewed Diagnostic Imaging Comments: Head CT has no sign of brain metastasis CTA has no evidence of large vessel PE Has Bilateral pleural effusion Sepsis Event Note (H) - Evaluation Current Stage of Sepsis: Septic shock Possible source of Sepsis: positive: Pulmonary Sepsis Associated Organ Dysfunction: Respiratory failure, Metabolic encephalopathy New atrial fibrillation paroxysmal Assessment/Plan - Problem List (1) Septic shock Impression: Worsening, now in need of 2 vasopressors Levophed and dobutamine So far map is able to be held over 65 Further discussion with patient family regarding the guarded prognosis and the goal of care (2) Paroxysmal atrial fibrillation with rapid ventricular response Impression: New onset, on 04/30/2023 had episode of RVR of heart rate 140s. Was given digoxin and amiodarone, patient resumed sinus after treatment. However last night had short episode of RVR A-fib, even on amiodarone drip. Continue telemetry monitoring Continue amiodarone drip Give digoxin if RVR Close monitoring electrolytes, optimize potassium, magnesium levels with the goal of potassium over 4, magnesium over 2 (3) Anemia Impression: Stable hemoglobin, however FOBT positive, With recent diagnosed GI bleed and current septic shock status, patient has high risk for mortality Continue give Protonix twice daily, Monitoring hemoglobin level, transfuse if hemoglobin less than 8 (4) Lesion of lung Impression: Left lower lung mass, can cause obstructive pneumonia Has bilateral pleural effusion, can be from CHF versus metastasis Not stable for paracentesis (5) Anasarca Impression: Improved, less swelling of arms and legs. Give albumin, then Lasix Watch volume status Give Lasix as needed
--- NOTE | 2023-05-01 08:06 | XRAY Report ---
PROCEDURE: Chest 1 View X-Ray INDICATIONS: respiratory failure follow up TECHNIQUE: One view of the chest was acquired. COMPARISON: None. FINDINGS: Surgical changes and devices: None. Lungs and pleura: Stable moderate pleural effusions and bibasilar atelectasis. Mediastinum: Moderate hiatal hernia. Bones and chest wall: No suspicious bony lesions. Overlying soft tissues appear unremarkable. IMPRESSION: Stable moderate pleural effusions and bibasilar atelectasis. Reviewed by: Matheus Dey on 05/01/2023 8:04 AM PDT Approved by: Matheus Dey on 05/01/2023 8:04 AM PDT Station ID: [id number]
[2023-05-01] MEDS: NICOTINE 21 MG PATCH TOP SCH (08:11)
[2023-05-01] MEDS: PANTOPRAZOLE 40 MG VIAL IVP SCH ×4 (08:11→21:21)
[2023-05-01] MEDS: SODIUM CHLORIDE FLUSH 0.9% 10 ML SYRINGE IVP SCH ×2 (08:11→16:53)
[2023-05-01] MEDS: FUROSEMIDE 40 MG/4 ML VIAL IVP SCH (08:11)
[2023-05-01] MEDS: ASCORBIC ACID 500 MG TABLET PO SCH (08:12)
[2023-05-01] MEDS: SACCHAROMYCES BOULARDII 250 MG CAPSULE PO SCH ×2 (08:12→15:12)
[2023-05-01] MEDS: guaiFENesin 600 MG TABLET PO SCH ×2 (08:12→20:25)
[2023-05-01] MEDS: THIAMINE 100 MG TABLET PO SCH (08:12)
[2023-05-01] MEDS: MULTIVITAMIN W/MINERALS TABLET PO SCH (08:12)
[2023-05-01] MEDS: TAMSULOSIN 0.4 MG CAPSULE PO SCH (08:12)
[2023-05-01] MEDS ORDERED: ALBUMIN 25% 12.5 GM/50 ML VIAL IV STA (08:28)
[2023-05-01] MEDS: AMIODARONE 360 MG/200 ML 200 ML IV SCH ×2 (08:45→20:18)
[2023-05-01] MEDS: NORepinephrine 8 MG in DEXTROSE 5% 250ML IV SCH ×2 (08:45→15:45)
[2023-05-01] MEDS: DOBUTamine 500 MG/250 ML 500 MG/250 ML BAG IV SCH ×2 (08:46→12:13)
--- NOTE | 2023-05-01 10:08 | CT Report ---
PROCEDURE: ANGIO CHEST W/WO INDICATIONS: PE suspect CONTRAST: 100ml omni 300 TECHNIQUE: After the administration of intravenous contrast, 2 mm axial images were acquired from the pulmonary apices to the posterior costophrenic angles during the arterial phase. In addition, 1 mm lung kernel and 5 mm soft tissue kernel reconstructions were performed. 3-dimensional coronal oblique maximum int ensity projection (MIP) reformats, 8 mm axial MIP, and 5 mm coronal and sagittal MPR reformats were t hen performed through the thorax. For radiation dose reduction, the following was used: automated exp osure control, adjustment of mA and/or kV according to patient size. COMPARISON: CT angiogram of the abdomen and pelvis dated 04/15/2023 FINDINGS: Image quality: Suboptimal. Both arms are at the patient's sides. There is extensive artifact. Large vessels: No filling defects within the opacified pulmonary arteries, accounting for motion and contrast timing. No moderate or large pulmonary emboli identified. No evidence of acute aortic syndro me or aortic aneurysm. Lungs and pleura: Bilateral basilar atelectasis and consolidation and pleural fluid. There are modera tely large bilateral pleural effusions. Mediastinum: Heart size is normal. No pericardial effusion. No large vessel abnormality. There are mu ltiple enlarged prevascular lymph nodes. Findings are suspicious for malignancy. This includes a 2.2 cm lymph node on image 75/3, a 1.6 x 3.0 cm lymph node on image 79/3, and a anterior 1.3 x 2.5 cm lym ph node on image 77/3. There is a high left-sided mediastinal lymph node on image 55/3 which measures 2.3 cm. At least moderate hiatal hernia. Chest wall and lower neck: Thyroid is unremarkable. There is left supraclavicular adenopathy. Bones: Diffuse sclerotic bony metastatic disease. Upper Abdomen: Unremarkable. IMPRESSION: 1. Suboptimal study for pulmonary emboli. No moderate or large pulmonary emboli identified. 2. Bibasilar atelectasis and consolidation. Moderately large bilateral pleural effusions. Findings co nsistent with congestive heart failure. 3. Diffuse sclerotic bony metastatic disease. 4. Mediastinal adenopathy and left supraclavicular adenopathy is suspicious for possible malignancy. Consider possible prostate carcinoma versus lymphoma as an etiology. Reviewed by: Rajesh Pina MD on 05/01/2023 10:07 AM PDT Approved by: Rajesh Pina MD on 05/01/2023 10:07 AM PDT Station ID: [id number]
--- NOTE | 2023-05-01 10:17 | CT Report ---
PROCEDURE: HEAD W/WO INDICATIONS: to rule out brain mets TECHNIQUE: 4.5 mm thick angled axial sections acquired from the foramen magnum to the vertex before and after th e administration of intravenous contrast. For radiation dose reduction, the following was used: aut omated exposure control, adjustment of mA and/or kV according to patient size. CONTRAST: 100ml omni 300 COMPARISON: None. FINDINGS: Image quality: Motion artifact is noted. There is streak artifact seen through the skull base. CSF Spaces: Basal cisterns are patent. There is a left posterior fossa arachnoid cyst seen that cros ses the midline and measures at least 8 cm. No associated abnormal enhancement can be seen. Ventricle s are normal in size and shape. Brain: No midline shift. No intracranial bleeds or masses. No abnormal intracranial enhancement. Guy-white interface appears normal. Skull and face: Calvarium and visualized facial bones appear intact, without suspicious lesions. Sinuses: Visualized sinuses and mastoids are clear. IMPRESSION: Motion limited study, without masses or abnormal enhancement to the limits of CT. If it would be helpful for clinical management decision making, please consider a dedicated brain MRI for further evaluation, as it is much more sensitive for intracranial metastases (assuming that ther e is no contraindication). Prominent posterior fossa arachnoid cyst noted, which is considered to be benign. Reviewed by: Carlos Mccarthy MD on 05/01/2023 9:15 AM [facility]EL[facility] Approved by: Carlos Mccarthy MD on 05/01/2023 9:15 AM [facility] Station ID: [id number]
[2023-05-01 10:20] LABS: MAGNESIUM 1.9 mg/dL (1.7-2.3); POTASSIUM 3.7 mmol/L (3.5-4.5)
--- NOTE | 2023-05-01 10:57 | CT Report ---
PROCEDURE: ABDOMEN/PELVIS W INDICATIONS: metastatic disease follow up CONTRAST: 100ml omni 300 TECHNIQUE: After the administration of intravenous contrast, 5 mm thick sections acquired from the diaphragms to the symphysis. 5 mm thick coronal and sagittal reformats were acquired. For radiation dose reducti on, the following was used: automated exposure control, adjustment of mA and/or kV according to jona ent size. COMPARISON: CT angiogram abdomen and pelvis 04/15/2023 FINDINGS: Image quality: Decreased due to arm position and patient breathing motion. Lung bases and heart: Normal heart size. Moderate visible coronary artery calcification. Tortuous tho racic aorta. Multiple moderately prominent posterior mediastinal, periaortic lymph nodes. Small bilat eral pleural effusions and bibasilar consolidations. Moderate-sized hiatal hernia. Liver: 2.0 cm anterior left lobe hypodensity. No suspicious enhancement. Gallbladder and biliary tree: Normal gallbladder and nondilated biliary tree. Spleen: Small irregular patch of probable splenic tissue in the left upper quadrant medially. Pancreas: Normal. Adrenals: No adrenal nodule. Kidneys and ureters: A collection of nonobstructing punctate calcifications in the lower pole left ki dney. Partially exophytic left upper and lower pole renal cysts Bowel and peritoneum: Suspicious thickening along the left aspect of the distal rectal wall. There is mild presacral fascial thickening posteriorly. Diverticulosis diffusely throughout most of the colon which is decompressed. A normal appendix is seen. No small bowel obstruction. Lymph nodes: Several prominent retroperitoneal lymph nodes at and distal to the left renal vein. The largest measures 2.3 cm short axis, 2/32. Vessels: Normal caliber IVC and abdominal aorta. 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 No signific ant change. Right common femoral line. PELVIS Reproductive organs: Mild to moderate prostate gland enlargement. Bladder: Partially decompressed urinary bladder with irregular anterior wall thickening. A Lopez cath eter is present. Pelvic lymph nodes: Right iliac chain lymph nodes. There are also small prevesicular nodules, presuma lawanda lymph nodes, 2/ and 2/71. Bones: Diffusely heterogeneous marrow signal suggesting innumerable sclerotic metastases Other: No significant ventral or inguinal hernia. IMPRESSION: 1. Persistent pelvic and retroperitoneal adenopathy. 2. New rectal wall thickening and presacral fat stranding. This may be due to infection, recent proce dure or hemorrhage. 3. Irregular urinary bladder wall thickening. Consider cystitis or neoplasm. 4. Increased size of left consolidation and effusion with development of right lung base consolidatio n and effusion. 5. No change to other incidental, nonacute findings. Reviewed by: Marquita Chavez MD on 05/01/2023 10:56 AM PDT Approved by: Marquita Chavez MD on 05/01/2023 10:56 AM PDT Station ID: [id number]
[2023-05-01] MEDS: LORazepam 2 MG/ML VIAL IVP PRN (14:43)
[2023-05-01] MEDS ORDERED: iohexoL-300 100 ML VIAL IVP ONE (16:01)
[2023-05-02] MEDS: NORepinephrine 8 MG in DEXTROSE 5% 250ML IV SCH ×3 (00:08→21:12)
[2023-05-02] MEDS: LORazepam 2 MG/ML VIAL IVP PRN ×3 (00:08→13:24)
[2023-05-02] MEDS: SODIUM CHLORIDE FLUSH 0.9% 10 ML SYRINGE IVP SCH ×3 (00:15→15:57)
[2023-05-02] MEDS: SODIUM CHLORIDE FLUSH 0.9% 10 ML SYRINGE IVP PRN ×3 (04:50→21:06)
[2023-05-02 05:24] LABS: BASOPHILS % (AUTO) 0.2 %; EOSINOPHILS # (AUTO) 0.2 10^3/uL (0.0-0.7); EOSINOPHILS % (AUTO) 1.3 %; HCT - HEMATOCRIT 27.6 % (42.0-52.0); HGB - HEMOGLOBIN 8.3 g/dL (14.0-18.0); LYMPHOCYTES # (AUTO) 0.3 10^3/uL (1.5-3.5); LYMPHOCYTES % (AUTO) 2.7 %; MEAN CORPUSCULAR HEMOGLOBIN 32.4 pg (27.0-31.0); MEAN CORPUSCULAR HGB CONC 30.1 g/dL (32.0-36.0); MEAN CORPUSCULAR VOLUME 107.8 fL (80.0-94.0); MEAN PLATELET VOLUME 9.5 fL (7.4-11.4); MONOCYTES # (AUTO) 1.3 10^3/uL (0.0-1.0); MONOCYTES % (AUTO) 11.4 %; NEUTROPHILS # (AUTO) 9.7 10^3/uL (1.5-6.6); NEUTROPHILS % (AUTO) 83.3 %; NRBC ABSOLUTE COUNT (AUTO) 0.02 x10^3/uL; NUCLEATED RED BLOOD CELLS AUTO 0.2 /100WBC; PLT - PLATELET COUNT 121 10^3/uL (130-450); RED BLOOD COUNT 2.56 10^6/uL (4.70-6.10); RED CELL DISTRIBUTION WIDTH 19.9 % (12.0-15.0); WHITE BLOOD COUNT 11.6 x10^3/uL (4.8-10.8)
[2023-05-02 05:38] LABS: INR 2.2 (0.8-1.2); PT - PROTHROMBIN TIME 22.8 secs (9.9-12.6)
[2023-05-02 05:40] LABS: VBG PH 7.435 (7.31-7.41)
[2023-05-02 05:46] LABS: CREATININE 0.9 mg/dL (0.6-1.3); MAGNESIUM 1.8 mg/dL (1.7-2.3); PHOSPHORUS 1.9 mg/dL (2.5-5.0); POTASSIUM 3.6 mmol/L (3.5-4.5)
[2023-05-02 05:48] LABS: CALCIUM, IONIZED 1.54 mmol/L (1.15-1.33)
[2023-05-02] MEDS ORDERED: MAGNESIUM SULFATE 2 GRAM 2 GM/50 ML BAG IV ONE (05:51)
[2023-05-02 06:26] LABS: ABG HCO3 31.8 mmol/L (22.0-26.0); ABG PCO2 43 mmHg (34-45); ABG PH 7.49 (7.35-7.45); ABG PO2 67 mmHg (80-100); ABG TCO2 33.1 MMOL/L (21.0-29.0)
[2023-05-02 06:27] LABS: ABG BASE EXCESS 7.8 mmol/L (-2.0-3.0); ABG MODE OF VENTILATION SYNCHRONOUS/TIMES; ABG OXYGEN SATURATION 94 % (94-98); ABG RESPIRATORY RATE 14 b/min; ALLEN TEST POSITIVE
[2023-05-02] MEDS: PIPERACILLIN/TAZOBACTAM 4.5 GM in SODIUM CHLORIDE 0.9% MINIBAG 100 ML IV SCH ×3 (07:06→23:03)
[2023-05-02] MEDS: TAMSULOSIN 0.4 MG CAPSULE PO SCH (07:28)
[2023-05-02] MEDS: guaiFENesin 600 MG TABLET PO SCH ×2 (07:28→20:10)
[2023-05-02] MEDS: SACCHAROMYCES BOULARDII 250 MG CAPSULE PO SCH ×2 (07:28→15:57)
[2023-05-02] MEDS: MULTIVITAMIN W/MINERALS TABLET PO SCH (07:28)
[2023-05-02] MEDS: THIAMINE 100 MG TABLET PO SCH (07:28)
[2023-05-02] MEDS: ASCORBIC ACID 500 MG TABLET PO SCH (07:28)
[2023-05-02] MEDS ORDERED: POTASSIUM PHOSPHATE 15 MMOL in SODIUM CHLORIDE 0.9% 250 ML IV ONE (08:00)
[2023-05-02] MEDS: NICOTINE 21 MG PATCH TOP SCH (08:07)
[2023-05-02] MEDS: FUROSEMIDE 40 MG/4 ML VIAL IVP SCH (08:08)
[2023-05-02] MEDS: PANTOPRAZOLE 40 MG VIAL IVP SCH ×2 (08:08→21:05)
[2023-05-02] MEDS: AMIODARONE 360 MG/200 ML 200 ML IV SCH ×2 (08:20→19:27)
[2023-05-02] MEDS: LACTATED RINGERS 1,000 ML IV SCH ×2 (09:42→23:03)
[2023-05-02] MEDS: DOBUTamine 500 MG/250 ML 500 MG/250 ML BAG IV SCH (13:10)
[2023-05-02] MEDS: NICOTINE 14 MG PATCH TOP SCH (13:13)
[2023-05-02] MEDS: MORPHINE 2 MG/ML CARPUJECT IVP PRN ×2 (14:09→18:41)
[2023-05-02] MEDS: POTASSIUM CHLOR 20 MEQ/100 ML 20 MEQ/100 ML BAG IV SCH ×2 (14:54→15:55)
--- NOTE | 2023-05-02 17:06 | PROVIDER PROGRESS NOTE ---
Subjective - Subjective Pt reports feeling: No change (Respiratory rate is between 30 and 40 today. He remains on BiPAP most of the day. He is awake for the nurses, cannot swallow safely to give po meds) Objective - Vital Signs/Intake & Output Reviewed Vital Signs: Yes Vital Signs: Vital Signs Temp Pulse Pulse Resp BP Pulse Ox O2 Flow Rate 05/02/23 17:00 84 39 H 106/73 100 05/02/23 16:00 36.8 C 84 35 H 98/58 L 100 05/02/23 15:30 84 94/54 L 05/02/23 15:27 82 05/02/23 15:00 82 26 H 100/67 97 8 05/02/23 14:39 80 92/45 L 05/02/23 14:32 80 91/46 L 05/02/23 14:15 77 94/49 L 05/02/23 14:00 83 25 H 80/63 L 99 Intake & Output: Intake & Output 04/29/23 04/30/23 05/01/23 05/02/23 23:59 23:59 23:59 23:59 Intake Total 3059.822 3676.474 4209.908 2316.704 Output Total 2510 2235 2845 1780 Balance 491.501 5385.474 1364.908 536.704 - Objective General Appearance: positive: Moderate distress (He is tachypneic, RR 30-40 today) Eyes Bilateral: positive: No lid inflammation ENT: positive: No signs of dehydration, Other (He is on BiPAP machine) Neck: positive: Trachea midline Respiratory: positive: Other (Poor air movement but no wheezing, he is tachypnea) Cardiovascular: positive: No murmur (Distant heart sounds due to COPD) Abdomen: positive: No distention Skin: positive: Warm, Dry Extremities: positive: Other (1+ edema) - Lab Results Fish Bones: 05/02/23 04:25 05/02/23 17:54 Other Labs: Lab Results x24hrs 05/02/23 05/02/23 05/02/23 Range/Units 14:00 14:00 09:40 WBC (4.8-10.8) x10^3/uL RBC (4.70-6.10) 10^6/uL Hgb (14.0-18.0) g/dL Hct (42.0-52.0) % MCV (80.0-94.0) fL MCH (27.0-31.0) pg MCHC (32.0-36.0) g/dL RDW (12.0-15.0) % Plt Count (130-450) 10^3/uL MPV (7.4-11.4) fL Neut # (Auto) (1.5-6.6) 10^3/uL Lymph # (Auto) (1.5-3.5) 10^3/uL Hickman # (Auto) (0.0-1.0) 10^3/uL Eos # (Auto) (0.0-0.7) 10^3/uL Baso # (Auto) (0.0-0.1) 10^3/uL Absolute Nucleated RBC x10^3/uL Nucleated RBC % /100WBC PT (9.9-12.6) secs INR (0.8-1.2) Bld Gas Analysis Time Sample Site ABG pH (7.35-7.45) ABG pCO2 (34-45) mmHg ABG pO2 (80-100) mmHg ABG HCO3 (22.0-26.0) mmol/L ABG Total CO2 (21.0-29.0) MMOL/L ABG O2 Saturation (94-98) % ABG Base Excess (-2.0-3.0) mmol/L Juaquin Test VBG pH (7.31-7.41) Ionized Calcium (1.15-1.33) mmol/L Respiration Rate b/min O2 Delivery Device Vent Mode FiO2 Pressure Support Vent cmH2O EPAP cmH2O IPAP cmH2O Sodium (135-145) mmol/L Potassium 3.4 L (3.5-4.5) mmol/L Chloride (101-111) mmol/L Carbon Dioxide (21-32) mmol/L Anion Gap (6-13) BUN (6-20) mg/dL Creatinine (0.6-1.3) mg/dL Estimated GFR (MDRD) (>89) Glucose (74-104) mg/dL Calcium (8.5-10.3) mg/dL Phosphorus 2.9 (2.5-5.0) mg/dL Magnesium 2.0 (1.7-2.3) mg/dL B-Natriuretic Peptide (5-100) pg/mL 05/02/23 05/02/23 05/02/23 Range/Units 06:05 04:25 04:25 WBC (4.8-10.8) x10^3/uL RBC (4.70-6.10) 10^6/uL Hgb (14.0-18.0) g/dL Hct (42.0-52.0) % MCV (80.0-94.0) fL MCH (27.0-31.0) pg MCHC (32.0-36.0) g/dL RDW (12.0-15.0) % Plt Count (130-450) 10^3/uL MPV (7.4-11.4) fL Neut # (Auto) (1.5-6.6) 10^3/uL Lymph # (Auto) (1.5-3.5) 10^3/uL Hickman # (Auto) (0.0-1.0) 10^3/uL Eos # (Auto) (0.0-0.7) 10^3/uL Baso # (Auto) (0.0-0.1) 10^3/uL Absolute Nucleated RBC x10^3/uL Nucleated RBC % /100WBC PT 22.8 H (9.9-12.6) secs INR 2.2 H (0.8-1.2) Bld Gas Analysis Time 0616 Sample Site RIGHT RADIAL ABG pH 7.49 H (7.35-7.45) ABG pCO2 43 (34-45) mmHg ABG pO2 67 L (80-100) mmHg ABG HCO3 31.8 H (22.0-26.0) mmol/L ABG Total CO2 33.1 H (21.0-29.0) MMOL/L ABG O2 Saturation 94 (94-98) % ABG Base Excess 7.8 H (-2.0-3.0) mmol/L Juaquin Test POSITIVE VBG pH 7.435 H (7.31-7.41) Ionized Calcium 1.54 H* (1.15-1.33) mmol/L Respiration Rate 14 b/min O2 Delivery Device BiPAP Vent Mode SYNCHRONOUS/TIMES FiO2 30.00 Pressure Support Vent 9 cmH2O EPAP 5 cmH2O IPAP 14 cmH2O Sodium (135-145) mmol/L Potassium (3.5-4.5) mmol/L Chloride (101-111) mmol/L Carbon Dioxide (21-32) mmol/L Anion Gap (6-13) BUN (6-20) mg/dL Creatinine (0.6-1.3) mg/dL Estimated GFR (MDRD) (>89) Glucose (74-104) mg/dL Calcium (8.5-10.3) mg/dL Phosphorus (2.5-5.0) mg/dL Magnesium (1.7-2.3) mg/dL B-Natriuretic Peptide (5-100) pg/mL 05/02/23 05/02/23 05/02/23 Range/Units 04:25 04:25 04:25 WBC 11.6 H (4.8-10.8) x10^3/uL RBC 2.56 L (4.70-6.10) 10^6/uL Hgb 8.3 L (14.0-18.0) g/dL Hct 27.6 L (42.0-52.0) % MCV 107.8 H (80.0-94.0) fL MCH 32.4 H (27.0-31.0) pg MCHC 30.1 L (32.0-36.0) g/dL RDW 19.9 H (12.0-15.0) % Plt Count 121 L (130-450) 10^3/uL MPV 9.5 (7.4-11.4) fL Neut # (Auto) 9.7 H (1.5-6.6) 10^3/uL Lymph # (Auto) 0.3 L (1.5-3.5) 10^3/uL Hickman # (Auto) 1.3 H (0.0-1.0) 10^3/uL Eos # (Auto) 0.2 (0.0-0.7) 10^3/uL Baso # (Auto) 0.0 (0.0-0.1) 10^3/uL Absolute Nucleated RBC 0.02 x10^3/uL Nucleated RBC % 0.2 /100WBC PT (9.9-12.6) secs INR (0.8-1.2) Bld Gas Analysis Time Sample Site ABG pH (7.35-7.45) ABG pCO2 (34-45) mmHg ABG pO2 (80-100) mmHg ABG HCO3 (22.0-26.0) mmol/L ABG Total CO2 (21.0-29.0) MMOL/L ABG O2 Saturation (94-98) % ABG Base Excess (-2.0-3.0) mmol/L Juaquin Test VBG pH (7.31-7.41) Ionized Calcium (1.15-1.33) mmol/L Respiration Rate b/min O2 Delivery Device Vent Mode FiO2 Pressure Support Vent cmH2O EPAP cmH2O IPAP cmH2O Sodium 140 (135-145) mmol/L Potassium 3.6 (3.5-4.5) mmol/L Chloride 108 (101-111) mmol/L Carbon Dioxide 32 (21-32) mmol/L Anion Gap 0.0 L (6-13) BUN 19 (6-20) mg/dL Creatinine 0.9 (0.6-1.3) mg/dL Estimated GFR (MDRD) 80 L (>89) Glucose 126 H (74-104) mg/dL Calcium 11.0 H (8.5-10.3) mg/dL Phosphorus 1.9 L (2.5-5.0) mg/dL Magnesium 1.8 (1.7-2.3) mg/dL B-Natriuretic Peptide 613 H (5-100) pg/mL 05/01/23 05/01/23 Range/Units 20:23 16:47 WBC (4.8-10.8) x10^3/uL RBC (4.70-6.10) 10^6/uL Hgb (14.0-18.0) g/dL Hct (42.0-52.0) % MCV (80.0-94.0) fL MCH (27.0-31.0) pg MCHC (32.0-36.0) g/dL RDW (12.0-15.0) % Plt Count (130-450) 10^3/uL MPV (7.4-11.4) fL Neut # (Auto) (1.5-6.6) 10^3/uL Lymph # (Auto) (1.5-3.5) 10^3/uL Hickman # (Auto) (0.0-1.0) 10^3/uL Eos # (Auto) (0.0-0.7) 10^3/uL Baso # (Auto) (0.0-0.1) 10^3/uL Absolute Nucleated RBC x10^3/uL Nucleated RBC % /100WBC PT (9.9-12.6) secs INR (0.8-1.2) Bld Gas Analysis Time Sample Site ABG pH (7.35-7.45) ABG pCO2 (34-45) mmHg ABG pO2 (80-100) mmHg ABG HCO3 (22.0-26.0) mmol/L ABG Total CO2 (21.0-29.0) MMOL/L ABG O2 Saturation (94-98) % ABG Base Excess (-2.0-3.0) mmol/L Juaquin Test VBG pH (7.31-7.41) Ionized Calcium (1.15-1.33) mmol/L Respiration Rate b/min O2 Delivery Device Vent Mode FiO2 Pressure Support Vent cmH2O EPAP cmH2O IPAP cmH2O Sodium (135-145) mmol/L Potassium 4.0 3.8 (3.5-4.5) mmol/L Chloride (101-111) mmol/L Carbon Dioxide (21-32) mmol/L Anion Gap (6-13) BUN (6-20) mg/dL Creatinine (0.6-1.3) mg/dL Estimated GFR (MDRD) (>89) Glucose (74-104) mg/dL Calcium (8.5-10.3) mg/dL Phosphorus (2.5-5.0) mg/dL Magnesium (1.7-2.3) mg/dL B-Natriuretic Peptide (5-100) pg/mL Sepsis Event Note (H) - Evaluation Current Stage of Sepsis: Septic shock Possible source of Sepsis: positive: Pulmonary Assessment/Plan - Problem List (1) Septic shock Impression: He remains on 2 vasopressors Levophed and Dobutamine, which is keeping his MAP >65 Etiology is unclear. He does have an infiltrate plus lung mass so this could be pneumonia source. He did have abnormal UA but the urine culture grew nothing. Blood cultures are negative to date. Today I had further discussion with NU Rodriguez, and other son Duncan, regarding the poor prognosis and also plan of care. I explained that the pt would need intubation today because he is tiring with resp rate 40 despite being on BIPAP. However with his stage IV cancer and postobstructive pneumonia and septic shock, he has a low chance of surviving this hospitalization. I offered to start comfort care. The DPOA and his brother want to follow his father's wish "to fight" and also want to still be able to communicate with the patient to decide if a ventilator is really desired. The DPOA decided to not yet put patient on a ventilator today, but wants everything else possible to be done. Plan: Continue empiric iv Zosyn I will add iv Vancomycin empiric coverage for HCAP, since he was just hospitalized 2 weeks ago Continue with pressors and gentle IV LR (2) Acute respiratory failure with hypoxia Impression: The patient has been on BiPAP in the ICU. He saturates 94 to 100% ABG today shows adequate pH and saturation (all labs were reviewed). Plan: Remain on BiPAP or will consider intubation and ventilator use (3) HCAP Impression: This is the presumed cause of his sepsis and resp distress Plan: Continue empiric iv Zosyn I will add iv Vancomycin empiric coverage for HCAP, since he was just hospitalized 2 weeks ago (4) Atrial fibrillation with rapid ventricular response Impression: New onset on 04/30/2023, he had episode of Afib with RVR, heart rate 140s. Was given digoxin and amiodarone, patient went into sinus after treatment. The Echo was done today and shows normal LV size and function and a dilated RV with pulmonary hypertension, PA pressure 51 mmHg Plan: Continue telemetry monitoring Continue amiodarone drip Give digoxin if RVR Cont monitoring electrolytes, optimize potassium, magnesium levels with the goal of potassium over 4, magnesium over 2 (5) Anemia Impression: Stable hemoglobin, however his adi guaic test is positive. He had the recent admission for melena. 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 He was not even discharged from SNF to get more malignancy W/U, before being admitted this time. (8) Anasarca Impression: Less swelling of arms and legs after treatment The Echo was done today and shows normal LV size and function but he has cor pulmonale and pulm HTN Plan: If needed gabriel give albumin, then Lasix as needed Watch volume status (9) BPH with elevated PSA Impression: As per Hx (10) Chronic indwelling Lopez catheter Impression: As per Hx. The last (recent) admission was for a CAUTI (11) COPD with hypoxia Impression: Unknown if he has ever had PFTs but he was discharged recently on bronchodilators and a Medrol dose pack after a COPD exacerbation. He did not qualify for Home O2 on day of discharge. (12) Pulmonary HTN Impression: The Echo was done today and shows a dilated RV with pulmonary hypertension, PA pressure 51 mmHg His cor pulmonale suggest that he has had COPD.
[2023-05-02] MEDS: VANCOMYCIN INJ 1 GM in SODIUM CHLORIDE 0.9% 250 ML IV SCH (18:18)
[2023-05-02] MEDS ORDERED: POTASSIUM CHLOR 20 MEQ/100 ML 20 MEQ/100 ML BAG IV ONE (18:46)
[2023-05-03] MEDS: MORPHINE 2 MG/ML CARPUJECT IVP PRN ×4 (00:11→16:48)
[2023-05-03] MEDS: SODIUM CHLORIDE FLUSH 0.9% 10 ML SYRINGE IVP SCH ×4 (00:11→16:49)
[2023-05-03] MEDS: SODIUM CHLORIDE FLUSH 0.9% 10 ML SYRINGE IVP PRN ×2 (04:22→08:55)
[2023-05-03 04:29] LABS: BASOPHILS % (AUTO) 0.2 %; EOSINOPHILS # (AUTO) 0.2 10^3/uL (0.0-0.7); EOSINOPHILS % (AUTO) 1.7 %; HCT - HEMATOCRIT 27.3 % (42.0-52.0); HGB - HEMOGLOBIN 8.3 g/dL (14.0-18.0); LYMPHOCYTES # (AUTO) 0.6 10^3/uL (1.5-3.5); LYMPHOCYTES % (AUTO) 5.6 %; MEAN CORPUSCULAR HEMOGLOBIN 32.5 pg (27.0-31.0); MEAN CORPUSCULAR HGB CONC 30.4 g/dL (32.0-36.0); MEAN CORPUSCULAR VOLUME 107.1 fL (80.0-94.0); MEAN PLATELET VOLUME 9.8 fL (7.4-11.4); MONOCYTES # (AUTO) 1.2 10^3/uL (0.0-1.0); MONOCYTES % (AUTO) 12.1 %; NEUTROPHILS # (AUTO) 7.9 10^3/uL (1.5-6.6); NEUTROPHILS % (AUTO) 79.3 %; NRBC ABSOLUTE COUNT (AUTO) 0.04 x10^3/uL; NUCLEATED RED BLOOD CELLS AUTO 0.4 /100WBC; PLT - PLATELET COUNT 106 10^3/uL (130-450); RED BLOOD COUNT 2.55 10^6/uL (4.70-6.10); RED CELL DISTRIBUTION WIDTH 19.2 % (12.0-15.0)
[2023-05-03 04:41] LABS: CALCIUM 10.6 mg/dL (8.5-10.3); CREATININE 0.9 mg/dL (0.6-1.3); MAGNESIUM 1.9 mg/dL (1.7-2.3); PHOSPHORUS 2.8 mg/dL (2.5-5.0)
[2023-05-03 04:42] LABS: CALCIUM, IONIZED 1.45 mmol/L (1.15-1.33); VBG PH 7.409 (7.31-7.41)
[2023-05-03 06:35] LABS: ABG PH 7.46 (7.35-7.45)
[2023-05-03 06:36] LABS: ABG BASE EXCESS 7.7 mmol/L (-2.0-3.0); ABG HCO3 32.3 mmol/L (22.0-26.0); ABG OXYGEN SATURATION 96 % (94-98); ABG PCO2 46 mmHg (34-45); ABG PO2 77 mmHg (80-100); ABG TCO2 33.7 MMOL/L (21.0-29.0); ALLEN TEST POSITIVE
[2023-05-03] MEDS: PIPERACILLIN/TAZOBACTAM 4.5 GM in SODIUM CHLORIDE 0.9% MINIBAG 100 ML IV SCH ×3 (06:43→22:51)
[2023-05-03] MEDS: AMIODARONE 360 MG/200 ML 200 ML IV SCH ×2 (07:34→18:19)
[2023-05-03] MEDS: PANTOPRAZOLE 40 MG VIAL IVP SCH ×2 (08:54→20:36)
[2023-05-03] MEDS: NICOTINE 14 MG PATCH TOP SCH (08:55)
[2023-05-03] MEDS: FUROSEMIDE 40 MG/4 ML VIAL IVP SCH (08:55)
[2023-05-03] MEDS: MULTIVITAMIN W/MINERALS TABLET PO SCH (09:12)
[2023-05-03] MEDS: SACCHAROMYCES BOULARDII 250 MG CAPSULE PO SCH (09:12)
[2023-05-03] MEDS: THIAMINE 100 MG TABLET PO SCH (09:13)
[2023-05-03] MEDS: TAMSULOSIN 0.4 MG CAPSULE PO SCH (09:13)
[2023-05-03] MEDS: guaiFENesin 600 MG TABLET PO SCH (09:13)
[2023-05-03] MEDS: ASCORBIC ACID 500 MG TABLET PO SCH (09:13)
[2023-05-03] MEDS: LACTATED RINGERS 1,000 ML IV SCH (12:27)
--- NOTE | 2023-05-03 13:02 | PROVIDER PROGRESS NOTE ---
Subjective - Subjective Pt reports feeling: No change (Respiratory rate is between 30 and 50 today. He remains on BiPAP most of the day. He is awake for the nurses, cannot swallow safely to give po meds. He squeezes sons hand in communication) Objective - Vital Signs/Intake & Output Vital Signs: Vital Signs Temp Pulse Pulse Resp BP Pulse Ox O2 Flow Rate 05/03/23 12:40 89 05/03/23 12:00 36.8 C 84 39 H 97/54 L 96 05/03/23 11:52 92/54 L 05/03/23 11:24 105/54 L 05/03/23 11:00 86 40 H 107/58 L 95 05/03/23 10:00 94 92 46 H 103/58 L 96 05/03/23 09:49 91 41 H 118/73 95 05/03/23 09:22 134/88 H 05/03/23 09:00 91 45 H 119/60 97 4 Intake & Output: Intake & Output 04/30/23 05/01/23 05/02/23 05/03/23 23:59 23:59 23:59 23:59 Intake Total 3676.474 4209.908 4105.109 1588.75 Output Total 2235 2845 1978 1292 Balance 3175.660 5982.908 2127.109 296.75 - Objective General Appearance: positive: Moderate distress (Tachypneic, despite BIPAP support. Has better volume air mvm today) Eyes Bilateral: positive: No lid inflammation ENT: positive: Dry mucous membranes, Other (wearing BIPAP mask) Neck: positive: Trachea midline Respiratory: positive: Breath sounds nml (Tachypneic) Cardiovascular: positive: Regular rate & rhythm, No murmur Abdomen: positive: Non-tender, Nml bowel sounds, No distention Skin: positive: Warm, Dry Extremities: positive: Non-tender, No pedal edema Neurologic/Psychiatric: positive: Other (Lethargic, moves all extrem spont, when not sedated he can squeeze hand in communication with son) - Lab Results Fish Bones: 05/03/23 04:16 05/03/23 04:16 Other Labs: Lab Results x24hrs 05/03/23 05/03/23 05/03/23 Range/Units 06:10 04:16 04:16 WBC 10.0 (4.8-10.8) x10^3/uL RBC 2.55 L (4.70-6.10) 10^6/uL Hgb 8.3 L (14.0-18.0) g/dL Hct 27.3 L (42.0-52.0) % MCV 107.1 H (80.0-94.0) fL MCH 32.5 H (27.0-31.0) pg MCHC 30.4 L (32.0-36.0) g/dL RDW 19.2 H (12.0-15.0) % Plt Count 106 L (130-450) 10^3/uL MPV 9.8 (7.4-11.4) fL Neut # (Auto) 7.9 H (1.5-6.6) 10^3/uL Lymph # (Auto) 0.6 L (1.5-3.5) 10^3/uL Larue # (Auto) 1.2 H (0.0-1.0) 10^3/uL Eos # (Auto) 0.2 (0.0-0.7) 10^3/uL Baso # (Auto) 0.0 (0.0-0.1) 10^3/uL Absolute Nucleated RBC 0.04 x10^3/uL Nucleated RBC % 0.4 /100WBC Bld Gas Analysis Time 0621 Sample Site RIGHT RADIAL ABG pH 7.46 H (7.35-7.45) ABG pCO2 46 H (34-45) mmHg ABG pO2 77 L (80-100) mmHg ABG HCO3 32.3 H (22.0-26.0) mmol/L ABG Total CO2 33.7 H (21.0-29.0) MMOL/L ABG O2 Saturation 96 (94-98) % ABG Base Excess 7.7 H (-2.0-3.0) mmol/L Juaquin Test POSITIVE VBG pH 7.409 (7.31-7.41) Ionized Calcium 1.45 H (1.15-1.33) mmol/L O2 Delivery Device BiPAP FiO2 40.00 EPAP 5 cmH2O IPAP 12 cmH2O Sodium (135-145) mmol/L Potassium (3.5-4.5) mmol/L Chloride (101-111) mmol/L Carbon Dioxide (21-32) mmol/L Anion Gap (6-13) BUN (6-20) mg/dL Creatinine (0.6-1.3) mg/dL Estimated GFR (MDRD) (>89) Glucose (74-104) mg/dL Calcium (8.5-10.3) mg/dL Phosphorus (2.5-5.0) mg/dL Magnesium (1.7-2.3) mg/dL B-Natriuretic Peptide (5-100) pg/mL 05/03/23 05/03/23 05/02/23 Range/Units 04:16 04:16 21:05 WBC (4.8-10.8) x10^3/uL RBC (4.70-6.10) 10^6/uL Hgb (14.0-18.0) g/dL Hct (42.0-52.0) % MCV (80.0-94.0) fL MCH (27.0-31.0) pg MCHC (32.0-36.0) g/dL RDW (12.0-15.0) % Plt Count (130-450) 10^3/uL MPV (7.4-11.4) fL Neut # (Auto) (1.5-6.6) 10^3/uL Lymph # (Auto) (1.5-3.5) 10^3/uL Larue # (Auto) (0.0-1.0) 10^3/uL Eos # (Auto) (0.0-0.7) 10^3/uL Baso # (Auto) (0.0-0.1) 10^3/uL Absolute Nucleated RBC x10^3/uL Nucleated RBC % /100WBC Bld Gas Analysis Time Sample Site ABG pH (7.35-7.45) ABG pCO2 (34-45) mmHg ABG pO2 (80-100) mmHg ABG HCO3 (22.0-26.0) mmol/L ABG Total CO2 (21.0-29.0) MMOL/L ABG O2 Saturation (94-98) % ABG Base Excess (-2.0-3.0) mmol/L Juaquin Test VBG pH (7.31-7.41) Ionized Calcium (1.15-1.33) mmol/L O2 Delivery Device FiO2 EPAP cmH2O IPAP cmH2O Sodium 143 (135-145) mmol/L Potassium 4.0 4.1 (3.5-4.5) mmol/L Chloride 107 (101-111) mmol/L Carbon Dioxide 33 H (21-32) mmol/L Anion Gap 3.0 L (6-13) BUN 18 (6-20) mg/dL Creatinine 0.9 (0.6-1.3) mg/dL Estimated GFR (MDRD) 80 L (>89) Glucose 109 H (74-104) mg/dL Calcium 10.6 H (8.5-10.3) mg/dL Phosphorus 2.8 (2.5-5.0) mg/dL Magnesium 1.9 (1.7-2.3) mg/dL B-Natriuretic Peptide 891 H (5-100) pg/mL 05/02/23 05/02/23 05/02/23 Range/Units 17:54 14:00 14:00 WBC (4.8-10.8) x10^3/uL RBC (4.70-6.10) 10^6/uL Hgb (14.0-18.0) g/dL Hct (42.0-52.0) % MCV (80.0-94.0) fL MCH (27.0-31.0) pg MCHC (32.0-36.0) g/dL RDW (12.0-15.0) % Plt Count (130-450) 10^3/uL MPV (7.4-11.4) fL Neut # (Auto) (1.5-6.6) 10^3/uL Lymph # (Auto) (1.5-3.5) 10^3/uL Larue # (Auto) (0.0-1.0) 10^3/uL Eos # (Auto) (0.0-0.7) 10^3/uL Baso # (Auto) (0.0-0.1) 10^3/uL Absolute Nucleated RBC x10^3/uL Nucleated RBC % /100WBC Bld Gas Analysis Time Sample Site ABG pH (7.35-7.45) ABG pCO2 (34-45) mmHg ABG pO2 (80-100) mmHg ABG HCO3 (22.0-26.0) mmol/L ABG Total CO2 (21.0-29.0) MMOL/L ABG O2 Saturation (94-98) % ABG Base Excess (-2.0-3.0) mmol/L Juaquin Test VBG pH (7.31-7.41) Ionized Calcium (1.15-1.33) mmol/L O2 Delivery Device FiO2 EPAP cmH2O IPAP cmH2O Sodium (135-145) mmol/L Potassium 3.9 3.4 L (3.5-4.5) mmol/L Chloride (101-111) mmol/L Carbon Dioxide (21-32) mmol/L Anion Gap (6-13) BUN (6-20) mg/dL Creatinine (0.6-1.3) mg/dL Estimated GFR (MDRD) (>89) Glucose (74-104) mg/dL Calcium (8.5-10.3) mg/dL Phosphorus 2.9 (2.5-5.0) mg/dL Magnesium (1.7-2.3) mg/dL B-Natriuretic Peptide (5-100) pg/mL Sepsis Event Note (H) - Evaluation Current Stage of Sepsis: Septic shock Possible source of Sepsis: positive: Pulmonary Assessment/Plan - Problem List (1) Septic shock Impression: Slightly improved; he was able to be weaned off of dobutamine and is on only 4 mcg of Levophed today, and maintaining his MAP >65 Etiology is unclear, but most likely a pneumonia source. Blood cultures are negative to date. Yesterday and today I had further discussion with DPRENETTA Rodriguez, offering intubation because he is tiring with resp rate 40 despite being on BIPAP. However with his stage IV cancer and postobstructive pneumonia and septic shock, he has a low chance of surviving this hospitalization. I offered to start comfort care when we spoke yesterday. The DPOA wants to follow his father's wish "to fight" but also want to still be able to communicate with the patient. Thus Michael stated to not yet put patient on a ventilator today, but wants everything else possible to be done, including feeds Plan: I discussed TPN with Auctioneer Tobacco Meredith, and Pharmacist Matilda and we will start iv TPN today, no ng feeds ordered as he will not be able to have proper BIPAP mask fit if ng tube is placed. Will switch LR to TPN hydration at ~75 cc/hr Assure he is getting DVT prophylaxis and stress ulcer prophylaxis, and oral care Continue empiric iv Zosyn and iv Vancomycin empiric coverage for HCAP, since he was just hospitalized 2 weeks ago Continue with pressors (2) Acute respiratory failure with hypoxia Impression: The patient has been on BiPAP in the ICU. He saturates 94 to 100% ABG today shows adequate pH and saturation (all labs were reviewed). The DPOA wants to follow his father's wish "to fight" but also want to still be able to communicate with the patient. Michael does not want sedative drip, so no vent today Plan: Remain on BiPAP and will consider intubation and ventilator use Assure he is getting DVT prophylaxis and stress ulcer prophylaxis (3) HCAP Impression: This is the presumed cause of his sepsis and resp distress Plan: Continue empiric iv Zosyn Cont iv Vancomycin empiric coverage for HCAP, since he was just hospitalized 2 weeks ago (4) Atrial fibrillation with rapid ventricular response Impression: New onset on 04/30/2023, he had episode of Afib with RVR, heart rate 140s. Was given digoxin and amiodarone, patient went into sinus after treatment. The Echo was done 05/02 and showed normal LV size and function and a dilated RV with pulmonary hypertension, PA pressure 51 mmHg Plan: Continue telemetry monitoring I will change the amiodarone drip to daily iv Amio Give digoxin if RVR Cont monitoring electrolytes, optimize potassium, magnesium levels with the goal of potassium over 4, magnesium over 2 (5) Anemia Impression: He got blood transfused when Hgb was 7. Stable hemoglobin since then. However his stool guaic test was recently positive. He had the recent admission for melena. 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 He was not even discharged from SNF to get more malignancy W/U, before being admitted this time. (8) Anasarca Impression: Improving, has less swelling of arms and legs The Echo was done yesterday 05/02 and showed normal LV size and function but he has cor pulmonale and pulm HTN Plan: Cont daily iv LAsix If needed will give albumin, then addl Lasix Watch volume status. Will switch LR to iv tpn today (9) COPD with hypoxia Impression: Unknown if he has ever had PFTs and he did not qualify for Home O2 on day of recent discharge. The 2 sons shared with me that they knew he had "mild emphysema". He is not wheezing Plan: Cont prn Duonebs Cont BIPAP & suppl O2 (10) Pulmonary HTN Impression: The Echo was done 05/02 and showed a dilated RV with pulmonary hypertension, PA pressure 51 mmHg His cor pulmonale suggest that he has had longstanding COPD. (11) BPH with elevated PSA Impression: As per Hx (12) Chronic indwelling Lopez catheter Impression: As per Hx. The last (recent) admission was for a CAUTI
--- NOTE | 2023-05-03 15:52 | ADVANCE CARE PLANNING NOTE ---
Advance Care Planning - Planning Encounter Date: 05/03/23 Time: 15:30 Purpose: Son and DPOA Michael requested a visit after considering what happens during CPR Parties in Attendance: I spoke to son Michael outside the pt's room. In close proximity was pt's RN Neema. Decisional Capacity of the Patient: He is intermittently sedated with iv Morphine to treat respiratory distress and currently has no decisional capacity. - Diagnosis for Encounter (1) Septic shock Summary: Patient presented with septic shock from pneumonia which appears to be a postobstructive pneumonia from a lung tumor. There are mets in various bones and we think the primary malignancy is the lung tumor. Patient is requiring BiPAP for supplemental O2 and ventilatory support. He is on broad-spectrum antibiotics and on IV pressors to maintain blood pressure. - Encounter Subjective/Patient's Story: Patient has COPD, a lung tumor with mets and elevated PSA with a chronic Lopez. He presented from SNF in septic shock. He is in critical condition. The patient had been a DNR during the last recent hospitalization and upon presentation to the ER now he himself made himself a full code. The son wants to respect his wishes. The son however does not want him to suffer. With discussion of what happens with cracked ribs during CPR, the son voiced that he does not want to have his father undergo CPR or defibrillation. Objective/Medical Story: Patient's septic shock is slightly improved, he is on less pressors. He is now on broadened IV antibiotics for the postobstructive pneumonia. He is in marked respiratory distress, tachypneic but is on BiPAP for O2 supplement and ventilation support. The son had decided yesterday and earlier today that he does not want him on a sedative drip which she would be on if he was intubated and on the ventilator. Goals of Care: The son wants the patient to have full medical management. Nothing to be withdrawn. No CPR or defibrillation wanted for a cardiac arrest. The patient wanted to be intubated if it is necessary. The son wants to co ntinue to hold off and try to not intubate the patient, so that the pt is not on a sedative drip. Plan: I will change CODE STATUS from full code to DNR. Code Status: Do Not Attempt Resuscitation Time spent on advance care plannin min
[2023-05-03] MEDS: NORepinephrine 8 MG in DEXTROSE 5% 250ML IV SCH (16:56)
[2023-05-03] MEDS: VANCOMYCIN INJ 1 GM in SODIUM CHLORIDE 0.9% 250 ML IV SCH (17:39)
[2023-05-03] MEDS: TPN (CLINIMIX E 5/15) 2,000 ML with MULTIVITAMIN 10 ML, TRACE ELEMENTS 1 ML IV SCH ×3 (18:43)
[2023-05-03] MEDS: FAT EMULSION 20% 250 ML IV SCH (18:47)
[2023-05-04] MEDS: MORPHINE 2 MG/ML CARPUJECT IVP PRN ×5 (01:47→23:47)
[2023-05-04] MEDS: SODIUM CHLORIDE FLUSH 0.9% 10 ML SYRINGE IVP SCH ×4 (01:49→22:27)
[2023-05-04] MEDS: LORazepam 2 MG/ML VIAL IVP PRN ×4 (03:42→22:53)
[2023-05-04 04:34] LABS: BASOPHILS % (AUTO) 0.1 %; EOSINOPHILS # (AUTO) 0.2 10^3/uL (0.0-0.7); EOSINOPHILS % (AUTO) 2.3 %; HCT - HEMATOCRIT 26.9 % (42.0-52.0); HGB - HEMOGLOBIN 8.3 g/dL (14.0-18.0); LYMPHOCYTES # (AUTO) 0.3 10^3/uL (1.5-3.5); LYMPHOCYTES % (AUTO) 3.4 %; MEAN CORPUSCULAR HEMOGLOBIN 33.3 pg (27.0-31.0); MEAN CORPUSCULAR HGB CONC 30.9 g/dL (32.0-36.0); MEAN PLATELET VOLUME 10.4 fL (7.4-11.4); MONOCYTES # (AUTO) 0.8 10^3/uL (0.0-1.0); MONOCYTES % (AUTO) 8.9 %; NEUTROPHILS # (AUTO) 7.5 10^3/uL (1.5-6.6); NEUTROPHILS % (AUTO) 84.2 %; NRBC ABSOLUTE COUNT (AUTO) 0.04 x10^3/uL; NUCLEATED RED BLOOD CELLS AUTO 0.5 /100WBC; PLT - PLATELET COUNT 137 10^3/uL (130-450); RED BLOOD COUNT 2.49 10^6/uL (4.70-6.10); WHITE BLOOD COUNT 8.9 x10^3/uL (4.8-10.8)
[2023-05-04 04:55] LABS: CALCIUM, IONIZED 1.39 mmol/L (1.15-1.33); VBG PH 7.462 (7.31-7.41)
[2023-05-04 05:30] LABS: ALBUMIN 2.4 g/dL (3.2-5.5); MAGNESIUM 1.8 mg/dL (1.7-2.3); PHOSPHORUS 2.1 mg/dL (2.5-5.0)
[2023-05-04 05:38] LABS: BILIRUBIN,TOTAL 0.5 mg/dL (0.2-1.0); CALCIUM 10.2 mg/dL (8.5-10.3); POTASSIUM 3.3 mmol/L (3.5-4.5); TOTAL PROTEIN 4.8 g/dL (6.4-8.9)
[2023-05-04] MEDS ORDERED: MAGNESIUM SULFATE 2 GRAM 2 GM/50 ML BAG IV ONE (05:40)
[2023-05-04] MEDS: PIPERACILLIN/TAZOBACTAM 4.5 GM in SODIUM CHLORIDE 0.9% MINIBAG 100 ML IV SCH ×3 (06:26→22:22)
[2023-05-04] MEDS: AMIODARONE 360 MG/200 ML 200 ML IV SCH (06:35)
[2023-05-04 06:37] LABS: ABG HCO3 30.2 mmol/L (22.0-26.0); ABG PCO2 42 mmHg (34-45); ABG PH 7.47 (7.35-7.45); ABG PO2 71 mmHg (80-100); ABG TCO2 31.4 MMOL/L (21.0-29.0)
[2023-05-04 06:38] LABS: ABG OXYGEN SATURATION 94 % (94-98); ALLEN TEST POSITIVE
[2023-05-04] MEDS ORDERED: POTASSIUM PHOSPHATE 15 MMOL in SODIUM CHLORIDE 0.9% 250 ML IV ONE (08:00)
--- NOTE | 2023-05-04 08:23 | XRAY Report ---
PROCEDURE: Chest 1 View X-Ray INDICATIONS: F/U lung mass and infiltrate TECHNIQUE: One view of the chest was acquired. COMPARISON: 05/01/2023 FINDINGS: Surgical changes and devices: None. Lungs and pleura: No pneumothorax. Small bilateral pleural effusions. Moderate diffuse reticulonodul ar pulmonary opacity is unchanged. Bibasilar pulmonary airspace opacity is unchanged. Mediastinum: Mediastinal contours appear normal. Heart size is normal. Bones and chest wall: No suspicious bony lesions. Overlying soft tissues appear unremarkable. IMPRESSION: 1. No change in bilateral atypical pneumonia versus edema. 2. Bibasilar atelectasis versus pneumonia is unchanged. Follow-up PA and lateral chest x-rays or ches t CT is recommended to ensure resolution, and to exclude underlying neoplasm. Reviewed by: Dewayne Almaraz MD on 05/04/2023 8:21 AM PDT Approved by: Dewayne Almaraz MD on 05/04/2023 8:21 AM PDT Station ID: [id number]
[2023-05-04] MEDS: AMIODARONE 450 MG/9 ML VIAL IVP SCH ×2 (08:35→20:22)
[2023-05-04] MEDS: PANTOPRAZOLE 40 MG VIAL IVP SCH ×2 (08:35→20:13)
[2023-05-04] MEDS: NICOTINE 14 MG PATCH TOP SCH (08:35)
[2023-05-04] MEDS: FUROSEMIDE 40 MG/4 ML VIAL IVP SCH (08:35)
[2023-05-04] MEDS: DOBUTamine 500 MG/250 ML 500 MG/250 ML BAG IV SCH ×2 (08:44→15:19)
--- NOTE | 2023-05-04 14:45 | PROVIDER PROGRESS NOTE ---
Subjective - Subjective Pt reports feeling: Improved (He is off pressors, remains on BIPAP, still tachypneic, communicates by squeezing sons hands) Objective - Vital Signs/Intake & Output Vital Signs: Vital Signs Temp Pulse Pulse Resp BP Pulse Ox 05/04/23 14:00 86 48 H 108/58 L 94 05/04/23 13:46 76 05/04/23 13:45 87 132/76 H 05/04/23 13:15 87 113/76 05/04/23 13:00 87 44 H 107/87 H 91 L 05/04/23 12:55 86 121/60 05/04/23 12:40 84 45 H 127/68 92 05/04/23 12:35 88 128/70 05/04/23 12:24 86 127/75 05/04/23 12:22 78 05/04/23 12:17 86 147/68 H 05/04/23 12:00 36.5 C 77 39 H 107/60 94 05/04/23 11:57 79 108/65 05/04/23 11:00 79 32 H 104/57 L 95 Intake & Output: Intake & Output 05/01/23 05/02/23 05/03/23 05/04/23 23:59 23:59 23:59 23:59 Intake Total 4209.908 4105.109 2620.764 1126.251 Output Total 2845 1978 2047 1305 Balance 9913.330 5371.109 573.764 -178.749 - Objective General Appearance: positive: Moderate distress (tachypneic), Lethargic, Other (Moves extrem spont) Eyes Bilateral: positive: No lid inflammation ENT: positive: Dry mucous membranes, Other (Has on BIPAP mask) Neck: positive: Nml inspection Respiratory: positive: Breath sounds nml (Tachypneic) Cardiovascular: positive: Regular rate & rhythm Abdomen: positive: Non-tender, No distention Skin: positive: Warm, Dry Extremities: positive: Non-tender, No pedal edema Neurologic/Psychiatric: positive: Other (Lethargic, moves all extrem spontaneously) - Lab Results Fish Bones: 05/04/23 04:24 05/04/23 04:24 Other Labs: Lab Results x24hrs 05/04/23 05/04/23 05/04/23 Range/Units 11:46 06:15 06:06 WBC (4.8-10.8) x10^3/uL RBC (4.70-6.10) 10^6/uL Hgb (14.0-18.0) g/dL Hct (42.0-52.0) % MCV (80.0-94.0) fL MCH (27.0-31.0) pg MCHC (32.0-36.0) g/dL RDW (12.0-15.0) % Plt Count (130-450) 10^3/uL MPV (7.4-11.4) fL Neut # (Auto) (1.5-6.6) 10^3/uL Lymph # (Auto) (1.5-3.5) 10^3/uL [place] # (Auto) (0.0-1.0) 10^3/uL Eos # (Auto) (0.0-0.7) 10^3/uL Baso # (Auto) (0.0-0.1) 10^3/uL Absolute Nucleated RBC x10^3/uL Nucleated RBC % /100WBC Bld Gas Analysis Time 0628 Sample Site RIGHT RADIAL ABG pH 7.47 H (7.35-7.45) ABG pCO2 42 (34-45) mmHg ABG pO2 71 L (80-100) mmHg ABG HCO3 30.2 H (22.0-26.0) mmol/L ABG Total CO2 31.4 H (21.0-29.0) MMOL/L ABG O2 Saturation 94 (94-98) % ABG Base Excess 6.0 H (-2.0-3.0) mmol/L [place] Test POSITIVE VBG pH (7.31-7.41) Ionized Calcium (1.15-1.33) mmol/L O2 Delivery Device BiPAP FiO2 40.00 EPAP 5 cmH2O IPAP 12 cmH2O Sodium (135-145) mmol/L Potassium (3.5-4.5) mmol/L Chloride (101-111) mmol/L Carbon Dioxide (21-32) mmol/L Anion Gap (6-13) BUN (6-20) mg/dL Creatinine (0.6-1.3) mg/dL Estimated GFR (MDRD) (>89) Glucose (74-104) mg/dL POC Whole Bld Glucose 145 H 168 H (70 - 100) mg/dL Calcium (8.5-10.3) mg/dL Phosphorus (2.5-5.0) mg/dL Magnesium (1.7-2.3) mg/dL Total Bilirubin (0.2-1.0) mg/dL AST (10-42) IU/L ALT (10-60) IU/L Alkaline Phosphatase (42-121) IU/L B-Natriuretic Peptide (5-100) pg/mL Total Protein (6.4-8.9) g/dL Albumin (3.2-5.5) g/dL Globulin (2.1-4.2) g/dL Albumin/Globulin Ratio (1.0-2.2) Prealbumin (17-34) mg/dL Triglycerides (48-352) mg/dL 05/04/23 05/04/23 05/04/23 Range/Units 04:24 04:24 04:24 WBC 8.9 (4.8-10.8) x10^3/uL RBC 2.49 L (4.70-6.10) 10^6/uL Hgb 8.3 L (14.0-18.0) g/dL Hct 26.9 L (42.0-52.0) % MCV 108.0 H (80.0-94.0) fL MCH 33.3 H (27.0-31.0) pg MCHC 30.9 L (32.0-36.0) g/dL RDW 19.0 H (12.0-15.0) % Plt Count 137 (130-450) 10^3/uL MPV 10.4 (7.4-11.4) fL Neut # (Auto) 7.5 H (1.5-6.6) 10^3/uL Lymph # (Auto) 0.3 L (1.5-3.5) 10^3/uL [place] # (Auto) 0.8 (0.0-1.0) 10^3/uL Eos # (Auto) 0.2 (0.0-0.7) 10^3/uL Baso # (Auto) 0.0 (0.0-0.1) 10^3/uL Absolute Nucleated RBC 0.04 x10^3/uL Nucleated RBC % 0.5 /100WBC Bld Gas Analysis Time Sample Site ABG pH (7.35-7.45) ABG pCO2 (34-45) mmHg ABG pO2 (80-100) mmHg ABG HCO3 (22.0-26.0) mmol/L ABG Total CO2 (21.0-29.0) MMOL/L ABG O2 Saturation (94-98) % ABG Base Excess (-2.0-3.0) mmol/L [place] Test VBG pH 7.462 H (7.31-7.41) Ionized Calcium 1.39 H (1.15-1.33) mmol/L O2 Delivery Device FiO2 EPAP cmH2O IPAP cmH2O Sodium (135-145) mmol/L Potassium (3.5-4.5) mmol/L Chloride (101-111) mmol/L Carbon Dioxide (21-32) mmol/L Anion Gap (6-13) BUN (6-20) mg/dL Creatinine (0.6-1.3) mg/dL Estimated GFR (MDRD) (>89) Glucose (74-104) mg/dL POC Whole Bld Glucose (70 - 100) mg/dL Calcium (8.5-10.3) mg/dL Phosphorus (2.5-5.0) mg/dL Magnesium (1.7-2.3) mg/dL Total Bilirubin (0.2-1.0) mg/dL AST (10-42) IU/L ALT (10-60) IU/L Alkaline Phosphatase (42-121) IU/L B-Natriuretic Peptide 920 H (5-100) pg/mL Total Protein (6.4-8.9) g/dL Albumin (3.2-5.5) g/dL Globulin (2.1-4.2) g/dL Albumin/Globulin Ratio (1.0-2.2) Prealbumin (17-34) mg/dL Triglycerides (48-352) mg/dL 05/04/23 05/04/23 05/03/23 Range/Units 04:24 00:12 18:05 WBC (4.8-10.8) x10^3/uL RBC (4.70-6.10) 10^6/uL Hgb (14.0-18.0) g/dL Hct (42.0-52.0) % MCV (80.0-94.0) fL MCH (27.0-31.0) pg MCHC (32.0-36.0) g/dL RDW (12.0-15.0) % Plt Count (130-450) 10^3/uL MPV (7.4-11.4) fL Neut # (Auto) (1.5-6.6) 10^3/uL Lymph # (Auto) (1.5-3.5) 10^3/uL [place] # (Auto) (0.0-1.0) 10^3/uL Eos # (Auto) (0.0-0.7) 10^3/uL Baso # (Auto) (0.0-0.1) 10^3/uL Absolute Nucleated RBC x10^3/uL Nucleated RBC % /100WBC Bld Gas Analysis Time Sample Site ABG pH (7.35-7.45) ABG pCO2 (34-45) mmHg ABG pO2 (80-100) mmHg ABG HCO3 (22.0-26.0) mmol/L ABG Total CO2 (21.0-29.0) MMOL/L ABG O2 Saturation (94-98) % ABG Base Excess (-2.0-3.0) mmol/L [place] Test VBG pH (7.31-7.41) Ionized Calcium (1.15-1.33) mmol/L O2 Delivery Device FiO2 EPAP cmH2O IPAP cmH2O Sodium 143 (135-145) mmol/L Potassium 3.3 L (3.5-4.5) mmol/L Chloride 106 (101-111) mmol/L Carbon Dioxide 33 H (21-32) mmol/L Anion Gap 4.0 L (6-13) BUN 22 H (6-20) mg/dL Creatinine 1.0 (0.6-1.3) mg/dL Estimated GFR (MDRD) 71 L (>89) Glucose 174 H (74-104) mg/dL POC Whole Bld Glucose 156 H 93 (70 - 100) mg/dL Calcium 10.2 (8.5-10.3) mg/dL Phosphorus 2.1 L (2.5-5.0) mg/dL Magnesium 1.8 (1.7-2.3) mg/dL Total Bilirubin 0.5 (0.2-1.0) mg/dL AST 15 (10-42) IU/L ALT 12 (10-60) IU/L Alkaline Phosphatase 225 H (42-121) IU/L B-Natriuretic Peptide (5-100) pg/mL Total Protein 4.8 L (6.4-8.9) g/dL Albumin 2.4 L (3.2-5.5) g/dL Globulin 2.4 (2.1-4.2) g/dL Albumin/Globulin Ratio 1.0 (1.0-2.2) Prealbumin 3 L (17-34) mg/dL Triglycerides 194 (48-352) mg/dL Sepsis Event Note (H) - Evaluation Current Stage of Sepsis: Septic shock Possible source of Sepsis: positive: Pulmonary Assessment/Plan - Problem List (1) Acute respiratory failure with hypoxia Impression: The patient has been on BiPAP in the ICU. He saturates 94 to 100% ABG today shows adequate pH and saturation (all labs were reviewed). The DPOA wants to follow his father's wish "to fight" but also want to still be able to communicate with the patient. Michael does not want sedative drip, so no ventilator Plan: Remain on BiPAP and will consider intubation and ventilator use (2) Septic shock Impression: Improved; he was able to be weaned off of Levophed today, and maintaining his MAP >65 Etiology is felt to be a pneumonia source. Blood cultures are negative to date. Daily I have discussed with DPOA Michael, offering intubation because pt is likely tiring with resp rate 40 despite being on BIPAP. However with his stage IV cancer and postobstructive pneumonia and septic shock, he has a low chance of surviving this hospitalization. I offered to start comfort care when we spoke. The DPOA wants to follow his father's wish "to fight" but also wants to still be able to communicate with the patient. Thus Michael stated to not yet put patient on a ventilator, but wants everything else possible to be done, including feeds TPN was started yesterday 05/03 Plan: Assure he is getting DVT prophylaxis and stress ulcer prophylaxis, and oral care Continue TPN, empiric iv Zosyn and iv Vancomycin, coverage for HCAP, since he was just hospitalized several weeks ago (3) HCAP Impression: This is the presumed cause of his sepsis and resp distress Chest x-ray was repeated today and shows unchanged mass and bilateral infiltrates Plan: Continue empiric iv Zosyn Cont iv Vancomycin empiric coverage for HCAP, since he was just hospitalized 2 weeks ago (4) Atrial fibrillation with rapid ventricular response Impression: Tachycardia improved New onset on 04/30/2023, he had episode of Afib with RVR, heart rate 140s. Was given digoxin and amiodarone, patient went into sinus after treatment. The Echo was done 05/02 and showed normal LV size and function and a dilated RV with pulmonary hypertension, PA pressure 51 mmHg Plan: Continue telemetry monitoring I will change the Amiodarone drip to iv Amio 100 mg BID Give Digoxin if RVR Cont monitoring electrolytes, optimize potassium, magnesium levels with the goal of potassium over 4, magnesium over 2 (5) Anemia Impression: He got blood transfused when Hgb was 7. Stable hemoglobin since then. However his stool guaic test was recently positive. He had the recent admission for melena. With recent diagnosed GI bleed and current septic shock status, patient has high risk for mortality Plan: Continue to give Protonix iv twice daily, Monitoring hemoglobin level daily, transfuse if hemoglobin less than 8 (6) Lesion of lung Impression: He has a lung mass, and I suspect he has an obstructive pneumonia. CXR was done today and showed no change. Plan: Not stable for paracentesis or lung bipsy. 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 He was not even discharged from SNF to get more malignancy W/U, before being admitted this time. (8) Anasarca Impression: Improving, has less swelling of arms and legs The Echo was done 05/02 and showed normal LV size and function but he has cor p ulmonale and pulm HTN Plan: Cont daily iv LAsix If needed will give albumin, then addl Lasix Watch volume status. Will switch LR to iv tpn today (9) COPD with hypoxia Impression: Unknown if he has ever had PFTs and he did not qualify for Home O2 on day of rec ent discharge. The 2 sons shared with me that they knew he had "mild emphysema". He is wheezing today Plan: Will order the Duonebs scheduled and also cont prn Duonebs Cont BIPAP & suppl O2 (10) Pulmonary HTN Impression: The Echo was done 05/02 and showed a dilated RV with pulmonary hypertension, PA pressure 51 mmHg His cor pulmonale suggest that he has had longstanding COPD. (11) BPH with elevated PSA Impression: As per Hx (12) Chronic indwelling Lopez catheter Impression: As per Hx. The last (recent) admission was for a CAUTI
[2023-05-04 15:41] LABS: MAGNESIUM 2.1 mg/dL (1.7-2.3); POTASSIUM 3.1 mmol/L (3.5-4.5)
[2023-05-04] MEDS: POTASSIUM CHLOR 20 MEQ/100 ML 20 MEQ/100 ML BAG IV SCH ×2 (15:56→17:05)
[2023-05-04] MEDS: FAT EMULSION 20% 250 ML IV SCH (18:10)
[2023-05-04] MEDS: TPN (CLINIMIX E 5/15) 2,000 ML with MULTIVITAMIN 10 ML, TRACE ELEMENTS 1 ML IV SCH ×3 (18:16)
[2023-05-04] MEDS: VANCOMYCIN INJ 1 GM in SODIUM CHLORIDE 0.9% 250 ML IV SCH (18:18)
[2023-05-04] MEDS ORDERED: IPRATROPIUM/ALBUTEROL 3 ML NEB INH SCH (19:00)
[2023-05-04] MEDS ORDERED: POTASSIUM CHLOR 20 MEQ/100 ML 20 MEQ/100 ML BAG IV ONE (21:12)
[2023-05-04] MEDS: SODIUM CHLORIDE FLUSH 0.9% 10 ML SYRINGE IVP PRN ×2 (23:43→23:47)
[2023-05-05] MEDS ORDERED: POTASSIUM CHLOR 20 MEQ/100 ML 20 MEQ/100 ML BAG IV ONE (00:24)
[2023-05-05] MEDS: MORPHINE 2 MG/ML CARPUJECT IVP PRN (03:16)
[2023-05-05] MEDS: NORepinephrine 8 MG in DEXTROSE 5% 250ML IV SCH (04:11)
[2023-05-05 06:03] VITALS: BP 63/37; O2SAT 80
--- NOTE | 2023-05-05 08:00 | DISCHARGE SUMMARY ---
Discharge Summary Admit Date: 04/28/23 Discharge Date: 05/05/23 Discharging Provider: Dr Elisa Crabtree Primary Care Provider: Dr Derek Henao Code Status: Do Not Attempt Resuscitation Discharge Disposition: 20 - HPI History of Present Illness: An 88 year old male with history of hypertension, COPD, with possible lung malignancy pending outpatient evaluation, recent GI bleed, BPH with chronic Lopez, osteoarthritis, chronic back pain. Recent hospitalization from 04/16/23 - 04/20/23 for generalized weakness, and on that hospitalization was found to have GI bleed, and metastatic cancer of unclear primary, likely prostate vs lung. Also had a COPD exacerbation and UTI then, which improved, and he was discharged to [facility] on continued Levofloxacin for UTI and COPD exacerbation and for getting PT and OT rehab. Patient was brought in by EMS now due to worsening SOB, and chest x-ray showed left lower lobe pneumonia. He had been started on Augmentin and Doxycycline before coming to ER. Per EMS, patient's blood pressure was 90/60. On arrival to ED patient was tachypnea, oxygen saturation 88% on room air. The patient reports SOB and nausea, no vomiting, some abdominal cramping, no fever no chest pain. Patient was started on Levophed on 04/28/2023 around 2100, was admitted to ICU for further care. Patient reversed his DNR status to Full Code, while in the ER presently. - HOSPITAL COURSE Hospital Course: (1) Acute respiratory failure with hypoxia The patient was on BiPAP in the ICU, was saturating adequately. We considered intubation and ventilator use when he was tachypneic, but the son Michael JUDGE decided against it, and reverted his CODE status to DNR, given the overall poor prognosis (with his stage IV cancer, postobstructive pneumonia and septic shock), plus family desired to be able to communicate with him (by hand squeezing and gestures even). We started him on TPN since BIPAP mask support continued and no ng could be placed. (2) Septic shock He was on 2 iv pressors, on iv fluids, got blood transfused, and was on broad spectrum antibiotics. Etiology was felt to be a pneumonia source. Blood cultures were negative to date. He on 05/05/23 at 0503. (3) HCAP A postobstructive pneumonia was the presumed cause of his sepsis and respiratory distress. He remained on broad spectrum iv antibiotics. (4) Lesion of lung He had a lung mass, and we suspected he had an obstructive pneumonia. He was not stable for paracentesis or lung bipsy. 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 (6) COPD with hypoxia Unknown if he ever had PFTs, but he was not on Home O2. He got Duonebs, BIPAP & suppl O2 here. (7) Atrial fibrillation with rapid ventricular response New onset Afib occurred on 04/30/23, treated successfully with digoxin and amiodarone, and he converted back to sinus rhythm. An Echo was done 05/02/23 and showed normal LV size and function and a dilated RV with pulmonary hypertension, PA pressure 51 mmHg (8) Pulmonary HTN The Echo was done 05/02/23 and showed a dilated RV with pulmonary hypertension, PA pressure 51 mmHg. The Cor Pulmonale suggests that he had longstanding COPD. (9) Anemia He got blood transfused when Hgb was 7 and had stable hemoglobin after that. His stool guaic test was recently positive at the previous recent admission for melena. He was kept on empiric Protonix iv twice daily (10) Anasarca Resolved with gentle diuresis. (11) BPH with elevated PSA As per Hx (12) Chronic indwelling Lopez catheter As per Hx. The last (recent) admission was for a CAUTI - ALLERGIES Allergies/Adverse Reactions: Allergies Allergy/AdvReac Type Severity Reaction Status Date / Time No Known Drug Allergies Allergy Verified 04/28/23 14:50 - MEDICATIONS Home Medications: Ambulatory Orders Medication Instructions Recorded Confirmed Tamsulosin [Flomax] 0.4 mg PO DAILY 04/15/23 04/29/23 Acetaminophen [Tylenol] 650 mg PO TID #90 tab 04/20/23 04/29/23 Benzonatate [Tessalon] 100 mg PO TID PRN #30 cap 04/20/23 04/29/23 Ipratropium/Albuterol [Duoneb] 3 ml INH RTQID PRN #60 ea 04/20/23 04/29/23 Metoprolol Tartrate [Lopressor] 25 mg PO BID #60 tab 04/20/23 04/29/23 Montelukast [Singulair] 10 mg PO QPM #30 tab 04/20/23 04/29/23 Multivitamin W/Minerals [Theragran 1 tab PO DAILYWM #30 tab 04/20/23 04/29/23 M] Pantoprazole [Protonix] 40 mg PO BID #60 tab 04/20/23 04/29/23 Thiamine [Vitamin B-1] 100 mg PO DAILY #30 tablet 04/20/23 04/29/23 oxyCODONE [Roxicodone] 5 mg PO Q6HR PRN #10 tab 04/20/23 04/29/23 - LABS Result Diagrams: 05/04/23 04:24 05/04/23 23:40 - SEPSIS Current Stage of Sepsis: Septic shock Possible source of Sepsis: Pulmonary
== END 2023-05-05 05:41 | disposition expired | DRG 871 ==
LOC: EDUNIT# → ED 14:45 → ICU 21:49
PROVIDERS: ADMIT Student in an Organized Health Care Education/Training Program; ATTEND Internal Medicine
PROC: 30233N1 Transfusion of Nonautologous Red Blood Cells into Peripheral Vein, Percutaneous Approach (ICD-10-PCS; principal; 2023-04-30)
DX: A41.9 Sepsis, unspecified organism (principal); G93.41 Metabolic encephalopathy; J18.9 Pneumonia, unspecified organism; R65.21 Severe sepsis with septic shock; J96.01 Acute respiratory failure with hypoxia; C79.51 Secondary malignant neoplasm of bone; J44.0 Chronic obstructive pulmonary disease with (acute) lower respiratory infection; N39.0 Urinary tract infection, site not specified; Z87.891 Personal history of nicotine dependence; Z99.81 Dependence on supplemental oxygen; Y95 Nosocomial condition; R91.1 Solitary pulmonary nodule; I27.20 Pulmonary hypertension, unspecified; I27.81 Cor pulmonale (chronic); D64.9 Anemia, unspecified; R60.1 Generalized edema; N40.0 Benign prostatic hyperplasia without lower urinary tract symptoms; R97.20 Elevated prostate specific antigen [PSA]; Z96.0 Presence of urogenital implants; I10 Essential (primary) hypertension; Z66 Do not resuscitate; M54.9 Dorsalgia, unspecified; G89.29 Other chronic pain; J43.2 Centrilobular emphysema; I48.0 Paroxysmal atrial fibrillation; R19.5 Other fecal abnormalities
CPT/HCPCS: 36415; 36600; 70470; 71045; 71260; 71275; 74177; 80048; 80053; 80202; 81001; 82272; 82330; 82803; 83605; 83615; 83735; 83880; 84100; 84132; 84134; 84478; 85025; 85027; 85610; 85730; 86140; 86850; 86900; 86901; 86920; 87040; 87070; 87086; 87150; 87205; 87633; 93306; 94640; 94660; 96361; 96365; 99285; 99291; A6250; A9270; J0282; J1250; J2060; J3370; J3490; J7120; P9016; P9047; Q9963; Q9967